=== PATIENT | male | born 1945 | race Caucasian/White ===

== ENCOUNTER → 2016-09-19 | Outpatient (CLI) | payer OTHER ==
[~2016-09-19] MED LIST: ASPI-231 PO; ASPI-498 OR; ATOR20TA PO; ATOR20TA50 PO; DILT240C PO; FAM20T PO; LIS10T PO; NITR0.4S29 SL; NOR10T PO
[2016-09-19 08:16] LABS: Potassium 4.1 mmol/L (3.5-5.1)
[2016-09-19 08:20] LABS: Urine Bilirubin Negative (Negative); Urine Blood Negative /uL (Negative); Urine Color Yellow (Yellow); Urine Glucose Normal (Normal); Urine Ketone Negative (Negative); Urine Mucus FEW (None Seen); Urine Nitrite Negative (Negative); Urine RBC 1 /hpf (0 - 3); Urine Urobilinogen Normal (Negative)
[2016-09-19 08:25] LABS: Albumin 3.8 g/dL (3.4-5.0); BUN/Creatinine Ratio 9.8; Calcium 8.3 mg/dL (8.5-10.1)
[2016-09-19 08:28] LABS: Bilirubin, Total 0.7 mg/dL (0.2-1.0); Total Protein 7.4 g/dL (6.4-8.2)
[2016-09-19 08:46] LABS: Basophils # (auto) 0 uL; Basophils % (auto) 0.6 % (0.0-2.0); Eosinophils # (auto) 0.3 uL; Eosinophils % (auto) 4.4 % (0.0-7.0); Hemoglobin 15.6 g/dL (13.5-17.5); Lymphocytes % (auto) 26.5 % (10.0-50.0); Mean Corpuscular Hemoglobin 29.8 pg (28.0-32.0); Mean Corpuscular Hgb Conc. 31.8 g/dL (32.0-36.0); Mean Corpuscular Volume 93.6 fL (80.0-100.0); Mean Platelet Volume 13.5 fL (7.4-10.4); Monocytes # (auto) 0.6 uL; Neutrophils # (auto) 4.6 uL; Neutrophils % (auto) 60.5 % (37.0-80.0); Platelet Count (auto) 185 10^3/uL (140-450); Red Cell Distribution Width 14.5 % (11.6-16.0); SUSPECT VIEW TRANSMISSION; White Blood Cell 7.7 10^3/uL (4.4-10.8)
== END | disposition home or self-care (01) ==
LOC: LAB 06:31
PROVIDERS: ATTEND Internal Medicine
DX: Z00.00 Encounter for general adult medical examination without abnormal findings (principal)
CPT/HCPCS: 36415; 80053; 80061; 81001; 82043; 83036; 84153; 85025; G0434

== ENCOUNTER 2016-10-23 18:49 | Inpatient (IN) | payer OTHER ==
[~2016-10-23] VITALS: Ht 177.8 cm; Wt 115.0 kg
[2016-10-23] MEDS ORDERED: SODIUM CHLORIDE 0.9% 500 ML IVB ONE (19:03)
[2016-10-23] MEDS ORDERED: PANTOPRAZOLE SODIUM 40 MG/10 ML VIAL IV ONE (19:15)
[2016-10-23] MEDS ORDERED: HYDROmorphone HCL 2 MG/ML VL IV ONE ×2 (19:15→22:00)
[2016-10-23] MEDS ORDERED: ONDANSETRON HCL 4 MG/2 ML VIAL IV ONE (19:15)
[2016-10-23 20:43] LABS: Basophils # (auto) 0 uL; Basophils % (auto) 0.1 % (0.0-2.0); Eosinophils # (auto) 0 uL; Hematocrit 44.5 % (41.0-53.0); Hemoglobin 14.8 g/dL (13.5-17.5); Lymphocytes # (auto) 0.5 uL; Lymphocytes % (auto) 5.5 % (10.0-50.0); Mean Corpuscular Hemoglobin 30.5 pg (28.0-32.0); Mean Corpuscular Hgb Conc. 33.4 g/dL (32.0-36.0); Mean Corpuscular Volume 91.4 fL (80.0-100.0); Mean Platelet Volume 12.4 fL (7.4-10.4); Monocytes % (auto) 10.8 % (0.0-12.0); Neutrophils # (auto) 7.7 uL; Neutrophils % (auto) 83.6 % (37.0-80.0); Platelet Count (auto) 161 10^3/uL (140-450); Red Cell Distribution Width 14.3 % (11.6-16.0); SUSPECT VIEW TRANSMISSION; White Blood Cell 9.2 10^3/uL (4.4-10.8)
[2016-10-23 20:50] LABS: Albumin 3.5 g/dL (3.4-5.0); Amylase 33 U/L (25-115); Anion Gap 10 (5-15); Aspartate Aminotransferase 32 U/L (15-37); BUN/Creatinine Ratio 14.8; Blood Urea Nitrogen 20 mg/dL (7-18); Calcium 7.7 mg/dL (8.5-10.1); Carbon Dioxide 25 mmol/L (21-32); Chloride 98 mmol/L (98-107); GFR African American 67 mL/min; GFR Non-African American 55 mL/min; Glucose 141 mg/dL (74-106); Magnesium 2.4 mg/dL (1.6-2.6); Potassium 4.3 mmol/L (3.5-5.1); Sodium 133 mmol/L (136-145)
[2016-10-23 20:55] LABS: Alkaline Phosphatase 41 U/L (45-117); Bilirubin, Total 0.6 mg/dL (0.2-1.0); Total Protein 7.3 g/dL (6.4-8.2)
[2016-10-23] MEDS ORDERED: ACETAMINOPHEN 500 MG TAB PO PRN (22:15)
[2016-10-23] MEDS ORDERED: DEXTROSE (50%) 50ML SYRG IV PRN (22:15)
[2016-10-23] MEDS ORDERED: SODIUM CHLORIDE 0.9% 1,000 ML IV ONE (22:15)
[2016-10-23] MEDS ORDERED: cefTRIAXone 1GM/50ML D5W 50 ML IV ONE (22:30)
[2016-10-23] MEDS ORDERED: LACTULOSE 20Gm/30ML SOLN PO PRN (22:30)
[2016-10-23] MEDS ORDERED: NITROGLYCERIN 0.4 MG SL TAB SL PRN (22:30)
[2016-10-23] MEDS ORDERED: MORPHINE SULF INJ 2 MG/ML SYRINGE 1ML IV PRN (22:30)
[2016-10-23] MEDS: ATORVASTATIN 20 MG TAB PO SCH (22:32)
[2016-10-23] MEDS: ENOXAPARIN SOD 30 MG/0.3 ML SYRINGE SC SCH (22:32)
[2016-10-23] MEDS: cefTRIAXone 1GM/50ML D5W 50 ML IV SCH (22:32)
[2016-10-23 23:00] VITALS: BP 158/81
[2016-10-23 23:24] LABS: Urine Bilirubin Negative (Negative); Urine Blood 1+ /uL (Negative); Urine Color Yellow (Yellow); Urine Glucose 4+ mg/dL (Normal); Urine Granular Cast FEW /lpf (0); Urine Ketone 1+ (Negative); Urine Mucus FEW (None Seen); Urine Nitrite Negative (Negative); Urine RBC <1 /hpf (0 - 3); Urine Urobilinogen Normal (Negative)
[2016-10-23] MEDS: metroNIDAZOLE 500MG/100ML 100 ML IV SCH (23:42)
[2016-10-23] MEDS: ACCU-CHEK COMFORT CURVE STRIP VI SCH (23:54)
[2016-10-24] MEDS: InsuLIN REG 1unit/0.01ml Soln (100units/ml) SC SCH ×5 (00:10→23:38)
[2016-10-24] MEDS: ACCU-CHEK COMFORT CURVE STRIP VI SCH ×4 (06:09→23:37)
[2016-10-24] MEDS: MORPHINE SULFATE 4 MG/ML SYRG IV PRN ×4 (06:10→14:42)
[2016-10-24] MEDS: metroNIDAZOLE 500MG/100ML 100 ML IV SCH ×3 (06:11→23:26)
[2016-10-24 06:30] LABS: Basophils # (auto) 0 uL; Eosinophils # (auto) 0 uL; Hematocrit 41.1 % (41.0-53.0); Lymphocytes # (auto) 0.6 uL; Lymphocytes % (auto) 5.8 % (10.0-50.0); Mean Corpuscular Volume 91.1 fL (80.0-100.0); Mean Platelet Volume 13.2 fL (7.4-10.4); Monocytes # (auto) 1.3 uL; Neutrophils # (auto) 9.2 uL; Neutrophils % (auto) 82.2 % (37.0-80.0); Platelet Count (auto) 153 10^3/uL (140-450); Red Cell Distribution Width 14.5 % (11.6-16.0); SUSPECT VIEW TRANSMISSION; White Blood Cell 11.2 10^3/uL (4.4-10.8)
[2016-10-24 06:56] LABS: Albumin 3.2 g/dL (3.4-5.0); Calcium 7.4 mg/dL (8.5-10.1)
[2016-10-24 07:00] LABS: Bilirubin, Total 0.6 mg/dL (0.2-1.0); Total Protein 6.6 g/dL (6.4-8.2)
[2016-10-24 09:00] VITALS: BP 138/75
[2016-10-24 09:32] LABS: BUN/Creatinine Ratio 14.1
[2016-10-24] MEDS ORDERED: LISINOPRIL 20 MG TAB PO SCH (10:00)
[2016-10-24] MEDS: ENOXAPARIN SOD 30 MG/0.3 ML SYRINGE SC SCH (10:31)
[2016-10-24] MEDS: PANTOPRAZOLE SODIUM 40 MG/10 ML VIAL IV SCH (10:32)
[2016-10-24] MEDS: ASPirin 81 mg TAB PO SCH (10:32)
[2016-10-24] MEDS: DILTIAZEM HCL 120MG ER CAP PO SCH (10:33)
[2016-10-24] MEDS: cefTRIAXone 1GM/50ML D5W 50 ML IV SCH (10:45)
[2016-10-24] MEDS: SODIUM CHLORIDE 0.9% 1,000 ML IV SCH ×2 (12:27→23:41)
[2016-10-24 13:00] VITALS: BP 150/68
[2016-10-24 16:47] VITALS: BP 141/84
[2016-10-24] MEDS: HYDROmorphone HCL 2 MG/ML VL IV PRN ×2 (17:42→22:04)
[2016-10-24 21:47] VITALS: BP 134/68
[2016-10-24] MEDS: ATORVASTATIN 20 MG TAB PO SCH (22:04)
[2016-10-25] MEDS: HYDROmorphone HCL 2 MG/ML VL IV PRN ×5 (02:09→23:56)
[2016-10-25 05:40] VITALS: BP 108/62
[2016-10-25] MEDS: ACCU-CHEK COMFORT CURVE STRIP VI SCH ×4 (05:52→23:57)
[2016-10-25] MEDS: InsuLIN REG 1unit/0.01ml Soln (100units/ml) SC SCH ×4 (05:53→23:57)
[2016-10-25 05:57] LABS: Basophils # (auto) 0 uL; Eosinophils # (auto) 0 uL; Hemoglobin 14.4 g/dL (13.5-17.5); Lymphocytes # (auto) 0.8 uL; Lymphocytes % (auto) 6.2 % (10.0-50.0); Mean Corpuscular Hemoglobin 30.8 pg (28.0-32.0); Mean Corpuscular Hgb Conc. 33.5 g/dL (32.0-36.0); Mean Platelet Volume 12.9 fL (7.4-10.4); Monocytes # (auto) 0.6 uL; Monocytes % (auto) 4.4 % (0.0-12.0); Neutrophils # (auto) 11.6 uL; Neutrophils % (auto) 89.4 % (37.0-80.0); Platelet Count (auto) 178 10^3/uL (140-450); Red Cell Distribution Width 14.6 % (11.6-16.0); SUSPECT VIEW TRANSMISSION
[2016-10-25 06:18] LABS: BUN/Creatinine Ratio 9.6; Calcium 7.4 mg/dL (8.5-10.1); Magnesium 2.6 mg/dL (1.6-2.6); Potassium 4.7 mmol/L (3.5-5.1)
[2016-10-25] MEDS: metroNIDAZOLE 500MG/100ML 100 ML IV SCH ×3 (06:38→23:23)
[2016-10-25 08:00] VITALS: BP 110/59
[2016-10-25] MEDS: cefTRIAXone 1GM/50ML D5W 50 ML IV SCH (08:54)
[2016-10-25] MEDS: PANTOPRAZOLE SODIUM 40 MG/10 ML VIAL IV SCH (08:54)
[2016-10-25 08:55] VITALS: BP 105/56
[2016-10-25] MEDS: ASPirin 81 mg TAB PO SCH (08:55)
[2016-10-25] MEDS: ENOXAPARIN SOD 30 MG/0.3 ML SYRINGE SC SCH (08:55)
[2016-10-25] MEDS: DILTIAZEM HCL 120MG ER CAP PO SCH (10:00)
[2016-10-25] MEDS: SODIUM CHLORIDE 0.9% 1,000 ML IV SCH ×2 (12:11→22:35)
[2016-10-25] MEDS ORDERED: DILTIAZEM HCL 120MG ER CAP PO ONE (12:15)
[2016-10-25 13:55] VITALS: BP 127/62
[2016-10-25 17:30] VITALS: BP 127/62
[2016-10-25] MEDS: ONDANSETRON HCL 4 MG/2 ML VIAL IV PRN ×2 (19:49→23:57)
[2016-10-25 22:00] VITALS: BP 115/59
[2016-10-26 05:08] VITALS: BP 137/57
[2016-10-26] MEDS: ONDANSETRON HCL 4 MG/2 ML VIAL IV PRN ×2 (05:09→14:27)
[2016-10-26] MEDS: HYDROmorphone HCL 2 MG/ML VL IV PRN (05:09)
[2016-10-26] MEDS: ACCU-CHEK COMFORT CURVE STRIP VI SCH ×3 (06:00→18:00)
[2016-10-26] MEDS: InsuLIN REG 1unit/0.01ml Soln (100units/ml) SC SCH ×3 (06:00→18:00)
[2016-10-26 06:02] LABS: Basophils # (auto) 0 uL; Basophils % (auto) 0.1 % (0.0-2.0); Eosinophils # (auto) 0 uL; Hematocrit 40.3 % (41.0-53.0); Hemoglobin 13.5 g/dL (13.5-17.5); Lymphocytes # (auto) 0.4 uL; Lymphocytes % (auto) 3.4 % (10.0-50.0); Mean Corpuscular Hemoglobin 30.6 pg (28.0-32.0); Mean Corpuscular Hgb Conc. 33.5 g/dL (32.0-36.0); Mean Corpuscular Volume 91.5 fL (80.0-100.0); Mean Platelet Volume 12.6 fL (7.4-10.4); Monocytes # (auto) 0.3 uL; Monocytes % (auto) 2.6 % (0.0-12.0); Neutrophils # (auto) 11.9 uL; Neutrophils % (auto) 93.9 % (37.0-80.0); Platelet Count (auto) 159 10^3/uL (140-450); Red Cell Distribution Width 14.6 % (11.6-16.0); SUSPECT VIEW TRANSMISSION; White Blood Cell 12.7 10^3/uL (4.4-10.8)
[2016-10-26 06:22] LABS: Albumin 2.4 g/dL (3.4-5.0); BUN/Creatinine Ratio 11.8; Bilirubin, Total 0.5 mg/dL (0.2-1.0); Calcium 7.2 mg/dL (8.5-10.1); Potassium 4.2 mmol/L (3.5-5.1)
[2016-10-26] MEDS: metroNIDAZOLE 500MG/100ML 100 ML IV SCH ×3 (06:33→23:41)
[2016-10-26] MEDS: SODIUM CHLORIDE 0.9% 1,000 ML IV SCH ×3 (07:41→22:48)
[2016-10-26] MEDS: ASPirin 81 mg TAB PO SCH (08:48)
[2016-10-26] MEDS: cefTRIAXone 1GM/50ML D5W 50 ML IV SCH (08:48)
[2016-10-26] MEDS: PANTOPRAZOLE SODIUM 40 MG/10 ML VIAL IV SCH (08:48)
[2016-10-26] MEDS: DILTIAZEM HCL 120MG ER CAP PO SCH (08:54)
[2016-10-26 10:06] VITALS: BP 128/67
[2016-10-26 14:50] VITALS: BP 130/56
[2016-10-26 18:27] VITALS: BP 157/94
[2016-10-26 22:00] VITALS: BP 123/63
[2016-10-27] VITALS (8 sets, daily range): BP systolic 123–146; BP diastolic 59–71
[2016-10-27] MEDS: ACCU-CHEK COMFORT CURVE STRIP VI SCH ×4 (00:03→17:38)
[2016-10-27] MEDS: InsuLIN REG 1unit/0.01ml Soln (100units/ml) SC SCH ×4 (00:03→17:39)
[2016-10-27] MEDS: SODIUM CHLORIDE 0.9% 1,000 ML IV SCH ×3 (06:07→19:09)
[2016-10-27 06:17] LABS: Hematocrit 39.6 % (41.0-53.0); Hemoglobin 13.4 g/dL (13.5-17.5); Mean Corpuscular Hemoglobin 30.6 pg (28.0-32.0); Mean Corpuscular Hgb Conc. 33.8 g/dL (32.0-36.0); Mean Corpuscular Volume 90.7 fL (80.0-100.0); Mean Platelet Volume 12.8 fL (7.4-10.4); Platelet Count (auto) 159 10^3/uL (140-450); SUSPECT VIEW TRANSMISSION; White Blood Cell 15.1 10^3/uL (4.4-10.8)
[2016-10-27 06:25] LABS: Metamyelocytes % 0; Myelocytes % 0; Promyelocytes % 0; Reactive Lymphocytes 0
[2016-10-27 06:31] LABS: Prothrombin Time 12.3 sec (9.37-12.3)
[2016-10-27] MEDS: metroNIDAZOLE 500MG/100ML 100 ML IV SCH ×3 (06:38→22:26)
[2016-10-27 06:41] LABS: Albumin 2.3 g/dL (3.4-5.0); Anion Gap 14 (5-15); Blood Urea Nitrogen 60 mg/dL (7-18); Calcium 6.9 mg/dL (8.5-10.1); Carbon Dioxide 19 mmol/L (21-32); Chloride 105 mmol/L (98-107); Glucose 128 mg/dL (74-106); Sodium 138 mmol/L (136-145)
[2016-10-27 06:44] LABS: Amylase 31 U/L (25-115); Aspartate Aminotransferase 46 U/L (15-37); BUN/Creatinine Ratio 18.2; GFR African American 24 mL/min; GFR Non-African American 20 mL/min
[2016-10-27 06:46] LABS: Alkaline Phosphatase 250 U/L (45-117); Bilirubin, Total 0.4 mg/dL (0.2-1.0); Total Protein 6.2 g/dL (6.4-8.2)
[2016-10-27 06:53] LABS: INR 1.19 (0.9-1.15)
[2016-10-27] MEDS: HYDROmorphone HCL 2 MG/ML VL IV PRN ×2 (08:56→22:47)
[2016-10-27] MEDS: cefTRIAXone 1GM/50ML D5W 50 ML IV SCH (09:35)
[2016-10-27] MEDS: DILTIAZEM HCL 120MG ER CAP PO SCH (09:36)
[2016-10-27] MEDS: PANTOPRAZOLE SODIUM 40 MG/10 ML VIAL IV SCH (09:36)
[2016-10-27 09:46] LABS: Burr Cells MODERATE; Platelet Estimate Adequate
[2016-10-27 11:08] LABS: HDL Cholesterol 14 mg/dL (40-59); LDL Cholesterol 16 mg/dL (<100); Triglycerides 76 mg/dL (<150)
[2016-10-27 12:04] LABS: Cholesterol < 50 mg/dL (<200)
[2016-10-28] VITALS (7 sets, daily range): BP systolic 139–169; BP diastolic 71–89
[2016-10-28] MEDS: ACCU-CHEK COMFORT CURVE STRIP VI SCH ×4 (00:14→17:36)
[2016-10-28] MEDS: SODIUM CHLORIDE 0.9% 1,000 ML IV SCH ×3 (01:49→19:07)
[2016-10-28] MEDS: HYDROmorphone HCL 2 MG/ML VL IV PRN ×4 (02:49→21:01)
[2016-10-28] MEDS: InsuLIN REG 1unit/0.01ml Soln (100units/ml) SC SCH ×4 (06:00→17:36)
[2016-10-28] MEDS: metroNIDAZOLE 500MG/100ML 100 ML IV SCH (06:06)
[2016-10-28 06:22] LABS: Basophils # (auto) 0 uL; Eosinophils # (auto) 0 uL; Hematocrit 36.6 % (41.0-53.0); Hemoglobin 12.4 g/dL (13.5-17.5); Lymphocytes # (auto) 0.7 uL; Lymphocytes % (auto) 4.4 % (10.0-50.0); Mean Corpuscular Hemoglobin 31.1 pg (28.0-32.0); Mean Corpuscular Hgb Conc. 33.9 g/dL (32.0-36.0); Mean Corpuscular Volume 91.6 fL (80.0-100.0); Mean Platelet Volume 11.8 fL (7.4-10.4); Monocytes # (auto) 1.2 uL; Monocytes % (auto) 8.1 % (0.0-12.0); Neutrophils # (auto) 13.3 uL; Neutrophils % (auto) 87.5 % (37.0-80.0); Platelet Count (auto) 180 10^3/uL (140-450); Red Cell Distribution Width 15.1 % (11.6-16.0); White Blood Cell 15.1 10^3/uL (4.4-10.8)
[2016-10-28 06:51] LABS: Potassium 3.9 mmol/L (3.5-5.1)
[2016-10-28 07:08] LABS: BUN/Creatinine Ratio 25.3; Bilirubin, Total 0.3 mg/dL (0.2-1.0); Calcium 6.9 mg/dL (8.5-10.1); Total Protein 5.7 g/dL (6.4-8.2)
[2016-10-28] MEDS: DILTIAZEM HCL 120MG ER CAP PO SCH (09:13)
[2016-10-28] MEDS: PANTOPRAZOLE SODIUM 40 MG/10 ML VIAL IV SCH (09:14)
[2016-10-28] MEDS: cefTRIAXone 1GM/50ML D5W 50 ML IV SCH (09:22)
[2016-10-28] MEDS ORDERED: LORazepam 2MG/ML-1ML VIAL IV ONE (10:00)
[2016-10-28] MEDS ORDERED: PIPERACILLIN-TAZOB 3.375GM 100 ML IV ONE (15:00)
[2016-10-29] MEDS: PIPERACILLIN-TAZOB 3.375GM 100 ML IV SCH ×4 (00:58→20:28)
[2016-10-29] MEDS: HYDROmorphone HCL 2 MG/ML VL IV PRN ×3 (01:13→21:16)
[2016-10-29 05:44] VITALS: BP 140/80
[2016-10-29] MEDS: ACCU-CHEK COMFORT CURVE STRIP VI SCH ×4 (06:00→20:28)
[2016-10-29 06:01] LABS: Basophils # (auto) 0 uL; Basophils % (auto) 0.1 % (0.0-2.0); Eosinophils # (auto) 0.1 uL; Eosinophils % (auto) 0.3 % (0.0-7.0); Hematocrit 38.7 % (41.0-53.0); Hemoglobin 12.6 g/dL (13.5-17.5); Lymphocytes # (auto) 0.8 uL; Mean Corpuscular Hemoglobin 30.2 pg (28.0-32.0); Mean Corpuscular Hgb Conc. 32.7 g/dL (32.0-36.0); Mean Corpuscular Volume 92.4 fL (80.0-100.0); Mean Platelet Volume 10.4 fL (7.4-10.4); Monocytes # (auto) 1.5 uL; Monocytes % (auto) 9.8 % (0.0-12.0); Neutrophils # (auto) 13.3 uL; Neutrophils % (auto) 84.8 % (37.0-80.0); Platelet Count (auto) 235 10^3/uL (140-450); Red Cell Distribution Width 14.8 % (11.6-16.0); White Blood Cell 15.7 10^3/uL (4.4-10.8)
[2016-10-29] MEDS: SODIUM CHLORIDE 0.9% 1,000 ML IV SCH ×2 (06:04→19:54)
[2016-10-29 06:15] LABS: Potassium 3.7 mmol/L (3.5-5.1)
[2016-10-29 06:19] LABS: BUN/Creatinine Ratio 22.1; Calcium 7.1 mg/dL (8.5-10.1)
[2016-10-29] MEDS: InsuLIN REG 1unit/0.01ml Soln (100units/ml) SC SCH ×4 (06:39→18:00)
[2016-10-29 08:00] VITALS: BP 152/78
[2016-10-29 09:00] VITALS: BP 152/78
[2016-10-29 13:00] VITALS: BP 160/80
[2016-10-29] MEDS ORDERED: LISINOPRIL 20 MG TAB PO ONE (15:15)
[2016-10-29] MEDS: PANTOPRAZOLE SODIUM 40 MG/10 ML VIAL IV SCH (15:25)
[2016-10-29 16:59] VITALS: BP 152/82
[2016-10-29] MEDS ORDERED: DILTIAZEM HCL 60 MG TAB PO ONE (20:30)
[2016-10-29 22:00] VITALS: BP 148/73
[2016-10-30] MEDS: PIPERACILLIN-TAZOB 3.375GM 100 ML IV SCH ×4 (00:35→18:05)
[2016-10-30] MEDS: DILTIAZEM HCL 60 MG TAB PO SCH ×4 (00:36→18:05)
[2016-10-30] MEDS: SODIUM CHLORIDE 0.9% 1,000 ML IV SCH ×3 (00:40→12:42)
[2016-10-30] MEDS: InsuLIN REG 1unit/0.01ml Soln (100units/ml) SC SCH ×4 (00:40→16:57)
[2016-10-30] MEDS: HYDROmorphone HCL 2 MG/ML VL IV PRN ×5 (01:39→21:05)
[2016-10-30 05:30] VITALS: BP 144/73
[2016-10-30] MEDS: ACCU-CHEK COMFORT CURVE STRIP VI SCH ×4 (06:00→18:05)
[2016-10-30 06:22] LABS: Basophils # (auto) 0 uL; Basophils % (auto) 0.1 % (0.0-2.0); Eosinophils # (auto) 0.2 uL; Eosinophils % (auto) 1.1 % (0.0-7.0); Hematocrit 37.5 % (41.0-53.0); Hemoglobin 12.4 g/dL (13.5-17.5); Lymphocytes % (auto) 6.9 % (10.0-50.0); Mean Corpuscular Hemoglobin 30.1 pg (28.0-32.0); Mean Corpuscular Volume 91.5 fL (80.0-100.0); Mean Platelet Volume 9.7 fL (7.4-10.4); Monocytes # (auto) 1.6 uL; Monocytes % (auto) 10.3 % (0.0-12.0); Neutrophils # (auto) 12.3 uL; Neutrophils % (auto) 81.6 % (37.0-80.0); Platelet Count (auto) 295 10^3/uL (140-450); Red Cell Distribution Width 14.9 % (11.6-16.0); SUSPECT VIEW TRANSMISSION; White Blood Cell 15.1 10^3/uL (4.4-10.8)
[2016-10-30] MEDS ORDERED: DILTIAZEM HCL 120MG ER CAP PO SCH (10:00)
[2016-10-30 10:22] VITALS: BP 150/89
[2016-10-30] MEDS: PANTOPRAZOLE SODIUM 40 MG/10 ML VIAL IV SCH (10:38)
[2016-10-30 13:00] VITALS: BP 145/79
[2016-10-30 15:51] VITALS: BP 140/60
[2016-10-30 22:00] VITALS: BP 150/81
[2016-10-31] MEDS: ACCU-CHEK COMFORT CURVE STRIP VI SCH ×4 (00:16→17:43)
[2016-10-31] MEDS: DILTIAZEM HCL 60 MG TAB PO SCH ×4 (00:17→18:10)
[2016-10-31] MEDS: PIPERACILLIN-TAZOB 3.375GM 100 ML IV SCH ×4 (00:18→18:10)
[2016-10-31] MEDS: SODIUM CHLORIDE 0.9% 1,000 ML IV SCH ×2 (01:15→14:09)
[2016-10-31] MEDS: HYDROmorphone HCL 2 MG/ML VL IV PRN ×5 (01:15→20:30)
[2016-10-31 05:00] VITALS: BP 151/85
[2016-10-31] MEDS: InsuLIN REG 1unit/0.01ml Soln (100units/ml) SC SCH ×4 (06:00→17:43)
[2016-10-31 06:27] LABS: Basophils # (auto) 0 uL; Basophils % (auto) 0.1 % (0.0-2.0); Eosinophils # (auto) 0.3 uL; Hematocrit 39.2 % (41.0-53.0); Hemoglobin 12.8 g/dL (13.5-17.5); Lymphocytes % (auto) 6.7 % (10.0-50.0); Mean Corpuscular Hemoglobin 30.1 pg (28.0-32.0); Mean Corpuscular Hgb Conc. 32.7 g/dL (32.0-36.0); Mean Corpuscular Volume 92.1 fL (80.0-100.0); Mean Platelet Volume 9.4 fL (7.4-10.4); Monocytes # (auto) 1.4 uL; Neutrophils # (auto) 12.8 uL; Neutrophils % (auto) 82.2 % (37.0-80.0); Platelet Count (auto) 328 10^3/uL (140-450); Red Cell Distribution Width 15.1 % (11.6-16.0); White Blood Cell 15.6 10^3/uL (4.4-10.8)
[2016-10-31 06:48] LABS: BUN/Creatinine Ratio 12.8; Calcium 7.3 mg/dL (8.5-10.1); Potassium 3.5 mmol/L (3.5-5.1)
[2016-10-31] MEDS: PANTOPRAZOLE SODIUM 40 MG/10 ML VIAL IV SCH (09:54)
[2016-10-31 10:31] VITALS: BP 168/71
[2016-10-31 13:00] VITALS: BP 150/68
[2016-10-31 17:08] VITALS: BP 157/83
[2016-10-31 22:00] VITALS: BP 171/77
[2016-11-01] MEDS: PIPERACILLIN-TAZOB 3.375GM 100 ML IV SCH ×4 (00:03→17:15)
[2016-11-01] MEDS: ACCU-CHEK COMFORT CURVE STRIP VI SCH ×4 (00:04→17:16)
[2016-11-01] MEDS: DILTIAZEM HCL 60 MG TAB PO SCH ×4 (00:04→17:14)
[2016-11-01] MEDS: SODIUM CHLORIDE 0.9% 1,000 ML IV SCH ×2 (00:19→13:38)
[2016-11-01] MEDS: HYDROmorphone HCL 2 MG/ML VL IV PRN ×5 (00:36→20:15)
[2016-11-01 05:00] VITALS: BP 146/68
[2016-11-01 05:05] LABS: Basophils # (auto) 0 uL; Basophils % (auto) 0.1 % (0.0-2.0); Eosinophils # (auto) 0.2 uL; Eosinophils % (auto) 1.6 % (0.0-7.0); Hematocrit 38.2 % (41.0-53.0); Hemoglobin 12.6 g/dL (13.5-17.5); Lymphocytes % (auto) 6.7 % (10.0-50.0); Mean Corpuscular Hemoglobin 30.2 pg (28.0-32.0); Mean Corpuscular Hgb Conc. 33.1 g/dL (32.0-36.0); Mean Corpuscular Volume 91.3 fL (80.0-100.0); Mean Platelet Volume 9.3 fL (7.4-10.4); Monocytes # (auto) 1.1 uL; Monocytes % (auto) 7.2 % (0.0-12.0); Neutrophils # (auto) 12.7 uL; Neutrophils % (auto) 84.4 % (37.0-80.0); Platelet Count (auto) 345 10^3/uL (140-450); Red Cell Distribution Width 14.9 % (11.6-16.0); White Blood Cell 15.1 10^3/uL (4.4-10.8)
[2016-11-01] MEDS: InsuLIN REG 1unit/0.01ml Soln (100units/ml) SC SCH ×4 (06:00→17:15)
[2016-11-01 08:00] VITALS: BP 131/81
[2016-11-01 09:00] VITALS: BP 131/81
[2016-11-01] MEDS: PANTOPRAZOLE SODIUM 40 MG/10 ML VIAL IV SCH (09:47)
[2016-11-01 13:02] VITALS: BP 152/74
[2016-11-01 17:00] VITALS: BP 167/87
[2016-11-01 22:13] VITALS: BP 154/78
[2016-11-02] MEDS: PIPERACILLIN-TAZOB 3.375GM 100 ML IV SCH ×4 (00:12→17:02)
[2016-11-02] MEDS: ACCU-CHEK COMFORT CURVE STRIP VI SCH ×4 (00:13→17:20)
[2016-11-02] MEDS: DILTIAZEM HCL 60 MG TAB PO SCH ×4 (00:13→17:04)
[2016-11-02] MEDS: HYDROmorphone HCL 2 MG/ML VL IV PRN ×6 (00:30→21:49)
[2016-11-02] MEDS: SODIUM CHLORIDE 0.9% 1,000 ML IV SCH ×2 (02:52→14:45)
[2016-11-02 05:00] VITALS: BP 166/76
[2016-11-02 05:06] LABS: Basophils # (auto) 0 uL; Basophils % (auto) 0.2 % (0.0-2.0); Eosinophils # (auto) 0.2 uL; Eosinophils % (auto) 1.7 % (0.0-7.0); Hematocrit 38.7 % (41.0-53.0); Hemoglobin 12.9 g/dL (13.5-17.5); Lymphocytes % (auto) 6.9 % (10.0-50.0); Mean Corpuscular Hemoglobin 30.2 pg (28.0-32.0); Mean Corpuscular Hgb Conc. 33.3 g/dL (32.0-36.0); Mean Corpuscular Volume 90.9 fL (80.0-100.0); Mean Platelet Volume 9.7 fL (7.4-10.4); Monocytes # (auto) 1.1 uL; Neutrophils # (auto) 11.5 uL; Neutrophils % (auto) 83.2 % (37.0-80.0); Platelet Count (auto) 363 10^3/uL (140-450); Red Cell Distribution Width 15.1 % (11.6-16.0); White Blood Cell 13.9 10^3/uL (4.4-10.8)
[2016-11-02 05:17] LABS: Calcium 7.3 mg/dL (8.5-10.1); Potassium 3.6 mmol/L (3.5-5.1)
[2016-11-02 05:19] LABS: BUN/Creatinine Ratio 9.7
[2016-11-02] MEDS: InsuLIN REG 1unit/0.01ml Soln (100units/ml) SC SCH ×4 (05:30→17:21)
[2016-11-02 06:28] VITALS: BP 151/80
[2016-11-02 09:00] VITALS: BP 158/79
[2016-11-02] MEDS: PANTOPRAZOLE SODIUM 40 MG/10 ML VIAL IV SCH (10:05)
[2016-11-02] MEDS ORDERED: LISINOPRIL 10 MG TAB PO ONE (12:00)
[2016-11-02 13:00] VITALS: BP 154/85
[2016-11-02 16:56] VITALS: BP 169/89
[2016-11-02 21:46] VITALS: BP 162/82
[2016-11-03] VITALS (7 sets, daily range): BP systolic 152–175; BP diastolic 78–88
[2016-11-03] MEDS: PIPERACILLIN-TAZOB 3.375GM 100 ML IV SCH ×5 (00:06→23:41)
[2016-11-03] MEDS: ACCU-CHEK COMFORT CURVE STRIP VI SCH ×5 (00:07→23:42)
[2016-11-03] MEDS: DILTIAZEM HCL 60 MG TAB PO SCH ×5 (00:07→23:42)
[2016-11-03] MEDS: HYDROmorphone HCL 2 MG/ML VL IV PRN ×6 (01:58→23:42)
[2016-11-03] MEDS: SODIUM CHLORIDE 0.9% 1,000 ML IV SCH (03:52)
[2016-11-03] MEDS: InsuLIN REG 1unit/0.01ml Soln (100units/ml) SC SCH ×5 (05:47→23:41)
[2016-11-03] MEDS ORDERED: ceFOXitin 2GM/100ML D5W 100 ML IV ONE (07:00)
[2016-11-03] MEDS: PANTOPRAZOLE SODIUM 40 MG/10 ML VIAL IV SCH (09:40)
[2016-11-03] MEDS: LISINOPRIL 10 MG TAB PO SCH (09:41)
[2016-11-03 14:36] LABS: INR 1.24 (0.9-1.15); Partial Thromboplastin Time 28.8 sec (22.64-33.71); Prothrombin Time 12.8 sec (9.37-12.3)
[2016-11-03] MEDS ORDERED: FUROSEMIDE 40 MG/4 ML VIAL IV ONE (15:15)
[2016-11-03 16:35] LABS: B-Type Natriuretic Peptide 192.57 pg/mL (0-100); Temperature: 23.4 C (20.0-25.0)
[2016-11-04] MEDS: HYDROmorphone HCL 2 MG/ML VL IV PRN ×5 (04:12→22:03)
[2016-11-04 05:00] VITALS: BP 154/85
[2016-11-04] MEDS: ACCU-CHEK COMFORT CURVE STRIP VI SCH ×3 (05:37→18:04)
[2016-11-04] MEDS: PIPERACILLIN-TAZOB 3.375GM 100 ML IV SCH ×3 (05:37→17:59)
[2016-11-04] MEDS: InsuLIN REG 1unit/0.01ml Soln (100units/ml) SC SCH ×3 (05:49→18:00)
[2016-11-04] MEDS: DILTIAZEM HCL 60 MG TAB PO SCH ×3 (05:51→17:58)
[2016-11-04 06:11] LABS: Basophils # (auto) 0 uL; Basophils % (auto) 0.4 % (0.0-2.0); Eosinophils # (auto) 0.3 uL; Eosinophils % (auto) 2.8 % (0.0-7.0); Hematocrit 39.5 % (41.0-53.0); Lymphocytes # (auto) 1.2 uL; Mean Corpuscular Volume 90.8 fL (80.0-100.0); Mean Platelet Volume 9.9 fL (7.4-10.4); Monocytes # (auto) 1.1 uL; Monocytes % (auto) 8.8 % (0.0-12.0); Neutrophils # (auto) 9.6 uL; Platelet Count (auto) 350 10^3/uL (140-450); White Blood Cell 12.3 10^3/uL (4.4-10.8)
[2016-11-04 06:33] LABS: BUN/Creatinine Ratio 9.6; Magnesium 2.1 mg/dL (1.6-2.6); Potassium 4.1 mmol/L (3.5-5.1)
[2016-11-04 09:00] VITALS: BP 152/75
[2016-11-04] MEDS: PANTOPRAZOLE SODIUM 40 MG/10 ML VIAL IV SCH (10:12)
[2016-11-04] MEDS: LISINOPRIL 10 MG TAB PO SCH (10:12)
[2016-11-04] MEDS ORDERED: SODIUM CHLORIDE 0.9% 1,000 ML IV SCH (12:22)
[2016-11-04 13:00] VITALS: BP 165/90
[2016-11-04] MEDS ORDERED: FUROSEMIDE 40 MG/4 ML VIAL IV ONE (13:15)
[2016-11-04] MEDS ORDERED: ALBUTEROL SULF 2.5 MG/0.5ML(0.5%) NEB SOLN NEB PRN (13:30)
[2016-11-04] MEDS ORDERED: IPRATROPIUM BROM 0.5 MG/2.5ML INH SOL NEB PRN (13:30)
[2016-11-04] MEDS ORDERED: amLODIPine BESYLATE 5 MG TAB PO ONE (15:00)
[2016-11-04 17:00] VITALS: BP 147/77
[2016-11-04 22:00] VITALS: BP 152/77
[2016-11-05] MEDS: DILTIAZEM HCL 60 MG TAB PO SCH ×4 (00:12→17:54)
[2016-11-05] MEDS: PIPERACILLIN-TAZOB 3.375GM 100 ML IV SCH ×4 (00:12→17:53)
[2016-11-05] MEDS: ACCU-CHEK COMFORT CURVE STRIP VI SCH ×5 (00:12→17:26)
[2016-11-05 00:46] VITALS: BP 152/77
[2016-11-05 05:00] VITALS: BP 131/72
[2016-11-05] MEDS: HYDROmorphone HCL 2 MG/ML VL IV PRN ×4 (05:20→23:00)
[2016-11-05] MEDS: InsuLIN REG 1unit/0.01ml Soln (100units/ml) SC SCH ×5 (05:32→17:26)
[2016-11-05 07:21] LABS: Calcium 8.2 mg/dL (8.5-10.1); Potassium 3.8 mmol/L (3.5-5.1)
[2016-11-05 07:23] LABS: BUN/Creatinine Ratio 7.1
[2016-11-05] MEDS ORDERED: LIDOCAINE VISCOUS 2% 15ML UD PO ONE (08:00)
[2016-11-05] MEDS ORDERED: MIDAZOLAM HCL 5 MG/ML-1ML VIAL IV ONE (08:00)
[2016-11-05] MEDS ORDERED: fentaNYL CITRATE 100 MCG/2 ML VL IV ONE (08:00)
[2016-11-05] MEDS ORDERED: MIDAZOLAM HCL 1MG/1ML-2 ML VIAL ONE (08:27)
[2016-11-05 09:00] VITALS: BP 150/81
[2016-11-05] MEDS ORDERED: amLODIPine BESYLATE 5 MG TAB PO SCH (10:00)
[2016-11-05] MEDS: PANTOPRAZOLE SODIUM 40 MG/10 ML VIAL IV SCH ×2 (11:11→12:03)
[2016-11-05] MEDS ORDERED: DEXTROSE (50%) 50ML SYRG IV PRN (11:45)
[2016-11-05] MEDS ORDERED: METOPROLOL TARTRATE 25 MG TAB PO ONE (11:45)
[2016-11-05] MEDS ORDERED: LACTULOSE 20Gm/30ML SOLN PO PRN (11:45)
[2016-11-05] MEDS ORDERED: ACETAMINOPHEN 500 MG TAB PO PRN (11:45)
[2016-11-05 13:03] VITALS: BP 161/81
[2016-11-05 17:30] VITALS: BP 147/80
[2016-11-05] MEDS: METOPROLOL TARTRATE 25 MG TAB PO SCH (21:47)
[2016-11-05 22:08] VITALS: BP 141/74
[2016-11-06] MEDS: DILTIAZEM HCL 60 MG TAB PO SCH ×5 (00:01→23:33)
[2016-11-06] MEDS: PIPERACILLIN-TAZOB 3.375GM 100 ML IV SCH ×5 (00:01→23:34)
[2016-11-06] MEDS: ACCU-CHEK COMFORT CURVE STRIP VI SCH ×5 (00:02→23:50)
[2016-11-06] MEDS: HYDROmorphone HCL 2 MG/ML VL IV PRN ×3 (03:47→22:09)
[2016-11-06 04:51] VITALS: BP 134/69
[2016-11-06] MEDS: InsuLIN REG 1unit/0.01ml Soln (100units/ml) SC SCH ×5 (06:00→23:50)
[2016-11-06 08:00] VITALS: BP 147/74
[2016-11-06 09:00] VITALS: BP 147/74
[2016-11-06 09:35] LABS: Basophils # (auto) 0.1 uL; Basophils % (auto) 0.6 % (0.0-2.0); Eosinophils # (auto) 0.3 uL; Eosinophils % (auto) 2.8 % (0.0-7.0); Hemoglobin 12.9 g/dL (13.5-17.5); Lymphocytes # (auto) 1.2 uL; Lymphocytes % (auto) 11.7 % (10.0-50.0); Mean Corpuscular Hemoglobin 30.1 pg (28.0-32.0); Mean Corpuscular Hgb Conc. 33.1 g/dL (32.0-36.0); Mean Corpuscular Volume 90.8 fL (80.0-100.0); Mean Platelet Volume 10.4 fL (7.4-10.4); Monocytes # (auto) 0.9 uL; Monocytes % (auto) 8.5 % (0.0-12.0); Neutrophils # (auto) 7.9 uL; Neutrophils % (auto) 76.4 % (37.0-80.0); Platelet Count (auto) 344 10^3/uL (140-450); Red Cell Distribution Width 15.4 % (11.6-16.0); SUSPECT VIEW TRANSMISSION; White Blood Cell 10.4 10^3/uL (4.4-10.8)
[2016-11-06 09:58] LABS: BUN/Creatinine Ratio 7.3; Calcium 8.2 mg/dL (8.5-10.1); Potassium 4.1 mmol/L (3.5-5.1)
[2016-11-06] MEDS: PANTOPRAZOLE SODIUM 40 MG/10 ML VIAL IV SCH (10:15)
[2016-11-06] MEDS: METOPROLOL TARTRATE 25 MG TAB PO SCH ×2 (10:15→21:53)
[2016-11-06 12:29] VITALS: BP 148/74
[2016-11-06] MEDS ORDERED: BUPIVACAINE 0.5% P/F INJ 10 ML VIAL ONE (15:16)
[2016-11-06] MEDS ORDERED: BUPIVACAINE 0.25% INJ 50ML VIAL ONE (15:16)
[2016-11-06] MEDS ORDERED: BUPIVACAINE HCL 50 ML ONE (15:16)
[2016-11-06] MEDS ORDERED: LIDOCAINE 1% HCL (LOCAL ANESTH.) INJ 20ML MDV ONE (15:16)
[2016-11-06] MEDS ORDERED: fentaNYL CITRATE 100 MCG/2 ML VL ONE (16:04)
[2016-11-06] MEDS ORDERED: ROCURONIUM 10MG/ML 10ML VIAL IV ONE (16:04)
[2016-11-06] MEDS ORDERED: MIDAZOLAM HCL 1MG/1ML-2 ML VIAL ONE (16:04)
[2016-11-06] MEDS ORDERED: PROPOFOL 10 MG/ML 20 ML IV ONE (16:04)
[2016-11-06] MEDS ORDERED: POVIDONE IODINE 10 % TOPICAL OINT 30GM TOP ONE (17:02)
[2016-11-06] MEDS ORDERED: ceFOXitin 2GM/100ML D5W 100 ML IV ONE (17:05)
[2016-11-06] MEDS ORDERED: HYDROmorphone HCL 2 MG/ML VL ONE ×2 (18:20→19:06)
[2016-11-06] MEDS ORDERED: HYDROmorphone HCL 2 MG/ML VL IV PRN (19:15)
[2016-11-06 20:00] VITALS: BP 122/75
[2016-11-06 22:00] VITALS: BP 125/72
[2016-11-06] MEDS: ONDANSETRON HCL 4 MG/2 ML VIAL IV PRN (22:09)
[2016-11-06] MEDS: HYDROcodone-ACET 5/325MG TAB PO PRN (23:29)
[2016-11-07] MEDS: HYDROmorphone HCL 2 MG/ML VL IV PRN ×5 (02:27→21:53)
[2016-11-07] MEDS: HYDROcodone-ACET 5/325MG TAB PO PRN ×5 (04:35→20:38)
[2016-11-07 05:00] VITALS: BP 137/75
[2016-11-07 05:58] LABS: Basophils # (auto) 0 uL; Basophils % (auto) 0.1 % (0.0-2.0); Eosinophils # (auto) 0 uL; Eosinophils % (auto) 0.2 % (0.0-7.0); Hematocrit 38.2 % (41.0-53.0); Hemoglobin 12.4 g/dL (13.5-17.5); Lymphocytes # (auto) 1.1 uL; Lymphocytes % (auto) 6.9 % (10.0-50.0); Mean Corpuscular Hemoglobin 30.1 pg (28.0-32.0); Mean Corpuscular Hgb Conc. 32.6 g/dL (32.0-36.0); Mean Corpuscular Volume 92.3 fL (80.0-100.0); Mean Platelet Volume 11.1 fL (7.4-10.4); Monocytes # (auto) 1.2 uL; Monocytes % (auto) 8.1 % (0.0-12.0); Neutrophils % (auto) 84.7 % (37.0-80.0); Platelet Count (auto) 372 10^3/uL (140-450); Red Cell Distribution Width 15.4 % (11.6-16.0); SUSPECT VIEW TRANSMISSION; White Blood Cell 15.4 10^3/uL (4.4-10.8)
[2016-11-07 06:39] LABS: Calcium 7.7 mg/dL (8.5-10.1); Potassium 4.2 mmol/L (3.5-5.1)
[2016-11-07 06:43] LABS: BUN/Creatinine Ratio 9.4; Magnesium 2.2 mg/dL (1.6-2.6)
[2016-11-07] MEDS: PIPERACILLIN-TAZOB 3.375GM 100 ML IV SCH ×4 (06:44→23:29)
[2016-11-07] MEDS: DILTIAZEM HCL 60 MG TAB PO SCH ×4 (06:46→23:29)
[2016-11-07] MEDS: InsuLIN REG 1unit/0.01ml Soln (100units/ml) SC SCH ×4 (06:46→23:50)
[2016-11-07] MEDS: ACCU-CHEK COMFORT CURVE STRIP VI SCH ×4 (06:46→23:50)
[2016-11-07 09:00] VITALS: BP 138/69
[2016-11-07] MEDS: PANTOPRAZOLE SODIUM 40 MG/10 ML VIAL IV SCH (09:58)
[2016-11-07] MEDS: METOPROLOL TARTRATE 25 MG TAB PO SCH ×2 (09:59→21:52)
[2016-11-07 13:00] VITALS: BP 127/68
[2016-11-07 17:08] VITALS: BP 145/75
[2016-11-07 22:00] VITALS: BP 138/70
[2016-11-08 01:37] VITALS: BP 133/70
[2016-11-08] MEDS: HYDROmorphone HCL 2 MG/ML VL IV PRN ×3 (01:54→10:08)
[2016-11-08 05:00] VITALS: BP 117/65
[2016-11-08] MEDS: InsuLIN REG 1unit/0.01ml Soln (100units/ml) SC SCH ×4 (06:00→23:35)
[2016-11-08] MEDS: DILTIAZEM HCL 60 MG TAB PO SCH ×4 (06:00→23:33)
[2016-11-08 06:06] LABS: Basophils # (auto) 0 uL; Basophils % (auto) 0.2 % (0.0-2.0); Eosinophils # (auto) 0.2 uL; Eosinophils % (auto) 1.4 % (0.0-7.0); Hematocrit 36.2 % (41.0-53.0); Lymphocytes # (auto) 1.1 uL; Lymphocytes % (auto) 8.9 % (10.0-50.0); Mean Corpuscular Hemoglobin 30.5 pg (28.0-32.0); Mean Corpuscular Hgb Conc. 33.2 g/dL (32.0-36.0); Mean Corpuscular Volume 91.9 fL (80.0-100.0); Mean Platelet Volume 11.3 fL (7.4-10.4); Monocytes # (auto) 1.2 uL; Monocytes % (auto) 10.1 % (0.0-12.0); Neutrophils # (auto) 9.7 uL; Neutrophils % (auto) 79.4 % (37.0-80.0); Platelet Count (auto) 304 10^3/uL (140-450); Red Cell Distribution Width 15.6 % (11.6-16.0); SUSPECT VIEW TRANSMISSION; White Blood Cell 12.3 10^3/uL (4.4-10.8)
[2016-11-08 06:09] LABS: BUN/Creatinine Ratio 9.2; Magnesium 2.2 mg/dL (1.6-2.6); Potassium 4.4 mmol/L (3.5-5.1)
[2016-11-08] MEDS: PIPERACILLIN-TAZOB 3.375GM 100 ML IV SCH ×2 (06:09→11:46)
[2016-11-08] MEDS: ACCU-CHEK COMFORT CURVE STRIP VI SCH ×4 (06:09→23:34)
[2016-11-08 06:56] LABS: INR 1.22 (0.9-1.15); Prothrombin Time 12.6 sec (9.37-12.3)
[2016-11-08 08:06] VITALS: BP 132/76
[2016-11-08] MEDS: ONDANSETRON HCL 4 MG/2 ML VIAL IV PRN (10:08)
[2016-11-08] MEDS: METOPROLOL TARTRATE 25 MG TAB PO SCH ×2 (10:08→21:36)
[2016-11-08] MEDS: PANTOPRAZOLE SODIUM 40 MG/10 ML VIAL IV SCH (10:08)
[2016-11-08 11:44] VITALS: BP 137/71
[2016-11-08] MEDS ORDERED: HYDROmorphone HCL 2 MG/ML VL IV PRN (13:15)
[2016-11-08] MEDS: metroNIDAZOLE 500 MG TAB PO SCH ×2 (15:06→21:36)
[2016-11-08] MEDS: HYDROcodone-ACET 7.5/325MG TAB PO PRN ×2 (15:16→19:31)
[2016-11-08 17:07] VITALS: BP 123/68
[2016-11-08] MEDS ORDERED: PIPERACILLIN-TAZOB 3.375GM 100 ML IV SCH (18:00)
[2016-11-08] MEDS: AMOXICILLIN & POT CLAVULANATE 875 MG TAB PO SCH (21:36)
[2016-11-08 22:09] VITALS: BP 134/92
[2016-11-09 05:05] VITALS: BP 148/76
[2016-11-09] MEDS: InsuLIN REG 1unit/0.01ml Soln (100units/ml) SC SCH (05:37)
[2016-11-09] MEDS: ACCU-CHEK COMFORT CURVE STRIP VI SCH (05:37)
[2016-11-09] MEDS: metroNIDAZOLE 500 MG TAB PO SCH (05:38)
[2016-11-09] MEDS: DILTIAZEM HCL 60 MG TAB PO SCH (05:39)
[2016-11-09 07:29] VITALS: BP 133/66
[2016-11-09] MEDS: AMOXICILLIN & POT CLAVULANATE 875 MG TAB PO SCH (09:02)
[2016-11-09] MEDS: METOPROLOL TARTRATE 25 MG TAB PO SCH (09:03)
[2016-11-09 09:38] VITALS: BP 133/66
[2016-11-09] MEDS ORDERED: PANTOPRAZOLE 40 MG TAB PO SCH (10:00)
== END 2016-11-09 11:32 | disposition home health service (06) | DRG 853 ==
LOC: EDBD 18:49 → ER 18:53 → TELE 18:54 → TELE-WESTW 23:00
PROVIDERS: ADMIT Family Medicine; ATTEND Internal Medicine
PROC: 0FT44ZZ Resection of Gallbladder, Percutaneous Endoscopic Approach (ICD-10-PCS; 2016-11-06)
PROC: B246ZZ4 Ultrasonography of Right and Left Heart, Transesophageal (ICD-10-PCS; principal; 2016-11-06 16:26)
DX: A41.9 Sepsis, unspecified organism (principal); N17.0 Acute kidney failure with tubular necrosis; K75.0 Abscess of liver; K80.00 Calculus of gallbladder with acute cholecystitis without obstruction; N28.0 Ischemia and infarction of kidney; R18.8 Other ascites; I47.1 Supraventricular tachycardia; E78.5 Hyperlipidemia, unspecified; K21.9 Gastro-esophageal reflux disease without esophagitis; I25.10 Atherosclerotic heart disease of native coronary artery without angina pectoris; E11.21 Type 2 diabetes mellitus with diabetic nephropathy; E11.22 Type 2 diabetes mellitus with diabetic chronic kidney disease; E86.0 Dehydration; I12.9 Hypertensive chronic kidney disease with stage 1 through stage 4 chronic kidney disease, or unspecified chronic kidney disease; I48.91 Unspecified atrial fibrillation; I70.8 Atherosclerosis of other arteries; K40.90 Unilateral inguinal hernia, without obstruction or gangrene, not specified as recurrent; E66.01 Morbid (severe) obesity due to excess calories; I34.1 Nonrheumatic mitral (valve) prolapse; K76.0 Fatty (change of) liver, not elsewhere classified; E89.0 Postprocedural hypothyroidism; N18.3 Chronic kidney disease, stage 3 (moderate); N28.1 Cyst of kidney, acquired; N40.0 Benign prostatic hyperplasia without lower urinary tract symptoms; Z95.5 Presence of coronary angioplasty implant and graft; Z79.82 Long term (current) use of aspirin; Z84.1 Family history of disorders of kidney and ureter; Z68.36 Body mass index [BMI] 36.0-36.9, adult; Z83.3 Family history of diabetes mellitus; Z95.1 Presence of aortocoronary bypass graft; Z82.49 Family history of ischemic heart disease and other diseases of the circulatory system; Z79.899 Other long term (current) drug therapy; Z80.9 Family history of malignant neoplasm, unspecified
CPT/HCPCS: 36415; 71010; 74176; 76700; 76705; 78226; 80048; 80053; 80061; 81001; 82150; 82550; 82962; 83036; 83605; 83690; 83735; 83880; 84484; 85007; 85025; 85027; 85610; 85730; 86850; 86900; 86901; 87040; 93005; 93306; 93312; 94640; 94761; 96361; 96374; 96375; C9113; J0694; J0696; J1815; J2001; J2250; J2405; J2543; J2704; J3490

== ENCOUNTER → 2017-02-03 | Outpatient (CLI) | payer OTHER ==
[2017-02-03 10:02] LABS: Basophils # (auto) 0 uL; Basophils % (auto) 0.5 % (0.0-2.0); CONDITION Y; Eosinophils # (auto) 0.4 uL; Eosinophils % (auto) 5.2 % (0.0-7.0); Hematocrit 43.3 % (41.0-53.0); Hemoglobin 14.8 g/dL (13.5-17.5); Lymphocytes # (auto) 1.8 uL; Lymphocytes % (auto) 23.9 % (10.0-50.0); Mean Corpuscular Hemoglobin 31.8 pg (28.0-32.0); Mean Corpuscular Hgb Conc. 34.2 g/dL (32.0-36.0); Mean Corpuscular Volume 92.9 fL (80.0-100.0); Mean Platelet Volume 12.9 fL (7.4-10.4); Monocytes # (auto) 0.5 uL; Monocytes % (auto) 6.7 % (0.0-12.0); Neutrophils # (auto) 4.8 uL; Neutrophils % (auto) 63.7 % (37.0-80.0); Platelet Count (auto) 196 10^3/uL (140-450); Red Cell Distribution Width 14.2 % (11.6-16.0); White Blood Cell 7.6 10^3/uL (4.4-10.8)
[2017-02-03 10:07] LABS: Urine Bilirubin Negative (Negative); Urine Blood Negative /uL (Negative); Urine Color Yellow (Yellow); Urine Glucose Normal (Normal); Urine Ketone Negative (Negative); Urine Nitrite Negative (Negative); Urine RBC 2 /hpf (0 - 3); Urine Squamous Epithelial Cell FEW /hpf (<5); Urine Urobilinogen Normal (Negative); Urine pH 5.5 (5.0-8.0)
[2017-02-03 10:24] LABS: Albumin 3.6 g/dL (3.4-5.0); BUN/Creatinine Ratio 16.2; Bilirubin, Total 0.5 mg/dL (0.2-1.0); Calcium 8.5 mg/dL (8.5-10.1); Potassium 4.4 mmol/L (3.5-5.1)
== END | disposition home or self-care (01) ==
LOC: LAB 09:25
PROVIDERS: ATTEND Internal Medicine
DX: Z00.00 Encounter for general adult medical examination without abnormal findings (principal); I10 Essential (primary) hypertension; E11.9 Type 2 diabetes mellitus without complications
CPT/HCPCS: 36415; 80053; 81001; 83036; 84153; 84443; 85025

== ENCOUNTER → 2017-02-09 | Outpatient (CLI) | payer OTHER | END | disposition home or self-care (01) | LOC: LAB 11:56 | PROVIDERS: ATTEND Internal Medicine | DX: Z00.00 Encounter for general adult medical examination without abnormal findings (principal); E11.9 Type 2 diabetes mellitus without complications; I10 Essential (primary) hypertension | CPT/HCPCS: 82270 ==

== ENCOUNTER → 2017-07-27 | Outpatient (CLI) | payer OTHER ==
[2017-07-27 08:37] LABS: Basophils # (auto) 0.1 uL; Basophils % (auto) 0.8 % (0.0-2.0); Eosinophils # (auto) 0.3 uL; Eosinophils % (auto) 3.4 % (0.0-7.0); Hematocrit 46.5 % (41.0-53.0); Hemoglobin 15.5 g/dL (13.5-17.5); Lymphocytes % (auto) 22.3 % (10.0-50.0); Mean Corpuscular Hemoglobin 31.6 pg (28.0-32.0); Mean Corpuscular Hgb Conc. 33.4 g/dL (32.0-36.0); Mean Corpuscular Volume 94.6 fL (80.0-100.0); Mean Platelet Volume 11.7 fL (6.9-10.8); Monocytes # (auto) 0.8 uL; Monocytes % (auto) 9.1 % (0.0-12.0); Neutrophils # (auto) 5.7 uL; Neutrophils % (auto) 64.4 % (37.0-80.0); Platelet Count (auto) 166 10^3/uL (140-450); White Blood Cell 8.8 10^3/uL (4.4-10.8)
[2017-07-27 09:39] LABS: Albumin 3.9 g/dL (3.4-5.0); BUN/Creatinine Ratio 11.8; Bilirubin, Total 0.7 mg/dL (0.2-1.0); Calcium 8.2 mg/dL (8.5-10.1); Total Protein 7.6 g/dL (6.4-8.2)
== END | disposition home or self-care (01) ==
LOC: LAB 08:16
PROVIDERS: ATTEND Physician Assistant
DX: Z00.01 Encounter for general adult medical examination with abnormal findings (principal); E11.22 Type 2 diabetes mellitus with diabetic chronic kidney disease; I12.9 Hypertensive chronic kidney disease with stage 1 through stage 4 chronic kidney disease, or unspecified chronic kidney disease; N18.3 Chronic kidney disease, stage 3 (moderate); E78.2 Mixed hyperlipidemia
CPT/HCPCS: 36415; 80053; 80061; 83036; 84153; 84403; 85025

== ENCOUNTER 2017-09-02 11:44 | Emergency (ER) | payer OTHER ==
[~2017-09-02] VITALS: Ht 177.8 cm; Wt 113.4 kg
[2017-09-02 12:51] LABS: Basophils # (auto) 0 uL; Basophils % (auto) 0.4 % (0.0-2.0); Eosinophils # (auto) 0.3 uL; Eosinophils % (auto) 2.7 % (0.0-7.0); Hematocrit 45.8 % (41.0-53.0); Hemoglobin 15.1 g/dL (13.5-17.5); Lymphocytes # (auto) 1.5 uL; Lymphocytes % (auto) 16.3 % (10.0-50.0); Mean Corpuscular Hemoglobin 31.1 pg (28.0-32.0); Mean Corpuscular Volume 94.1 fL (80.0-100.0); Monocytes # (auto) 0.6 uL; Monocytes % (auto) 6.7 % (0.0-12.0); Neutrophils # (auto) 6.9 uL; Neutrophils % (auto) 73.9 % (37.0-80.0); Platelet Count (auto) 174 10^3/uL (140-450); Red Blood Cells 4.87 10^6/uL (4.5-5.90); Red Cell Distribution Width 14.1 % (11.8-14.3); White Blood Cell 9.4 10^3/uL (4.4-10.8)
[2017-09-02] MEDS ORDERED: SODIUM CHLORIDE 0.9% 1,000 ML IV ONE (12:57)
[2017-09-02 13:04] VITALS: BP 156/92
[2017-09-02 13:44] LABS: Alanine Aminotransferase 47 U/L (16-61); Albumin 3.9 g/dL (3.4-5.0); Alkaline Phosphatase 46 U/L (45-117); Aspartate Aminotransferase 36 U/L (15-37); BUN/Creatinine Ratio 10.9; Bilirubin, Total 0.7 mg/dL (0.2-1.0); Blood Urea Nitrogen 14 mg/dL (7-18); Calcium 7.8 mg/dL (8.5-10.1); Chloride 107 mmol/L (98-107); GFR African American 71 mL/min; GFR Non-African American 59 mL/min; Glucose 104 mg/dL (74-106); Magnesium 2.3 mg/dL (1.6-2.6); Potassium 4.6 mmol/L (3.5-5.1); Sodium 138 mmol/L (136-145); Total Protein 7.3 g/dL (6.4-8.2)
[2017-09-02 15:22] LABS: Urine Bacteria NONE SEEN /hpf (None Seen); Urine Blood Negative /uL (Negative); Urine WBC 2 /hpf (0 - 3)
[2017-09-02 15:34] LABS: Anion Gap 15 (5-15); Carbon Dioxide 16 mmol/L (21-32)
== END 2017-09-02 14:58 | disposition home or self-care (01) ==
LOC: EDBD 11:44 → ER 11:44
DX: I47.1 Supraventricular tachycardia (principal); I10 Essential (primary) hypertension; Z86.73 Personal history of transient ischemic attack (TIA), and cerebral infarction without residual deficits; E07.89 Other specified disorders of thyroid; E78.5 Hyperlipidemia, unspecified; E11.9 Type 2 diabetes mellitus without complications; Z79.899 Other long term (current) drug therapy; Z95.1 Presence of aortocoronary bypass graft; Z90.49 Acquired absence of other specified parts of digestive tract; Z98.61 Coronary angioplasty status
CPT/HCPCS: 36415; 71046; 80053; 81001; 83735; 84443; 84484; 85025; 93005; 94761; 96360; 99285; J7030; 96361

== ENCOUNTER → 2017-11-12 | Outpatient (CLI) | payer OTHER ==
[2017-11-12 11:46] LABS: BUN/Creatinine Ratio 8.7; Calcium 8.3 mg/dL (8.5-10.1); Potassium 4.8 mmol/L (3.5-5.1)
== END | disposition home or self-care (01) ==
LOC: LAB 10:47
PROVIDERS: ATTEND Internal Medicine Cardiovascular Disease
DX: I47.1 Supraventricular tachycardia (principal)
CPT/HCPCS: 36415; 80048

== ENCOUNTER → 2018-05-26 | Outpatient (CLI) | payer OTHER ==
[2018-05-26 07:33] LABS: Basophils # (auto) 0 uL; Basophils % (auto) 0.4 % (0.0-2.0); Eosinophils # (auto) 0.2 uL; Eosinophils % (auto) 2.8 % (0.0-7.0); Hematocrit 47.2 % (41.0-53.0); Lymphocytes # (auto) 1.6 uL; Lymphocytes % (auto) 19.7 % (10.0-50.0); Mean Corpuscular Hemoglobin 32.2 pg (28.0-32.0); Mean Corpuscular Volume 94.9 fL (80.0-100.0); Monocytes # (auto) 0.6 uL; Monocytes % (auto) 7.9 % (0.0-12.0); Neutrophils # (auto) 5.7 uL; Neutrophils % (auto) 69.2 % (37.0-80.0); Nucleated Red Blood Cells % 0.3 %; Platelet Count (auto) 149 10^3/uL (140-450); Red Blood Cells 4.97 10^6/uL (4.5-5.90); Red Cell Distribution Width 14.3 % (11.8-14.3); White Blood Cell 8.2 10^3/uL (4.4-10.8)
[2018-05-26 09:22] LABS: Potassium 4.3 mmol/L (3.5-5.1)
[2018-05-26 09:29] LABS: Albumin 3.6 g/dL (3.4-5.0); BUN/Creatinine Ratio 12.9; Bilirubin, Total 0.8 mg/dL (0.2-1.0); Calcium 7.9 mg/dL (8.5-10.1); Total Protein 7.5 g/dL (6.4-8.2)
== END | disposition home or self-care (01) ==
LOC: LAB 06:49
PROVIDERS: ATTEND Physician Assistant
DX: Z12.5 Encounter for screening for malignant neoplasm of prostate (principal); E11.22 Type 2 diabetes mellitus with diabetic chronic kidney disease; I12.9 Hypertensive chronic kidney disease with stage 1 through stage 4 chronic kidney disease, or unspecified chronic kidney disease; N18.3 Chronic kidney disease, stage 3 (moderate); I47.1 Supraventricular tachycardia; E78.2 Mixed hyperlipidemia
CPT/HCPCS: 36415; 80053; 80061; 83036; 84153; 85025

== ENCOUNTER → 2018-10-18 | Outpatient (CLI) | payer OTHER, MEDICARE ==
[2018-10-18 12:20] LABS: Albumin 3.7 g/dL (3.4-5.0); BUN/Creatinine Ratio 15.1; Calcium 8.2 mg/dL (8.5-10.1); Total Protein 7.5 g/dL (6.4-8.2)
== END | disposition home or self-care (01) ==
LOC: LAB 10:33
PROVIDERS: ATTEND Physician Assistant
DX: R25.2 Cramp and spasm (principal)
CPT/HCPCS: 36415; 80053; 85379

== ENCOUNTER 2018-11-10 23:50 | Emergency (ER) | payer MEDICARE, OTHER ==
[~2018-11-10] VITALS: Ht 177.8 cm; Wt 113.4 kg
[2018-11-10 23:54] VITALS: BP 144/77
[2018-11-11 00:24] LABS: Basophils # (auto) 0.1 uL; Eosinophils # (auto) 0.3 uL; Eosinophils % (auto) 2.7 % (0.0-7.0); Hematocrit 43.2 % (41.0-53.0); Hemoglobin 14.5 g/dL (13.5-17.5); Lymphocytes # (auto) 2.4 uL; Lymphocytes % (auto) 23.8 % (10.0-50.0); Mean Corpuscular Hemoglobin 31.8 pg (28.0-32.0); Mean Corpuscular Hgb Conc. 33.5 g/dL (32.0-36.0); Mean Corpuscular Volume 95.1 fL (80.0-100.0); Monocytes # (auto) 0.8 uL; Monocytes % (auto) 7.8 % (0.0-12.0); Neutrophils # (auto) 6.7 uL; Neutrophils % (auto) 64.7 % (37.0-80.0); Platelet Count (auto) 152 10^3/uL (140-450); Red Blood Cells 4.54 10^6/uL (4.5-5.90); Red Cell Distribution Width 14.2 % (11.8-14.3); White Blood Cell 10.3 10^3/uL (4.4-10.8)
[2018-11-11 00:39] LABS: Partial Thromboplastin Time 24.5 sec (23.78-33.04); Prothrombin Time 10.7 sec (9.27-12.13)
[2018-11-11 00:45] LABS: Alanine Aminotransferase 37 U/L (16-61); Albumin 3.7 g/dL (3.4-5.0); Anion Gap 5 (5-15); BUN/Creatinine Ratio 13.3; Blood Urea Nitrogen 18 mg/dL (7-18); Calcium 8.3 mg/dL (8.5-10.1); Carbon Dioxide 25 mmol/L (21-32); Chloride 109 mmol/L (98-107); GFR African American 67 mL/min; GFR Non-African American 55 mL/min; Glucose 125 mg/dL (74-106); Magnesium 2.4 mg/dL (1.6-2.6); Potassium 4.5 mmol/L (3.5-5.1); Sodium 139 mmol/L (136-145)
[2018-11-11 00:47] LABS: Amylase 50 U/L (25-115); Lipase 221 U/L (73-393)
[2018-11-11 00:52] LABS: Alkaline Phosphatase 53 U/L (45-117); Aspartate Aminotransferase 25 U/L (15-37); Bilirubin, Total 0.4 mg/dL (0.2-1.0)
== END 2018-11-11 02:34 | disposition left against medical advice (07) ==
LOC: ER 23:51
DX: R07.89 Other chest pain (principal); R10.9 Unspecified abdominal pain; Z53.21 Procedure and treatment not carried out due to patient leaving prior to being seen by health care provider
CPT/HCPCS: 36415; 71045; 74176; 80053; 82150; 83690; 83735; 83880; 84443; 84484; 85025; 85610; 85730; 93005

== ENCOUNTER 2019-01-24 08:40 | Emergency (ER) | payer OTHER ==
[~2019-01-24] VITALS: Ht 177.8 cm; Wt 112.0 kg
[2019-01-24 09:00] VITALS: BP 172/92
[2019-01-24] MEDS ORDERED: HYDROcodone-ACET 5/325MG TAB PO ONE (10:30)
[2019-01-24] MEDS ORDERED: KETOROLAC TROMETH 60MG/2ML VIAL IM ONE (10:30)
== END 2019-01-24 11:18 | disposition home or self-care (01) ==
LOC: ER 08:40
DX: M54.5 Low back pain (principal); I10 Essential (primary) hypertension; E78.5 Hyperlipidemia, unspecified; E11.9 Type 2 diabetes mellitus without complications; Z86.73 Personal history of transient ischemic attack (TIA), and cerebral infarction without residual deficits; Z90.49 Acquired absence of other specified parts of digestive tract; Z98.61 Coronary angioplasty status; Z95.1 Presence of aortocoronary bypass graft
CPT/HCPCS: 72100; 96372; 99283; J1885

== ENCOUNTER → 2019-02-02 | Outpatient (CLI) | payer OTHER ==
[~2019-02-02] VITALS: Ht 177.8 cm; Wt 112.0 kg
[~2019-02-02] MED LIST changes: +ADENOSINE 94 MG in GIVE UN-DILUTED 0 ML IV STA
[2019-02-02 10:17] VITALS: BP 145/77
== END | disposition home or self-care (01) ==
LOC: XY 07:31 → EDUNIT# 07:31
PROVIDERS: ATTEND Internal Medicine
DX: R07.9 Chest pain, unspecified (principal); I10 Essential (primary) hypertension
CPT/HCPCS: 78452; 93017; A9500; J0153

== ENCOUNTER → 2019-02-11 | Outpatient (CLI) | payer OTHER ==
[~2019-02-11] MED LIST changes: -ADENOSINE 94 MG in GIVE UN-DILUTED 0 ML IV STA
== END | disposition home or self-care (01) ==
LOC: XYW 07:27
PROVIDERS: ATTEND Internal Medicine
DX: I05.9 Rheumatic mitral valve disease, unspecified (principal); I10 Essential (primary) hypertension
CPT/HCPCS: 93306

== ENCOUNTER → 2019-09-14 | Outpatient (CLI) | payer MEDICARE, OTHER ==
[~2019-09-14] MED LIST changes: +DILT1CAP77 PO; -DILT240C PO
== END | disposition home or self-care (01) ==
LOC: XYW 07:50
PROVIDERS: ATTEND Internal Medicine
DX: I08.0 Rheumatic disorders of both mitral and aortic valves (principal)
CPT/HCPCS: 93306

== ENCOUNTER → 2020-05-30 | Outpatient (CLI) | payer OTHER ==
[~2020-05-30] MED LIST changes: +ASPI-378 PO; +DILT-29 PO; -DILT1CAP77 PO; +DILT60TA27 PO; -FAM20T PO; +FAMO20TA10 PO; +LISI-648 PO
[2020-05-30 08:14] LABS: Basophils # (auto) 0 10 ^3/uL (0-0.2); Basophils % (auto) 0.6 % (0.0-2.0); Eosinophils # (auto) 0.3 10 ^3/uL (0-0.8); Eosinophils % (auto) 4.8 % (0.0-7.0); Hematocrit 46.9 % (41.0-53.0); Hemoglobin 15.6 g/dL (13.5-17.5); Lymphocytes # (auto) 1.8 10 ^3/uL (0.4-5.4); Lymphocytes % (auto) 26.5 % (10.0-50.0); Mean Corpuscular Hemoglobin 32.1 pg (28.0-32.0); Mean Corpuscular Hgb Conc. 33.2 g/dL (32.0-36.0); Mean Corpuscular Volume 96.9 fL (80.0-100.0); Monocytes # (auto) 0.5 10 ^3/uL (0-1.3); Monocytes % (auto) 7.9 % (0.0-12.0); Neutrophils # (auto) 4.1 10 ^3/uL (1.6-8.6); Neutrophils % (auto) 60.2 % (37.0-80.0); Nucleated Red Blood Cells % 0.1 %; Platelet Count (auto) 133 10^3/uL (140-450); Red Blood Cells 4.84 10^6/uL (4.5-5.90); Red Cell Distribution Width 13.8 % (11.8-14.3); White Blood Cell 6.8 10^3/uL (4.4-10.8)
[2020-05-30 09:09] LABS: Potassium 4.3 mmol/L (3.5-5.1)
[2020-05-30 09:18] LABS: Albumin 3.7 g/dL (3.4-5.0); BUN/Creatinine Ratio 9.3; Bilirubin, Total 0.7 mg/dL (0.2-1.0); Calcium 8.6 mg/dL (8.5-10.1)
== END | disposition home or self-care (01) ==
LOC: LAB 07:08
PROVIDERS: ATTEND Physician Assistant
DX: Z00.00 Encounter for general adult medical examination without abnormal findings (principal); I10 Essential (primary) hypertension; N40.0 Benign prostatic hyperplasia without lower urinary tract symptoms; I47.1 Supraventricular tachycardia; E66.01 Morbid (severe) obesity due to excess calories; E78.5 Hyperlipidemia, unspecified
CPT/HCPCS: 36415; 80053; 80061; 82274; 84153; 85025

== ENCOUNTER → 2020-11-19 | Outpatient (CLI) | payer OTHER ==
[~2020-11-19] MED LIST changes: +DILT60TA PO; -DILT60TA27 PO
[2020-11-19 12:22] LABS: Albumin 3.7 g/dL (3.4-5.0); Calcium 8.7 mg/dL (8.5-10.1); Magnesium 2.3 mg/dL (1.6-2.6); Potassium 4.4 mmol/L (3.5-5.1)
[2020-11-19 12:25] LABS: BUN/Creatinine Ratio 13.8; Bilirubin, Total 0.8 mg/dL (0.2-1.0); Total Protein 7.1 g/dL (6.4-8.2)
[2020-11-19 16:39] LABS: Free T4 (Free Thyroxine) 0.87 ng/dL (0.89-1.76)
[2020-11-19 16:40] LABS: T3 Total 1.12 ng/mL (0.60-1.81)
== END | disposition home or self-care (01) ==
LOC: LAB 08:56
PROVIDERS: ATTEND Physician Assistant
DX: I10 Essential (primary) hypertension (principal); E56.9 Vitamin deficiency, unspecified; E07.9 Disorder of thyroid, unspecified; R73.03 Prediabetes
CPT/HCPCS: 36415; 80053; 83735; 84439; 84443; 84480

== ENCOUNTER → 2021-02-21 | Outpatient (CLI) | payer OTHER ==
[~2021-02-21] MED LIST changes: -LISI-648 PO; +LISI-716 PO
[2021-02-21 07:06] LABS: Basophils # (auto) 0.1 10 ^3/uL (0-0.2); Basophils % (auto) 0.7 % (0.0-2.0); Eosinophils # (auto) 0.4 10 ^3/uL (0-0.8); Eosinophils % (auto) 4.9 % (0.0-7.0); Hematocrit 43.2 % (41.0-53.0); Hemoglobin 15.1 g/dL (13.5-17.5); Lymphocytes # (auto) 1.7 10 ^3/uL (0.4-5.4); Lymphocytes % (auto) 19.8 % (10.0-50.0); Mean Corpuscular Hemoglobin 33.3 pg (28.0-32.0); Mean Corpuscular Volume 95.1 fL (80.0-100.0); Monocytes # (auto) 0.7 10 ^3/uL (0-1.3); Monocytes % (auto) 7.9 % (0.0-12.0); Neutrophils # (auto) 5.6 10 ^3/uL (1.6-8.6); Neutrophils % (auto) 66.7 % (37.0-80.0); Nucleated Red Blood Cells % 0.1 %; Platelet Count (auto) 128 10^3/uL (140-450); Red Blood Cells 4.54 10^6/uL (4.5-5.90); Red Cell Distribution Width 13.7 % (11.8-14.3); White Blood Cell 8.4 10^3/uL (4.4-10.8)
[2021-02-21 07:27] LABS: Albumin 3.6 g/dL (3.4-5.0); Potassium 4.7 mmol/L (3.5-5.1)
[2021-02-21 07:34] LABS: BUN/Creatinine Ratio 17.1; Bilirubin, Total 0.5 mg/dL (0.2-1.0); Calcium 8.1 mg/dL (8.5-10.1); Total Protein 7.2 g/dL (6.4-8.2)
== END | disposition home or self-care (01) ==
LOC: LAB 06:49
PROVIDERS: ATTEND Nurse Practitioner Family
DX: E11.69 Type 2 diabetes mellitus with other specified complication (principal); I10 Essential (primary) hypertension; I70.0 Atherosclerosis of aorta; I77.1 Stricture of artery
CPT/HCPCS: 36415; 80053; 80061; 82043; 82274; 83036; 84443; 85025; 85049

== ENCOUNTER → 2021-05-31 | Outpatient (CLI) | payer OTHER, MEDICARE ==
[~2021-05-31] MED LIST changes: -ASPI-231 PO; +ASPI1TAB20 PO; +DILT360C27 PO; +METF-370 PO; +TIZA4CAP PO
[2021-05-31 13:33] LABS: Basophils # (auto) 0.1 10 ^3/uL (0-0.2); Basophils % (auto) 0.7 % (0.0-2.0); Eosinophils # (auto) 0.2 10 ^3/uL (0-0.8); Eosinophils % (auto) 2.1 % (0.0-7.0); Hematocrit 46.9 % (41.0-53.0); Hemoglobin 15.8 g/dL (13.5-17.5); Lymphocytes # (auto) 1.6 10 ^3/uL (0.4-5.4); Lymphocytes % (auto) 19.4 % (10.0-50.0); Mean Corpuscular Hemoglobin 32.4 pg (28.0-32.0); Mean Corpuscular Hgb Conc. 33.8 g/dL (32.0-36.0); Mean Corpuscular Volume 95.9 fL (80.0-100.0); Monocytes # (auto) 0.7 10 ^3/uL (0-1.3); Monocytes % (auto) 7.9 % (0.0-12.0); Neutrophils # (auto) 5.8 10 ^3/uL (1.6-8.6); Neutrophils % (auto) 69.9 % (37.0-80.0); Nucleated Red Blood Cells % 0.1 %; Red Blood Cells 4.89 10^6/uL (4.5-5.90); White Blood Cell 8.2 10^3/uL (4.4-10.8)
[2021-05-31 13:40] LABS: INR 1.1 (0.9-1.15); Partial Thromboplastin Time 24.6 sec (23.6-33.0)
[2021-05-31 14:50] LABS: Potassium 4.7 mmol/L (3.5-5.1)
[2021-05-31 14:55] LABS: Albumin 3.8 g/dL (3.4-5.0); BUN/Creatinine Ratio 12.9; Bilirubin, Total 0.7 mg/dL (0.2-1.0); Calcium 9.4 mg/dL (8.5-10.1); Total Protein 7.3 g/dL (6.4-8.2)
== END | disposition home or self-care (01) ==
LOC: LAB 13:14
PROVIDERS: ATTEND Internal Medicine
DX: Z01.812 Encounter for preprocedural laboratory examination (principal)
CPT/HCPCS: 36415; 80053; 85025; 85610; 85730

== ENCOUNTER 2021-06-03 06:46 | Day surgery (SDC) | payer OTHER ==
[~2021-06-03] VITALS: Ht 177.8 cm; Wt 116.6 kg
[~2021-06-03 06:46] MED LIST changes: -ASPI-498 OR; -ASPI1TAB20 PO; -ATOR20TA PO; -ATOR20TA50 PO; -DILT-29 PO; -DILT60TA PO; -FAMO20TA10 PO; -LISI-716 PO; -NITR0.4S29 SL; -NOR10T PO
[2021-06-03] MEDS ORDERED: LIDOCAINE 2%HCL (LOCAL ANESTH.) INJ 20ML MDV ONE (08:59)
[2021-06-03] MEDS ORDERED: IODIXANOL 320MG/ML 100ML BTL IV ONE ×3 (08:59→10:09)
[2021-06-03] MEDS ORDERED: ANGIOMAX 250 MG VIAL IV ONE ×2 (09:05→10:42)
[2021-06-03] MEDS ORDERED: HEPARIN SODIUM (PORCINE) 5000 UNITS/ML 1ML VIAL ONE (09:05)
[2021-06-03] MEDS ORDERED: fentaNYL CITRATE 100 MCG/2 ML VL ONE ×2 (09:05→10:20)
[2021-06-03] MEDS ORDERED: SODIUM CHL 0.9% 50 ML ONE ×2 (09:05→10:42)
[2021-06-03] MEDS ORDERED: VERAPAMIL 2.5MG/ML INJ 2ML VIAL IV ONE (09:05)
[2021-06-03] MEDS ORDERED: MIDAZOLAM HCL 2MG/2ML 2ml VIAL (1mg/ml) ONE ×3 (09:05→10:31)
[2021-06-03] MEDS ORDERED: HYDROmorphone HCL 2 MG/ML VL ONE (10:31)
[2021-06-03] MEDS ORDERED: ATROPINE SULF 1 MG/10ml SYR ONE (10:35)
[2021-06-03] MEDS ORDERED: ASPirin 325 MG TAB ONE (10:49)
[2021-06-03] MEDS ORDERED: CLOPIDOGREL 300 MG TAB ONE (10:49)
[2021-06-03] MEDS ORDERED: ONDANSETRON HCL 4 MG/2 ML VIAL ONE (13:05)
[2021-06-04] MEDS ORDERED: CLOPIDOGREL BISULFATE 75 MG TAB PO SCH (10:00)
== END 2021-06-03 14:35 | disposition home or self-care (01) ==
LOC: CATH 06:46
PROVIDERS: ATTEND Internal Medicine
DX: R94.39 Abnormal result of other cardiovascular function study (principal); I25.119 Atherosclerotic heart disease of native coronary artery with unspecified angina pectoris; Z20.822 Contact with and (suspected) exposure to COVID-19; Z98.890 Other specified postprocedural states; Z87.891 Personal history of nicotine dependence; Z80.0 Family history of malignant neoplasm of digestive organs; Z82.49 Family history of ischemic heart disease and other diseases of the circulatory system; Z83.3 Family history of diabetes mellitus
CPT/HCPCS: 92933; 93458; 93571; C1724; C1725; C1769; C1887; C1894; J0583; J1170; J1644; J2250; J2405; J3010; J7030; Q9967; U0003; 99152; 99153

== ENCOUNTER 2021-06-20 14:59 | Inpatient (IN) | payer OTHER ==
[~2021-06-20] VITALS: Ht 177.8 cm; Wt 114.5 kg
[2021-06-20 15:59] LABS: Basophils # (auto) 0.1 10 ^3/uL (0-0.2); Basophils % (auto) 0.5 % (0.0-2.0); Eosinophils # (auto) 0 10 ^3/uL (0-0.8); Eosinophils % (auto) 0.1 % (0.0-7.0); Hematocrit 39.8 % (41.0-53.0); Hemoglobin 12.9 g/dL (13.5-17.5); Lymphocytes # (auto) 0.9 10 ^3/uL (0.4-5.4); Lymphocytes % (auto) 7.8 % (10.0-50.0); Mean Corpuscular Hemoglobin 31.5 pg (28.0-32.0); Mean Corpuscular Hgb Conc. 32.4 g/dL (32.0-36.0); Mean Corpuscular Volume 97.3 fL (80.0-100.0); Monocytes # (auto) 0.6 10 ^3/uL (0-1.3); Monocytes % (auto) 5.2 % (0.0-12.0); Neutrophils # (auto) 10.5 10 ^3/uL (1.6-8.6); Neutrophils % (auto) 86.4 % (37.0-80.0); Red Blood Cells 4.09 10^6/uL (4.5-5.90); Red Cell Distribution Width 13.5 % (11.8-14.3); White Blood Cell 12.1 10^3/uL (4.4-10.8)
[2021-06-20 16:16] LABS: Albumin 3.1 g/dL (3.4-5.0); INR 1.14 (0.9-1.15); Partial Thromboplastin Time 21.6 sec (23.6-33.0); Potassium 5.1 mmol/L (3.5-5.1)
[2021-06-20 16:22] LABS: BUN/Creatinine Ratio 33.6; Bilirubin, Total 0.7 mg/dL (0.2-1.0); Total Protein 6.5 g/dL (6.4-8.2)
[2021-06-20] MEDS ORDERED: ONDANSETRON HCL 4 MG/2 ML VIAL IV ONE ×2 (16:45→21:15)
[2021-06-20] MEDS ORDERED: ONDANSETRON HCL 4 MG/2 ML VIAL ONE (16:51)
[2021-06-20 18:50] LABS: Urine Bacteria NONE SEEN /hpf (None Seen); Urine Blood Negative /uL (Negative); Urine Specific Gravity 1.026 (1.001-1.035); Urine WBC 2 /hpf (0 - 3)
[2021-06-21] MEDS ORDERED: MORPHINE SULFATE INJECTION 2 MG/ML SYRG IV PRN (03:45)
[2021-06-21] MEDS ORDERED: DOCUSATE SOD 100 MG CAP PO PRN (03:45)
[2021-06-21] MEDS ORDERED: NITROGLYCERIN 0.4 MG SL TAB SL PRN (03:45)
[2021-06-21] MEDS ORDERED: DEXTROSE (50%) 50ML SYRG IV PRN (03:45)
[2021-06-21] MEDS ORDERED: ACETAMINOPHEN 325 MG TAB PO PRN (03:45)
[2021-06-21] MEDS: SODIUM CHLOR 0.9% PF (SALINE LOCK) 10ML VIAL/SYR IV SCH ×3 (06:00→21:47)
[2021-06-21 06:11] LABS: Basophils # (auto) 0.1 10 ^3/uL (0-0.2); Basophils % (auto) 0.6 % (0.0-2.0); Eosinophils # (auto) 0 10 ^3/uL (0-0.8); Eosinophils % (auto) 0.3 % (0.0-7.0); Hemoglobin 10.7 g/dL (13.5-17.5); Lymphocytes # (auto) 1.9 10 ^3/uL (0.4-5.4); Lymphocytes % (auto) 12.6 % (10.0-50.0); Mean Corpuscular Hemoglobin 33.6 pg (28.0-32.0); Mean Corpuscular Hgb Conc. 34.5 g/dL (32.0-36.0); Mean Corpuscular Volume 97.4 fL (80.0-100.0); Monocytes # (auto) 1.5 10 ^3/uL (0-1.3); Monocytes % (auto) 9.6 % (0.0-12.0); Neutrophils # (auto) 11.7 10 ^3/uL (1.6-8.6); Neutrophils % (auto) 76.9 % (37.0-80.0); Red Blood Cells 3.18 10^6/uL (4.5-5.90); Red Cell Distribution Width 13.8 % (11.8-14.3); White Blood Cell 15.2 10^3/uL (4.4-10.8)
[2021-06-21 06:20] LABS: Cholesterol 119 mg/dL (< 200); Triglycerides 274 mg/dL (< 150)
[2021-06-21 06:21] LABS: Calcium 7.6 mg/dL (8.5-10.1); Potassium 4.1 mmol/L (3.5-5.1)
[2021-06-21 06:23] LABS: HDL Cholesterol 25 mg/dL (40-59); LDL Cholesterol 56 mg/dL (< 100)
[2021-06-21 06:27] LABS: Albumin 2.5 g/dL (3.4-5.0); BUN/Creatinine Ratio 42.7; Bilirubin, Total 0.3 mg/dL (0.2-1.0); Total Protein 5.3 g/dL (6.4-8.2)
[2021-06-21] MEDS: ACCU-CHEK COMFORT CURVE STRIP VI SCH ×4 (06:44→21:47)
[2021-06-21] MEDS: InsuLIN REG 1unit/0.01ml Soln (100units/ml) SC SCH ×4 (06:44→22:12)
[2021-06-21] MEDS: HYDROcodone-ACET 5/325MG TAB PO PRN ×3 (07:56→19:48)
[2021-06-21] MEDS: cefTRIAXone 1GM/50ML D5W 50 ML IV SCH (09:38)
[2021-06-21] MEDS ORDERED: FAMOTIDINE (10MG/ML) 2ML VL IV SCH (10:00)
[2021-06-21] MEDS ORDERED: ASPirin 81 mg TAB PO SCH (10:00)
[2021-06-21] MEDS ORDERED: CLOPIDOGREL BISULFATE 75 MG TAB PO ONE (10:30)
[2021-06-21] MEDS: ONDANSETRON HCL 4 MG/2 ML VIAL IV PRN (12:53)
[2021-06-21] MEDS: metroNIDAZOLE 500MG/100ML 100 ML IV SCH ×2 (15:06→21:46)
[2021-06-21 20:40] VITALS: BP 136/70
[2021-06-21 21:21] VITALS: BP 136/70
[2021-06-21] MEDS: PANTOPRAZOLE 40 MG/10 ML VIAL INJ IV SCH (21:46)
[2021-06-21] MEDS: FLORASTOR (S. BOULARDII) 250 MG CAP PO SCH (21:47)
[2021-06-22 05:30] VITALS: BP 124/61
[2021-06-22 05:35] LABS: Basophils # (auto) 0.1 10 ^3/uL (0-0.2); Basophils % (auto) 0.5 % (0.0-2.0); Eosinophils # (auto) 0.3 10 ^3/uL (0-0.8); Eosinophils % (auto) 3.2 % (0.0-7.0); Hematocrit 27.7 % (41.0-53.0); Hemoglobin 9.4 g/dL (13.5-17.5); Lymphocytes % (auto) 20.4 % (10.0-50.0); Mean Corpuscular Hemoglobin 32.9 pg (28.0-32.0); Mean Corpuscular Hgb Conc. 33.8 g/dL (32.0-36.0); Mean Corpuscular Volume 97.1 fL (80.0-100.0); Monocytes # (auto) 0.6 10 ^3/uL (0-1.3); Monocytes % (auto) 5.9 % (0.0-12.0); Neutrophils # (auto) 6.8 10 ^3/uL (1.6-8.6); Nucleated Red Blood Cells % 0.1 %; Red Blood Cells 2.85 10^6/uL (4.5-5.90); Red Cell Distribution Width 13.9 % (11.8-14.3); White Blood Cell 9.7 10^3/uL (4.4-10.8)
[2021-06-22] MEDS: SODIUM CHLOR 0.9% PF (SALINE LOCK) 10ML VIAL/SYR IV SCH ×3 (05:45→21:24)
[2021-06-22] MEDS: metroNIDAZOLE 500MG/100ML 100 ML IV SCH ×3 (05:45→21:23)
[2021-06-22 06:04] LABS: Albumin 2.7 g/dL (3.4-5.0); Calcium 7.7 mg/dL (8.5-10.1); Magnesium 2.4 mg/dL (1.6-2.6); Potassium 4.7 mmol/L (3.5-5.1)
[2021-06-22 06:06] LABS: BUN/Creatinine Ratio 28.4
[2021-06-22 06:09] LABS: Bilirubin, Total 0.4 mg/dL (0.2-1.0)
[2021-06-22] MEDS: HYDROcodone-ACET 5/325MG TAB PO PRN ×4 (06:34→23:11)
[2021-06-22] MEDS: InsuLIN REG 1unit/0.01ml Soln (100units/ml) SC SCH ×4 (06:35→21:25)
[2021-06-22] MEDS: ACCU-CHEK COMFORT CURVE STRIP VI SCH ×4 (06:35→21:24)
[2021-06-22 08:27] VITALS: BP 147/72
[2021-06-22] MEDS: PANTOPRAZOLE 40 MG/10 ML VIAL INJ IV SCH ×2 (09:10→21:24)
[2021-06-22] MEDS: FLORASTOR (S. BOULARDII) 250 MG CAP PO SCH ×2 (09:10→21:24)
[2021-06-22] MEDS: cefTRIAXone 1GM/50ML D5W 50 ML IV SCH (09:10)
[2021-06-22 12:52] VITALS: BP 132/69
[2021-06-22 17:04] VITALS: BP 131/69
[2021-06-22] MEDS: ONDANSETRON HCL 4 MG/2 ML VIAL IV PRN (18:48)
[2021-06-22 22:00] VITALS: BP 119/57
[2021-06-22] MEDS ORDERED: dilTIAZem 25 MG/5 ML VIAL IV ONE (22:15)
[2021-06-22] MEDS ORDERED: dilTIAZem HCL 180MG ER CAP PO ONE (23:30)
[2021-06-23] MEDS: HYDROcodone-ACET 5/325MG TAB PO PRN ×2 (03:04→21:27)
[2021-06-23 04:58] VITALS: BP 108/53
[2021-06-23] MEDS: metroNIDAZOLE 500MG/100ML 100 ML IV SCH ×3 (06:02→21:27)
[2021-06-23] MEDS: SODIUM CHLOR 0.9% PF (SALINE LOCK) 10ML VIAL/SYR IV SCH ×3 (06:02→21:26)
[2021-06-23] MEDS: ACCU-CHEK COMFORT CURVE STRIP VI SCH ×4 (06:41→21:26)
[2021-06-23] MEDS: InsuLIN REG 1unit/0.01ml Soln (100units/ml) SC SCH ×4 (06:42→21:26)
[2021-06-23] MEDS: cefTRIAXone 1GM/50ML D5W 50 ML IV SCH (08:22)
[2021-06-23 08:25] VITALS: BP 112/60
[2021-06-23 08:45] LABS: Basophils # (auto) 0.1 10 ^3/uL (0-0.2); Basophils % (auto) 0.9 % (0.0-2.0); Eosinophils # (auto) 0.4 10 ^3/uL (0-0.8); Eosinophils % (auto) 5.1 % (0.0-7.0); Hematocrit 26.5 % (41.0-53.0); Lymphocytes # (auto) 1.5 10 ^3/uL (0.4-5.4); Lymphocytes % (auto) 19.8 % (10.0-50.0); Mean Corpuscular Hemoglobin 33.1 pg (28.0-32.0); Mean Corpuscular Hgb Conc. 33.8 g/dL (32.0-36.0); Mean Corpuscular Volume 97.9 fL (80.0-100.0); Monocytes # (auto) 0.5 10 ^3/uL (0-1.3); Monocytes % (auto) 6.5 % (0.0-12.0); Neutrophils # (auto) 5.1 10 ^3/uL (1.6-8.6); Neutrophils % (auto) 67.7 % (37.0-80.0); Nucleated Red Blood Cells % 0.2 %; Red Blood Cells 2.71 10^6/uL (4.5-5.90); Red Cell Distribution Width 13.8 % (11.8-14.3); White Blood Cell 7.6 10^3/uL (4.4-10.8)
[2021-06-23 08:52] LABS: Calcium 7.6 mg/dL (8.5-10.1); Potassium 4.3 mmol/L (3.5-5.1)
[2021-06-23 08:55] LABS: BUN/Creatinine Ratio 14.7
[2021-06-23 08:59] LABS: INR 1.14 (0.9-1.15)
[2021-06-23] MEDS: FLORASTOR (S. BOULARDII) 250 MG CAP PO SCH ×2 (10:08→21:26)
[2021-06-23] MEDS: dilTIAZem 120MG ER CAP PO SCH (10:08)
[2021-06-23] MEDS: PANTOPRAZOLE 40 MG/10 ML VIAL INJ IV SCH ×2 (10:08→21:27)
[2021-06-23] MEDS ORDERED: METOCLOPRAMIDE HCL 5MG/ml INJ 2ml VIAL IV ONE (10:30)
[2021-06-23 12:41] VITALS: BP 130/63
[2021-06-23 17:05] VITALS: BP 129/70
[2021-06-23 22:00] VITALS: BP 134/60
[2021-06-24 05:00] VITALS: BP 149/66
[2021-06-24 05:34] LABS: Basophils # (auto) 0.1 10 ^3/uL (0-0.2); Basophils % (auto) 0.7 % (0.0-2.0); Eosinophils # (auto) 0.4 10 ^3/uL (0-0.8); Eosinophils % (auto) 4.8 % (0.0-7.0); Hematocrit 28.6 % (41.0-53.0); Hemoglobin 9.7 g/dL (13.5-17.5); Lymphocytes # (auto) 1.7 10 ^3/uL (0.4-5.4); Lymphocytes % (auto) 20.1 % (10.0-50.0); Mean Corpuscular Hemoglobin 33.1 pg (28.0-32.0); Mean Corpuscular Hgb Conc. 33.7 g/dL (32.0-36.0); Monocytes # (auto) 0.6 10 ^3/uL (0-1.3); Monocytes % (auto) 6.7 % (0.0-12.0); Neutrophils # (auto) 5.7 10 ^3/uL (1.6-8.6); Neutrophils % (auto) 67.7 % (37.0-80.0); Nucleated Red Blood Cells % 0.5 %; Red Blood Cells 2.92 10^6/uL (4.5-5.90); Red Cell Distribution Width 13.9 % (11.8-14.3); White Blood Cell 8.4 10^3/uL (4.4-10.8)
[2021-06-24 05:49] LABS: BUN/Creatinine Ratio 9.6; Calcium 7.6 mg/dL (8.5-10.1); Magnesium 2.5 mg/dL (1.6-2.6)
[2021-06-24] MEDS: ACCU-CHEK COMFORT CURVE STRIP VI SCH ×4 (06:07→21:35)
[2021-06-24] MEDS: InsuLIN REG 1unit/0.01ml Soln (100units/ml) SC SCH ×4 (06:07→21:41)
[2021-06-24] MEDS: SODIUM CHLOR 0.9% PF (SALINE LOCK) 10ML VIAL/SYR IV SCH ×3 (07:00→21:53)
[2021-06-24] MEDS: metroNIDAZOLE 500MG/100ML 100 ML IV SCH ×3 (07:01→21:53)
[2021-06-24 07:30] VITALS: BP 150/69
[2021-06-24] MEDS: cefTRIAXone 1GM/50ML D5W 50 ML IV SCH (08:36)
[2021-06-24 09:00] VITALS: BP 150/69
[2021-06-24] MEDS: PANTOPRAZOLE 40 MG/10 ML VIAL INJ IV SCH ×2 (09:08→21:53)
[2021-06-24] MEDS: FLORASTOR (S. BOULARDII) 250 MG CAP PO SCH ×2 (09:08→21:42)
[2021-06-24] MEDS: dilTIAZem 120MG ER CAP PO SCH (09:08)
[2021-06-24 13:00] VITALS: BP 132/62
[2021-06-24 16:54] VITALS: BP 116/61
[2021-06-24 22:00] VITALS: BP 137/64
[2021-06-24] MEDS ORDERED: ATORVASTATIN 20 MG TAB PO SCH (22:00)
[2021-06-25] MEDS: HYDROcodone-ACET 5/325MG TAB PO PRN (00:26)
[2021-06-25 05:16] LABS: Basophils # (auto) 0 10 ^3/uL (0-0.2); Basophils % (auto) 0.5 % (0.0-2.0); Eosinophils # (auto) 0.4 10 ^3/uL (0-0.8); Eosinophils % (auto) 4.1 % (0.0-7.0); Hemoglobin 9.5 g/dL (13.5-17.5); Lymphocytes # (auto) 1.6 10 ^3/uL (0.4-5.4); Lymphocytes % (auto) 17.9 % (10.0-50.0); Mean Corpuscular Hemoglobin 33.4 pg (28.0-32.0); Mean Corpuscular Hgb Conc. 34.1 g/dL (32.0-36.0); Mean Corpuscular Volume 97.9 fL (80.0-100.0); Monocytes # (auto) 0.6 10 ^3/uL (0-1.3); Monocytes % (auto) 6.7 % (0.0-12.0); Neutrophils # (auto) 6.5 10 ^3/uL (1.6-8.6); Neutrophils % (auto) 70.8 % (37.0-80.0); Nucleated Red Blood Cells % 0.3 %; Red Blood Cells 2.86 10^6/uL (4.5-5.90); Red Cell Distribution Width 13.9 % (11.8-14.3); White Blood Cell 9.2 10^3/uL (4.4-10.8)
[2021-06-25] MEDS: SODIUM CHLOR 0.9% PF (SALINE LOCK) 10ML VIAL/SYR IV SCH ×2 (05:26→12:56)
[2021-06-25] MEDS: ACCU-CHEK COMFORT CURVE STRIP VI SCH ×3 (05:44→17:00)
[2021-06-25] MEDS: InsuLIN REG 1unit/0.01ml Soln (100units/ml) SC SCH ×3 (05:53→17:00)
[2021-06-25] MEDS: metroNIDAZOLE 500MG/100ML 100 ML IV SCH (06:08)
[2021-06-25] MEDS: cefTRIAXone 1GM/50ML D5W 50 ML IV SCH (08:24)
[2021-06-25 08:25] VITALS: BP 139/69
[2021-06-25 09:00] VITALS: BP 134/69
[2021-06-25] MEDS ORDERED: LIDOCAINE VISCOUS 2% 15ML UD ONE (09:13)
[2021-06-25] MEDS ORDERED: SODIUM CHLORIDE LOCK 10 ML ONE (09:13)
[2021-06-25] MEDS ORDERED: EPINEPHrine HCL 1 MG/10 ML SYRG ONE (09:14)
[2021-06-25] MEDS: PANTOPRAZOLE 40 MG/10 ML VIAL INJ IV SCH (09:56)
[2021-06-25] MEDS: diphenhdrAMINE HCL 50 MG/1 ML VL ONE ×2 (11:23→11:26)
[2021-06-25] MEDS: MIDAZOLAM HCL 5 MG/ML-1ML VIAL ONE ×2 (11:23→11:26)
[2021-06-25] MEDS: fentaNYL CITRATE 100 MCG/2 ML VL ONE ×2 (11:23→11:26)
[2021-06-25] MEDS: FLORASTOR (S. BOULARDII) 250 MG CAP PO SCH (12:51)
[2021-06-25] MEDS: dilTIAZem 120MG ER CAP PO SCH (12:52)
[2021-06-25 15:22] VITALS: BP 132/87
[2021-06-25] MEDS ORDERED: CLOPIDOGREL BISULFATE 75 MG TAB PO ONE (15:30)
[2021-06-25 17:00] VITALS: BP 137/82
[2021-06-25] MEDS ORDERED: SUCRALFATE 1 GM/10 ML ORAL SUSP PO SCH (17:00)
[2021-06-26] MEDS ORDERED: CLOPIDOGREL BISULFATE 75 MG TAB PO SCH (10:00)
== END 2021-06-25 17:35 | disposition home or self-care (01) | DRG 378 ==
LOC: EDBD 14:59 → ER 14:59 → OVERFLOW 06-21 03:38 → CENTRAL 06-21 20:34 → TELE-CENTR 06-22 23:14
PROVIDERS: ADMIT Nurse Practitioner Family; ATTEND Internal Medicine
PROC: 0DB88ZX Excision of Small Intestine, Via Natural or Artificial Opening Endoscopic, Diagnostic (ICD-10-PCS; 2021-06-25)
PROC: 0DB68ZX Excision of Stomach, Via Natural or Artificial Opening Endoscopic, Diagnostic (ICD-10-PCS; 2021-06-25)
PROC: 0DB38ZX Excision of Lower Esophagus, Via Natural or Artificial Opening Endoscopic, Diagnostic (ICD-10-PCS; principal; 2021-06-25 11:20)
DX: K25.4 Chronic or unspecified gastric ulcer with hemorrhage (principal); I42.9 Cardiomyopathy, unspecified; R55 Syncope and collapse; D72.829 Elevated white blood cell count, unspecified; E11.65 Type 2 diabetes mellitus with hyperglycemia; E88.09 Other disorders of plasma-protein metabolism, not elsewhere classified; D64.9 Anemia, unspecified; E78.5 Hyperlipidemia, unspecified; E89.0 Postprocedural hypothyroidism; I10 Essential (primary) hypertension; I25.10 Atherosclerotic heart disease of native coronary artery without angina pectoris; K44.9 Diaphragmatic hernia without obstruction or gangrene; W18.39XA Other fall on same level, initial encounter; Y93.01 Activity, walking, marching and hiking; K21.9 Gastro-esophageal reflux disease without esophagitis; E66.01 Morbid (severe) obesity due to excess calories; J44.9 Chronic obstructive pulmonary disease, unspecified; K29.81 Duodenitis with bleeding; N28.9 Disorder of kidney and ureter, unspecified; Z20.822 Contact with and (suspected) exposure to COVID-19; Z95.5 Presence of coronary angioplasty implant and graft; Z83.3 Family history of diabetes mellitus; Z95.1 Presence of aortocoronary bypass graft; Z90.49 Acquired absence of other specified parts of digestive tract; Z79.02 Long term (current) use of antithrombotics/antiplatelets; Z79.82 Long term (current) use of aspirin; Y92.091 Bathroom in other non-institutional residence as the place of occurrence of the external cause; Y99.8 Other external cause status; Z68.36 Body mass index [BMI] 36.0-36.9, adult
CPT/HCPCS: 36415; 43239; 70450; 71045; 73080; 80048; 80053; 80061; 81001; 82270; 82962; 83735; 83880; 84484; 85025; 85610; 85730; 86850; 86900; 86901; 87426; 93005; 96374; 96375; C9113; G0378; J0696; J1815; J2250; J2405; J3490

== ENCOUNTER → 2021-09-12 | Outpatient (CLI) | payer OTHER | END | disposition home or self-care (01) | LOC: XY 08:33 | PROVIDERS: ATTEND Internal Medicine | DX: I73.9 Peripheral vascular disease, unspecified (principal) | CPT/HCPCS: 93925 ==

== ENCOUNTER → 2022-04-07 | Outpatient (CLI) | payer OTHER ==
[2022-04-07 10:21] LABS: Potassium 4.6 mmol/L (3.5-5.1)
[2022-04-07 10:23] LABS: BUN/Creatinine Ratio 10.6; Calcium 8.2 mg/dL (8.5-10.1)
== END | disposition home or self-care (01) ==
LOC: LAB 09:26
PROVIDERS: ATTEND Nurse Practitioner Family
DX: R07.89 Other chest pain (principal); I10 Essential (primary) hypertension
CPT/HCPCS: 36415; 80048; 85379

== ENCOUNTER → 2022-10-28 | Outpatient (CLI) | payer OTHER | END | disposition home or self-care (01) | LOC: XYW 08:30 | PROVIDERS: ATTEND Internal Medicine | DX: I70.8 Atherosclerosis of other arteries (principal) | CPT/HCPCS: 93925 ==

== ENCOUNTER → 2022-11-11 | Outpatient (CLI) | payer OTHER ==
[~2022-11-11] VITALS: Ht 177.8 cm; Wt 110.2 kg
[~2022-11-11] MED LIST changes: +ADENOSINE 93 MG in GIVE UN-DILUTED 0 ML IV STA
[2022-11-11 08:50] VITALS: BP 141/66
== END | disposition home or self-care (01) ==
LOC: XYW 07:48
PROVIDERS: ATTEND Internal Medicine
DX: I25.10 Atherosclerotic heart disease of native coronary artery without angina pectoris (principal); I10 Essential (primary) hypertension; E78.5 Hyperlipidemia, unspecified; M79.604 Pain in right leg; M79.605 Pain in left leg
CPT/HCPCS: 78452; 93017; A9500; J0153

== ENCOUNTER 2022-12-06 19:38 | Inpatient (IN) | payer OTHER ==
[~2022-12-06] VITALS: Ht 175.3 cm; Wt 220.0 kg
[~2022-12-06 19:38] MED LIST changes: -ADENOSINE 93 MG in GIVE UN-DILUTED 0 ML IV STA
[2022-12-06] MEDS ORDERED: ACETAMINOPHEN 500 MG TAB PO ONE (21:15)
[2022-12-06 21:37] LABS: Basophils # (auto) 0.1 10 ^3/uL (0-0.2); Basophils % (auto) 0.6 % (0.0-2.0); Eosinophils # (auto) 0.1 10 ^3/uL (0-0.8); Eosinophils % (auto) 1.5 % (0.0-7.0); Hematocrit 42.9 % (41.0-53.0); Hemoglobin 14.4 g/dL (13.5-17.5); Lymphocytes # (auto) 1.8 10 ^3/uL (0.4-5.4); Lymphocytes % (auto) 20.1 % (10.0-50.0); Mean Corpuscular Hemoglobin 31.9 pg (28.0-32.0); Mean Corpuscular Hgb Conc. 33.7 g/dL (32.0-36.0); Mean Corpuscular Volume 94.6 fL (80.0-100.0); Monocytes # (auto) 0.7 10 ^3/uL (0-1.3); Monocytes % (auto) 7.5 % (0.0-12.0); Neutrophils # (auto) 6.3 10 ^3/uL (1.6-8.6); Neutrophils % (auto) 70.3 % (37.0-80.0); Red Blood Cells 4.53 10^6/uL (4.5-5.90); Red Cell Distribution Width 13.5 % (11.8-14.3); White Blood Cell 8.9 10^3/uL (4.4-10.8)
[2022-12-06 21:55] LABS: Albumin 3.5 g/dL (3.4-5.0); Calcium 8.5 mg/dL (8.5-10.1); Potassium 4.4 mmol/L (3.5-5.1)
[2022-12-06 21:57] LABS: INR 1.1 (0.9-1.15)
[2022-12-06 21:59] LABS: BUN/Creatinine Ratio 16.4 (10.0-20.0); Bilirubin, Total 0.6 mg/dL (0.2-1.0); Total Protein 6.8 g/dL (6.4-8.2)
[2022-12-07] MEDS ORDERED: DOCUSATE SOD 100 MG CAP PO PRN (01:00)
[2022-12-07] MEDS ORDERED: ONDANSETRON HCL 4 MG/2 ML VIAL IV PRN (01:00)
[2022-12-07] MEDS ORDERED: HYDROcodone-ACET 5/325MG TAB PO PRN (01:00)
[2022-12-07] MEDS ORDERED: ACETAMINOPHEN 325 MG TAB PO PRN (01:00)
[2022-12-07] MEDS ORDERED: DEXTROSE (50%) 50ML SYRG IV PRN (01:00)
[2022-12-07] MEDS ORDERED: hydrALAZINE HCL 20 MG/ML VL IV PRN (01:00)
[2022-12-07] MEDS ORDERED: HYDROcodone-ACET 10/325MG TAB PO ONE (01:15)
[2022-12-07] MEDS: SODIUM CHLOR 0.9% PF (SALINE LOCK) 10ML VIAL/SYR IV SCH ×3 (06:06→22:54)
[2022-12-07 06:32] LABS: Basophils # (auto) 0 10 ^3/uL (0-0.2); Basophils % (auto) 0.6 % (0.0-2.0); Eosinophils # (auto) 0.1 10 ^3/uL (0-0.8); Eosinophils % (auto) 1.9 % (0.0-7.0); Hematocrit 42.1 % (41.0-53.0); Hemoglobin 14.3 g/dL (13.5-17.5); Lymphocytes # (auto) 1.3 10 ^3/uL (0.4-5.4); Lymphocytes % (auto) 17.8 % (10.0-50.0); Mean Corpuscular Hemoglobin 32.5 pg (28.0-32.0); Mean Corpuscular Hgb Conc. 33.9 g/dL (32.0-36.0); Mean Corpuscular Volume 95.9 fL (80.0-100.0); Monocytes # (auto) 0.6 10 ^3/uL (0-1.3); Monocytes % (auto) 7.8 % (0.0-12.0); Neutrophils # (auto) 5.3 10 ^3/uL (1.6-8.6); Neutrophils % (auto) 71.9 % (37.0-80.0); Nucleated Red Blood Cells % 0.1 %; Red Blood Cells 4.38 10^6/uL (4.5-5.90); Red Cell Distribution Width 13.5 % (11.8-14.3); White Blood Cell 7.4 10^3/uL (4.4-10.8)
[2022-12-07 06:48] LABS: Albumin 3.4 g/dL (3.4-5.0); Calcium 8.5 mg/dL (8.5-10.1); Potassium 4.3 mmol/L (3.5-5.1)
[2022-12-07] MEDS: InsuLIN REG 1unit/0.01ml Soln (100units/ml) SC SCH ×4 (06:49→23:00)
[2022-12-07] MEDS: ACCU-CHEK COMFORT CURVE STRIP VI SCH ×4 (06:49→22:54)
[2022-12-07 06:55] LABS: BUN/Creatinine Ratio 15.9 (10.0-20.0); Bilirubin, Total 0.7 mg/dL (0.2-1.0); Total Protein 6.8 g/dL (6.4-8.2)
[2022-12-07] MEDS ORDERED: NITROGLYCERIN 0.4 MG SL TAB SL PRN (07:30)
[2022-12-07] MEDS ORDERED: MORPHINE SULFATE INJ 2 MG/ml SYRG IV PRN (07:30)
[2022-12-07] MEDS: LISINOPRIL 10 MG TAB PO SCH (10:10)
[2022-12-07] MEDS: dilTIAZem HCL 180MG ER CAP PO SCH (10:10)
[2022-12-07] MEDS: ASPirin 81 mg TAB PO SCH (10:10)
[2022-12-07] MEDS: MORPHINE SULFATE INJ 2 MG/ml SYRG IV PRN (22:53)
[2022-12-08 06:21] LABS: Potassium 4.6 mmol/L (3.5-5.1)
[2022-12-08 06:28] LABS: Albumin 3.3 g/dL (3.4-5.0); BUN/Creatinine Ratio 16.1 (10.0-20.0); Bilirubin, Total 0.5 mg/dL (0.2-1.0); Calcium 8.6 mg/dL (8.5-10.1); Total Protein 6.4 g/dL (6.4-8.2)
[2022-12-08] MEDS: SODIUM CHLOR 0.9% PF (SALINE LOCK) 10ML VIAL/SYR IV SCH (06:38)
[2022-12-08 06:39] LABS: Basophils # (auto) 0 10 ^3/uL (0-0.2); Basophils % (auto) 0.3 % (0.0-2.0); Eosinophils # (auto) 0.3 10 ^3/uL (0-0.8); Eosinophils % (auto) 3.7 % (0.0-7.0); Hematocrit 42.9 % (41.0-53.0); Hemoglobin 14.3 g/dL (13.5-17.5); Lymphocytes # (auto) 1.3 10 ^3/uL (0.4-5.4); Mean Corpuscular Hemoglobin 32.1 pg (28.0-32.0); Mean Corpuscular Hgb Conc. 33.3 g/dL (32.0-36.0); Mean Corpuscular Volume 96.3 fL (80.0-100.0); Monocytes # (auto) 0.8 10 ^3/uL (0-1.3); Monocytes % (auto) 8.5 % (0.0-12.0); Neutrophils # (auto) 6.9 10 ^3/uL (1.6-8.6); Neutrophils % (auto) 73.5 % (37.0-80.0); Nucleated Red Blood Cells % 0.1 %; Red Blood Cells 4.46 10^6/uL (4.5-5.90); Red Cell Distribution Width 13.8 % (11.8-14.3); White Blood Cell 9.4 10^3/uL (4.4-10.8)
[2022-12-08] MEDS: ACCU-CHEK COMFORT CURVE STRIP VI SCH ×2 (06:49→11:55)
[2022-12-08] MEDS: InsuLIN REG 1unit/0.01ml Soln (100units/ml) SC SCH ×2 (06:50→11:55)
[2022-12-08] MEDS: MORPHINE SULFATE INJ 2 MG/ml SYRG IV PRN (09:46)
[2022-12-08] MEDS: ASPirin 81 mg TAB PO SCH (09:47)
[2022-12-08] MEDS: dilTIAZem HCL 180MG ER CAP PO SCH (09:48)
[2022-12-08] MEDS: LISINOPRIL 10 MG TAB PO SCH (09:50)
[2022-12-08] MEDS ORDERED: HYDR-4798 PO (11:15)
[2022-12-08 11:43] VITALS: BP 154/88
== END 2022-12-08 11:55 | disposition home or self-care (01) | DRG 281 ==
LOC: EDBD 19:38 → ER 19:38 → TELE 12-07 07:33
PROVIDERS: ADMIT Nurse Practitioner Family; ATTEND Nurse Practitioner Acute Care
DX: I21.4 Non-ST elevation (NSTEMI) myocardial infarction (principal); N17.9 Acute kidney failure, unspecified; Z68.45 Body mass index [BMI] 70 or greater, adult; E11.9 Type 2 diabetes mellitus without complications; E66.9 Obesity, unspecified; E78.5 Hyperlipidemia, unspecified; E89.0 Postprocedural hypothyroidism; I11.0 Hypertensive heart disease with heart failure; I16.0 Hypertensive urgency; G89.29 Other chronic pain; M54.9 Dorsalgia, unspecified; K21.9 Gastro-esophageal reflux disease without esophagitis; I25.10 Atherosclerotic heart disease of native coronary artery without angina pectoris; I48.91 Unspecified atrial fibrillation; I50.9 Heart failure, unspecified; M47.816 Spondylosis without myelopathy or radiculopathy, lumbar region; M16.0 Bilateral primary osteoarthritis of hip; Z95.1 Presence of aortocoronary bypass graft; Z79.82 Long term (current) use of aspirin; Z79.899 Other long term (current) drug therapy
CPT/HCPCS: 36415; 72131; 72192; 73090; 80053; 82962; 83036; 85025; 85610; 93005; G0378; J2405

== ENCOUNTER → 2023-10-19 | Outpatient (CLI) | payer OTHER ==
[~2023-10-19] MED LIST changes: +HYDR-4798 PO
[2023-10-19 09:45] LABS: Basophils # (auto) 0.1 10 ^3/uL (0-0.2); Eosinophils # (auto) 0.4 10 ^3/uL (0-0.8); Eosinophils % (auto) 5.3 % (0.0-7.0); Hematocrit 47.1 % (41.0-53.0); Hemoglobin 15.7 g/dL (13.5-17.5); Lymphocytes # (auto) 1.9 10 ^3/uL (0.4-5.4); Lymphocytes % (auto) 26.4 % (10.0-50.0); Mean Corpuscular Hgb Conc. 33.4 g/dL (32.0-36.0); Mean Corpuscular Volume 95.9 fL (80.0-100.0); Monocytes # (auto) 0.7 10 ^3/uL (0-1.3); Monocytes % (auto) 9.2 % (0.0-12.0); Neutrophils # (auto) 4.2 10 ^3/uL (1.6-8.6); Neutrophils % (auto) 58.1 % (37.0-80.0); Red Cell Distribution Width 13.4 % (11.8-14.3); White Blood Cell 7.1 10^3/uL (4.4-10.8)
[2023-10-19 09:51] LABS: Urine Bacteria NONE SEEN /hpf (None Seen); Urine Blood Negative /uL (Negative); Urine Clarity Clear (Clear); Urine Color Yellow (Yellow); Urine Protein, UAD Negative (Negative); Urine Specific Gravity 1.021 (1.001-1.035); Urine Urobilinogen Normal (Negative); Urine WBC 5 /hpf (0 - 3); Urine pH 5.5 (5.0-8.0)
[2023-10-19 10:25] LABS: Alanine Aminotransferase 16 U/L (7-40); Alkaline Phosphatase 39 U/L (46-116); Anion Gap 5 (5-15); BUN/Creatinine Ratio 12.1 (10.0-20.0); Blood Urea Nitrogen 15 mg/dL (9-23); Calcium 9.3 mg/dL (8.5-10.1); Carbon Dioxide 28 mmol/L (20-30); Chloride 106 mmol/L (98-107); Glucose 115 mg/dL (74-106); Potassium 4.8 mmol/L (3.5-5.1); Sodium 139 mmol/L (136-145); Triglycerides 243 mg/dL (< 150)
[2023-10-19 10:26] LABS: LDL Cholesterol 80 mg/dL (< 100)
[2023-10-19 10:27] LABS: Albumin 4.4 g/dL (3.2-4.8); Aspartate Aminotransferase 21 U/L (13-40); Bilirubin, Total 0.6 mg/dL (0.2-1.0); Cholesterol 155 mg/dL (< 200); Creatinine, Urine 115.25 mg/dL (30.0-125.0); HDL Cholesterol 36 mg/dL (40-59); Total Protein 6.6 g/dL (5.7-8.2)
[2023-10-19 10:29] LABS: Micro Albumin < 3.0 mg/L (<30.0)
== END | disposition home or self-care (01) ==
LOC: LAB 09:03
PROVIDERS: ATTEND Nurse Practitioner
DX: I10 Essential (primary) hypertension (principal); E11.9 Type 2 diabetes mellitus without complications; E78.5 Hyperlipidemia, unspecified
CPT/HCPCS: 36415; 80053; 80061; 81001; 82043; 82570; 83036; 84443; 85025

== ENCOUNTER 2023-12-11 23:05 | Inpatient (IN) | payer OTHER ==
[~2023-12-11] VITALS: Ht 177.8 cm; Wt 108.0 kg
[2023-12-11 23:33] VITALS: PULSE 95; RESP 15; O2SAT 95
[2023-12-11 23:44] LABS: Basophils # (auto) 0 10 ^3/uL (0-0.2); Basophils % (auto) 0.5 % (0.0-2.0); Eosinophils # (auto) 0.3 10 ^3/uL (0-0.8); Eosinophils % (auto) 3.9 % (0.0-7.0); Hematocrit 44.5 % (41.0-53.0); Hemoglobin 14.8 g/dL (13.5-17.5); Lymphocytes # (auto) 2.7 10 ^3/uL (0.4-5.4); Lymphocytes % (auto) 31.7 % (10.0-50.0); Mean Corpuscular Hemoglobin 31.9 pg (28.0-32.0); Mean Corpuscular Hgb Conc. 33.2 g/dL (32.0-36.0); Mean Corpuscular Volume 95.8 fL (80.0-100.0); Monocytes # (auto) 0.7 10 ^3/uL (0-1.3); Monocytes % (auto) 8.3 % (0.0-12.0); Neutrophils # (auto) 4.7 10 ^3/uL (1.6-8.6); Neutrophils % (auto) 55.6 % (37.0-80.0); Nucleated Red Blood Cells % 0.1 %; Red Blood Cells 4.64 10^6/uL (4.5-5.90); Red Cell Distribution Width 13.9 % (11.8-14.3); White Blood Cell 8.4 10^3/uL (4.4-10.8)
[2023-12-11 23:52] LABS: Urine Bacteria None Seen /hpf (None Seen)
[2023-12-11 23:57] LABS: Alanine Aminotransferase 19 U/L (7-40); Alkaline Phosphatase 50 U/L (46-116); Anion Gap 12 (5-15); Aspartate Aminotransferase 23 U/L (13-40); BUN/Creatinine Ratio 11.1 (10.0-20.0); Bilirubin, Total 0.4 mg/dL (0.2-1.0); Blood Urea Nitrogen 13 mg/dL (9-23); Calcium 8.9 mg/dL (8.7-10.4); Carbon Dioxide 20 mmol/L (20-30); Chloride 107 mmol/L (98-107); Glucose 126 mg/dL (74-106); Potassium 4.3 mmol/L (3.5-5.1); Sodium 139 mmol/L (136-145); Total Protein 6.4 g/dL (5.7-8.2)
[2023-12-11 23:58] LABS: INR 1.07 (0.9-1.15); Partial Thromboplastin Time 25.3 SEC (24.5-34.5); Prothrombin Time 11.3 sec (9.3-11.8)
[2023-12-12] VITALS (8 sets, daily range): BP systolic 118–167; BP diastolic 75–82; PULSE 66–79; RESP 14–21; TEMP 97.5–98.4; O2SAT 93–98
[2023-12-12 00:01] LABS: Urine Blood Negative /uL (Negative); Urine Clarity Clear (Clear); Urine Color Light-Yellow (Yellow); Urine Protein, UAD Negative (Negative); Urine Specific Gravity 1.013 (1.001-1.035); Urine Urobilinogen Normal (Negative); Urine WBC <1 /hpf (0 - 3); Urine pH 6.5 (5.0-9.0)
[2023-12-12 00:05] LABS: Amphetamine Screen, Urine Neg (NEGATIVE); Barbiturate Scree,Urine Neg (NEGATIVE); Benzodiazephine Screen, Urine Neg (NEGATIVE); Cocaine Screen, Urine Neg (NEGATIVE)
[2023-12-12 00:06] LABS: Cannabinoid Screen, Urine Neg (NEGATIVE); Opiate Scree,Urine Neg (NEGATIVE); Phencyclidine Screen, Urine Neg (NEGATIVE)
[2023-12-12] MEDS ORDERED: hydrALAZINE HCL 20 MG/ML VL IV PRN ×2 (03:00→03:15)
[2023-12-12] MEDS ORDERED: HYDROcodone-ACET 5/325MG TAB PO PRN (03:00)
[2023-12-12] MEDS ORDERED: NITROGLYCERIN 0.4 MG SL TAB SL PRN ×2 (03:00→03:15)
[2023-12-12] MEDS ORDERED: MORPHINE SULFATE INJ 2 MG/ml SYRG IV PRN ×2 (03:00→03:15)
[2023-12-12] MEDS ORDERED: DOCUSATE SOD 100 MG CAP PO PRN ×2 (03:00→03:15)
[2023-12-12] MEDS ORDERED: ONDANSETRON HCL 4 MG/2 ML VIAL IV PRN ×2 (03:00→03:15)
[2023-12-12] MEDS ORDERED: ACETAMINOPHEN 325 MG TAB PO PRN ×2 (03:00→03:15)
[2023-12-12] MEDS ORDERED: DEXTROSE (50%) 50ML SYRG IV PRN ×2 (03:00→03:15)
[2023-12-12 05:03] LABS: Alanine Aminotransferase 20 U/L (7-40); Alkaline Phosphatase 38 U/L (46-116); Anion Gap 7 (5-15); Aspartate Aminotransferase 19 U/L (13-40); BUN/Creatinine Ratio 16.8 (10.0-20.0); Blood Urea Nitrogen 19 mg/dL (9-23); Carbon Dioxide 24 mmol/L (20-30); Chloride 108 mmol/L (98-107); Glucose 113 mg/dL (74-106); Potassium 5.1 mmol/L (3.5-5.1); Sodium 139 mmol/L (136-145)
[2023-12-12 05:04] LABS: Bilirubin, Total 0.4 mg/dL (0.2-1.0); Total Protein 6.1 g/dL (5.7-8.2)
[2023-12-12 05:22] LABS: Basophils # (auto) 0.1 10 ^3/uL (0-0.2); Basophils % (auto) 0.6 % (0.0-2.0); Eosinophils # (auto) 0.2 10 ^3/uL (0-0.8); Eosinophils % (auto) 2.3 % (0.0-7.0); Hematocrit 42.8 % (41.0-53.0); Hemoglobin 14.3 g/dL (13.5-17.5); Lymphocytes # (auto) 1.8 10 ^3/uL (0.4-5.4); Lymphocytes % (auto) 21.2 % (10.0-50.0); Mean Corpuscular Hemoglobin 31.7 pg (28.0-32.0); Mean Corpuscular Hgb Conc. 33.3 g/dL (32.0-36.0); Mean Corpuscular Volume 95.1 fL (80.0-100.0); Monocytes # (auto) 0.7 10 ^3/uL (0-1.3); Monocytes % (auto) 7.6 % (0.0-12.0); Neutrophils % (auto) 68.3 % (37.0-80.0); Nucleated Red Blood Cells % 0.1 %; Red Cell Distribution Width 13.4 % (11.8-14.3); White Blood Cell 8.7 10^3/uL (4.4-10.8)
[2023-12-12] MEDS ORDERED: SODIUM CHLOR 0.9% PF (SALINE LOCK) 10ML VIAL/SYR IV SCH (06:00)
[2023-12-12] MEDS: SODIUM CHLOR 0.9% PF (SALINE LOCK) 10ML VIAL/SYR IV SCH (06:20)
[2023-12-12] MEDS: InsuLIN REG 1unit/0.01ml Soln (100units/ml) SC SCH ×2 (06:30→22:00)
[2023-12-12] MEDS: ACCU-CHEK COMFORT CURVE STRIP VI SCH (06:30)
[2023-12-12] MEDS ORDERED: InsuLIN REG 1unit/0.01ml Soln (100units/ml) SC SCH ×2 (07:00→22:00)
[2023-12-12] MEDS ORDERED: ACCU-CHEK COMFORT CURVE STRIP VI SCH (07:00)
[2023-12-12] MEDS ORDERED: ASPirin 81 mg TAB PO SCH (10:00)
[2023-12-12] MEDS ORDERED: LISINOPRIL 5 MG TAB PO SCH (10:00)
[2023-12-12] MEDS ORDERED: dilTIAZem HCL 180MG ER CAP PO SCH (10:00)
[2023-12-12] MEDS: LISINOPRIL 5 MG TAB PO SCH (12:13)
[2023-12-12] MEDS: ASPirin 81 mg TAB PO SCH (12:13)
[2023-12-12] MEDS: dilTIAZem HCL 180MG ER CAP PO SCH (12:14)
[2023-12-12] MEDS: METOPROLOL TARTRATE 1MG/1ML-5ML VIAL IV ONE ×3 (13:05→13:11)
[2023-12-12] MEDS: SODIUM CHLORIDE 0.9% 250 ML IV ONE ×2 (13:26→13:45)
[2023-12-12] MEDS: CLOPIDOGREL BISULFATE 75 MG TAB PO SCH (18:48)
[2023-12-13] VITALS (9 sets, daily range): BP systolic 115–153; BP diastolic 53–91; PULSE 54–86; RESP 14–20; TEMP 97.7–98.7; O2SAT 93–98
[2023-12-13] MEDS ORDERED: CLOP75TA70 PO (01:39)
[2023-12-13] MEDS ORDERED: ASPI-543 PO (01:39)
[2023-12-13] MEDS ORDERED: LISI20TA56 PO (01:39)
[2023-12-13 06:11] LABS: Basophils # (auto) 0 10 ^3/uL (0-0.2); Basophils % (auto) 0.5 % (0.0-2.0); Eosinophils # (auto) 0.3 10 ^3/uL (0-0.8); Eosinophils % (auto) 3.3 % (0.0-7.0); Hematocrit 41.1 % (41.0-53.0); Hemoglobin 13.9 g/dL (13.5-17.5); Lymphocytes % (auto) 24.1 % (10.0-50.0); Mean Corpuscular Hemoglobin 32.3 pg (28.0-32.0); Mean Corpuscular Hgb Conc. 33.8 g/dL (32.0-36.0); Mean Corpuscular Volume 95.5 fL (80.0-100.0); Monocytes # (auto) 0.7 10 ^3/uL (0-1.3); Monocytes % (auto) 8.1 % (0.0-12.0); Neutrophils # (auto) 5.3 10 ^3/uL (1.6-8.6); Nucleated Red Blood Cells % 0.1 %; Red Blood Cells 4.31 10^6/uL (4.5-5.90); Red Cell Distribution Width 13.5 % (11.8-14.3); White Blood Cell 8.3 10^3/uL (4.4-10.8)
[2023-12-13 06:13] LABS: Albumin 3.8 g/dL (3.2-4.8); Alkaline Phosphatase 33 U/L (46-116); Anion Gap 7 (5-15); Aspartate Aminotransferase 17 U/L (13-40); BUN/Creatinine Ratio 13.1 (10.0-20.0); Blood Urea Nitrogen 16 mg/dL (9-23); Calcium 8.8 mg/dL (8.7-10.4); Carbon Dioxide 23 mmol/L (20-30); Chloride 108 mmol/L (98-107); Glucose 108 mg/dL (74-106); Magnesium 2.1 mg/dL (1.6-2.6); Potassium 4.4 mmol/L (3.5-5.1); Sodium 138 mmol/L (136-145)
[2023-12-13 06:14] LABS: Bilirubin, Total 0.6 mg/dL (0.2-1.0); Total Protein 6.1 g/dL (5.7-8.2)
[2023-12-13 06:18] LABS: Alanine Aminotransferase 18 U/L (7-40)
[2023-12-13 07:08] LABS: Cholesterol 148 mg/dL (< 200); HDL Cholesterol 31 mg/dL (40-59); LDL Cholesterol 81 mg/dL (< 100); Triglycerides 191 mg/dL (< 150)
[2023-12-13] MEDS: HYDROcodone-ACET 5/325MG TAB PO PRN (09:42)
[2023-12-14] MEDS: HYDROcodone-ACET 5/325MG TAB PO ONE (00:30)
[2023-12-14 05:00] VITALS: BP 124/62; PULSE 61; RESP 17; TEMP 97.9; O2SAT 95
[2023-12-14 08:00] VITALS: PULSE 55
[2023-12-14 09:00] VITALS: BP 152/83; PULSE 71; RESP 16; TEMP 98.1; O2SAT 98
[2023-12-14 11:43] VITALS: BP 124/60; PULSE 62; RESP 18; TEMP 97.8; O2SAT 98
[2023-12-14 17:02] VITALS: BP 152/83; PULSE 71; TEMP 36.6
== END 2023-12-14 17:20 | disposition home or self-care (01) | DRG 310 ==
LOC: EDBD 23:05 → ER 23:05 → TELE 12-12 03:01 → TELE-WESTW 12-12 08:54
PROVIDERS: ADMIT Internal Medicine; ATTEND Internal Medicine
DX: I47.10 Supraventricular tachycardia, unspecified (principal); I25.10 Atherosclerotic heart disease of native coronary artery without angina pectoris; I16.0 Hypertensive urgency; J44.9 Chronic obstructive pulmonary disease, unspecified; E66.01 Morbid (severe) obesity due to excess calories; E11.9 Type 2 diabetes mellitus without complications; I11.0 Hypertensive heart disease with heart failure; I50.9 Heart failure, unspecified; E78.00 Pure hypercholesterolemia, unspecified; K21.9 Gastro-esophageal reflux disease without esophagitis; E89.0 Postprocedural hypothyroidism; Z90.49 Acquired absence of other specified parts of digestive tract; Z95.1 Presence of aortocoronary bypass graft; Z98.61 Coronary angioplasty status; Z84.1 Family history of disorders of kidney and ureter; Z80.9 Family history of malignant neoplasm, unspecified; Z83.3 Family history of diabetes mellitus; Z68.34 Body mass index [BMI] 34.0-34.9, adult
CPT/HCPCS: 36415; 80053; 80061; 80307; 81001; 82962; 83735; 83880; 84443; 84484; 85025; 85379; 85610; 85730; 93005; 93306; 93970; G0378; J1815

== ENCOUNTER 2024-01-03 12:48 | Inpatient (IN) | payer OTHER ==
[~2024-01-03] VITALS: Ht 182.9 cm; Wt 94.2 kg
[~2024-01-03 12:48] MED LIST changes: -ASPI-378 PO; +ASPI-543 PO; +CLOP75TA70 PO; -LIS10T PO; +LISI20TA56 PO; -TIZA4CAP PO
[2024-01-03 13:01] LABS: Basophils # (auto) 0.1 10 ^3/uL (0-0.2); Basophils % (auto) 0.7 % (0.0-2.0); Eosinophils # (auto) 0.1 10 ^3/uL (0-0.8); Eosinophils % (auto) 1.2 % (0.0-7.0); Hematocrit 44.8 % (41.0-53.0); Hemoglobin 15.3 g/dL (13.5-17.5); Lymphocytes # (auto) 1.7 10 ^3/uL (0.4-5.4); Lymphocytes % (auto) 15.2 % (10.0-50.0); Mean Corpuscular Hemoglobin 32.1 pg (28.0-32.0); Mean Corpuscular Hgb Conc. 34.1 g/dL (32.0-36.0); Monocytes # (auto) 0.7 10 ^3/uL (0-1.3); Monocytes % (auto) 6.1 % (0.0-12.0); Neutrophils # (auto) 8.4 10 ^3/uL (1.6-8.6); Neutrophils % (auto) 76.8 % (37.0-80.0); Nucleated Red Blood Cells % 0.1 %; Red Blood Cells 4.77 10^6/uL (4.5-5.90); Red Cell Distribution Width 13.4 % (11.8-14.3); White Blood Cell 10.9 10^3/uL (4.4-10.8)
[2024-01-03 13:10] VITALS: PULSE 72; RESP 14; O2SAT 95
[2024-01-03 13:17] LABS: INR 1.08 (0.9-1.15); Partial Thromboplastin Time 24.6 SEC (24.5-34.5); Prothrombin Time 11.4 sec (9.3-11.8)
[2024-01-03 13:20] LABS: Alanine Aminotransferase 20 U/L (7-40); Albumin 4.5 g/dL (3.2-4.8); Alkaline Phosphatase 46 U/L (46-116); Anion Gap 7 (5-15); Aspartate Aminotransferase 19 U/L (13-40); BUN/Creatinine Ratio 11.9 (10.0-20.0); Blood Urea Nitrogen 23 mg/dL (9-23); Calcium 8.8 mg/dL (8.5-10.1); Carbon Dioxide 21 mmol/L (20-30); Chloride 104 mmol/L (98-107); Glucose 184 mg/dL (74-106); Potassium 5.2 mmol/L (3.5-5.1); Sodium 132 mmol/L (136-145); Total Protein 7.1 g/dL (5.7-8.2)
[2024-01-03] MEDS: ASPirin 81 mg TAB PO ONE (13:55)
[2024-01-03] MEDS ORDERED: HYDROcodone-ACET 10/325MG TAB PO PRN (14:30)
[2024-01-03] MEDS ORDERED: ACETAMINOPHEN 325 MG TAB PO PRN (15:00)
[2024-01-03] MEDS ORDERED: NITROGLYCERIN 0.4 MG SL TAB SL PRN (15:00)
[2024-01-03] MEDS ORDERED: MORPHINE SULFATE INJ 2 MG/ml SYRG IV PRN (15:00)
[2024-01-03] MEDS: SODIUM CHLORIDE 0.9% 1,000 ML IV SCH (15:34)
[2024-01-03] MEDS ORDERED: DEXTROSE (50%) 50ML SYRG IV PRN (15:45)
[2024-01-03 17:16] LABS: Urine Bacteria FEW /hpf (None Seen); Urine Blood Negative /uL (Negative); Urine Clarity Turbid (Clear); Urine Color Yellow (Yellow); Urine Hyaline Cast MANY /lpf (0 - 2); Urine Mucus MODERATE (None Seen); Urine Protein, UAD 1+ (Negative); Urine Specific Gravity 1.027 (1.001-1.035); Urine Urobilinogen 2 mg/dL (Negative); Urine WBC 23 /hpf (0 - 3); Urine pH 5.5 (5.0-9.0)
[2024-01-03] MEDS: InsuLIN REG 1unit/0.01ml Soln (100units/ml) SC SCH (18:23)
[2024-01-03] MEDS: ACCU-CHEK COMFORT CURVE STRIP VI SCH (18:23)
[2024-01-03 19:25] VITALS: PULSE 77; RESP 16; O2SAT 92
[2024-01-03 22:45] VITALS: BP 119/57; PULSE 75; RESP 16; TEMP 97.6; O2SAT 94
[2024-01-04] VITALS (8 sets, daily range): BP systolic 110–142; BP diastolic 48–73; PULSE 16–96; RESP 16–72; TEMP 97.2–98.4; O2SAT 92–97
[2024-01-04 06:46] LABS: Alanine Aminotransferase 17 U/L (7-40); Albumin 3.9 g/dL (3.2-4.8); Alkaline Phosphatase 40 U/L (46-116); Anion Gap 4 (5-15); Aspartate Aminotransferase 15 U/L (13-40); Bilirubin, Total 0.7 mg/dL (0.2-1.0); Blood Urea Nitrogen 23 mg/dL (9-23); Calcium 8.4 mg/dL (8.7-10.4); Carbon Dioxide 23 mmol/L (20-30); Chloride 107 mmol/L (98-107); Glucose 107 mg/dL (74-106); Potassium 4.5 mmol/L (3.5-5.1); Sodium 134 mmol/L (136-145); Total Protein 6.4 g/dL (5.7-8.2)
[2024-01-04 06:53] LABS: Basophils # (auto) 0 10 ^3/uL (0-0.2); Basophils % (auto) 0.3 % (0.0-2.0); Eosinophils # (auto) 0.2 10 ^3/uL (0-0.8); Eosinophils % (auto) 1.8 % (0.0-7.0); Hematocrit 42.4 % (41.0-53.0); Hemoglobin 14.4 g/dL (13.5-17.5); Lymphocytes % (auto) 17.7 % (10.0-50.0); Mean Corpuscular Hemoglobin 32.2 pg (28.0-32.0); Mean Corpuscular Hgb Conc. 33.8 g/dL (32.0-36.0); Monocytes # (auto) 0.9 10 ^3/uL (0-1.3); Monocytes % (auto) 7.6 % (0.0-12.0); Neutrophils # (auto) 8.2 10 ^3/uL (1.6-8.6); Neutrophils % (auto) 72.6 % (37.0-80.0); Nucleated Red Blood Cells % 0.2 %; Red Blood Cells 4.47 10^6/uL (4.5-5.90); Red Cell Distribution Width 13.7 % (11.8-14.3); White Blood Cell 11.3 10^3/uL (4.4-10.8)
[2024-01-04] MEDS ORDERED: LISINOPRIL 20 MG TAB PO SCH (10:00)
[2024-01-04] MEDS: DILTIAZEM HCL COATED BEADS PO SCH (10:00)
[2024-01-04] MEDS ORDERED: ASPirin 81 mg TAB PO SCH (10:00)
[2024-01-04] MEDS: ASPirin-EC 81 mg tab PO SCH (10:25)
[2024-01-04] MEDS: CLOPIDOGREL BISULFATE 75 MG TAB PO SCH (10:26)
[2024-01-04 11:33] LABS: Free T3 3.4 pg/mL (2.3-4.2)
[2024-01-04 11:34] LABS: Free T4 (Free Thyroxine) 0.93 ng/dL (0.89-1.76)
[2024-01-04] MEDS: dilTIAZem HCL 180MG ER CAP PO ONE (14:30)
[2024-01-04] MEDS: cefTRIAXone 1GM/50ML D5W 50 ML IV ONE (15:31)
[2024-01-05] VITALS (9 sets, daily range): BP systolic 104–142; BP diastolic 51–71; PULSE 71–89; RESP 14–22; TEMP 97.5–98.8; O2SAT 94–99
[2024-01-05 09:50] LABS: Chloride 106 mmol/L (98-107); Potassium 4.3 mmol/L (3.5-5.1); Sodium 135 mmol/L (136-145)
[2024-01-05 09:51] LABS: Anion Gap 4 (5-15); Carbon Dioxide 25 mmol/L (20-30)
[2024-01-05 09:52] LABS: Calcium 8.5 mg/dL (8.5-10.1)
[2024-01-05 09:57] LABS: Basophils # (auto) 0 10 ^3/uL (0-0.2); Basophils % (auto) 0.5 % (0.0-2.0); Eosinophils # (auto) 0.3 10 ^3/uL (0-0.8); Eosinophils % (auto) 3.1 % (0.0-7.0); Glucose 128 mg/dL (74-106); Hematocrit 43.1 % (41.0-53.0); Hemoglobin 14.4 g/dL (13.5-17.5); Lymphocytes # (auto) 1.5 10 ^3/uL (0.4-5.4); Lymphocytes % (auto) 18.2 % (10.0-50.0); Mean Corpuscular Hemoglobin 31.6 pg (28.0-32.0); Mean Corpuscular Hgb Conc. 33.4 g/dL (32.0-36.0); Mean Corpuscular Volume 94.8 fL (80.0-100.0); Monocytes # (auto) 0.7 10 ^3/uL (0-1.3); Monocytes % (auto) 8.2 % (0.0-12.0); Neutrophils # (auto) 5.6 10 ^3/uL (1.6-8.6); Nucleated Red Blood Cells % 0.2 %; Red Blood Cells 4.55 10^6/uL (4.5-5.90); Red Cell Distribution Width 13.1 % (11.8-14.3)
[2024-01-05] MEDS: cefTRIAXone 1GM/50ML D5W 50 ML IV SCH (09:59)
[2024-01-05] MEDS ORDERED: dilTIAZem HCL 180MG ER CAP PO SCH (10:00)
[2024-01-05] MEDS: dilTIAZem HCL 180MG ER CAP PO SCH (10:00)
[2024-01-05 10:52] LABS: BUN/Creatinine Ratio 12.4 (10.0-20.0); Blood Urea Nitrogen 15 mg/dL (9-23)
[2024-01-05 11:52] LABS: Giant Platelets Few; Platelet Estimate Decreased
[2024-01-06] VITALS (11 sets, daily range): BP systolic 102–151; BP diastolic 52–76; PULSE 66–89; RESP 13–22; TEMP 97.4–98.8; O2SAT 93–100
[2024-01-06] MEDS: HYDROcodone-ACET 5/325MG TAB PO PRN (01:21)
[2024-01-06 06:59] LABS: Basophils # (auto) 0 10 ^3/uL (0-0.2); Basophils % (auto) 0.5 % (0.0-2.0); Eosinophils # (auto) 0.3 10 ^3/uL (0-0.8); Eosinophils % (auto) 3.6 % (0.0-7.0); Hematocrit 42.7 % (41.0-53.0); Hemoglobin 14.5 g/dL (13.5-17.5); Lymphocytes # (auto) 1.9 10 ^3/uL (0.4-5.4); Lymphocytes % (auto) 21.6 % (10.0-50.0); Mean Corpuscular Hgb Conc. 33.9 g/dL (32.0-36.0); Mean Corpuscular Volume 94.3 fL (80.0-100.0); Monocytes # (auto) 0.8 10 ^3/uL (0-1.3); Monocytes % (auto) 9.4 % (0.0-12.0); Neutrophils # (auto) 5.8 10 ^3/uL (1.6-8.6); Neutrophils % (auto) 64.9 % (37.0-80.0); Nucleated Red Blood Cells % 0.1 %; Red Blood Cells 4.53 10^6/uL (4.5-5.90); Red Cell Distribution Width 13.6 % (11.8-14.3); White Blood Cell 8.9 10^3/uL (4.4-10.8)
[2024-01-06 07:11] LABS: Chloride 108 mmol/L (98-107); Potassium 4.4 mmol/L (3.5-5.1); Sodium 136 mmol/L (136-145)
[2024-01-06 07:12] LABS: Anion Gap 3 (5-15); Carbon Dioxide 25 mmol/L (20-30)
[2024-01-06 07:13] LABS: Calcium 8.6 mg/dL (8.5-10.1)
[2024-01-06 07:17] LABS: BUN/Creatinine Ratio 12.1 (10.0-20.0); Blood Urea Nitrogen 15 mg/dL (9-23); Glucose 95 mg/dL (74-106); INR 1.03 (0.9-1.15); Partial Thromboplastin Time 26.2 SEC (24.5-34.5); Prothrombin Time 10.9 sec (9.3-11.8)
[2024-01-06] MEDS: HEPARIN SODIUM (PORCINE) 5000 UNITS/ML 1ML VIAL ONE (15:38)
[2024-01-06] MEDS: ANGIOMAX 250 MG VIAL IV ONE ×2 (15:38→16:42)
[2024-01-06] MEDS: VERAPAMIL 2.5MG/ML INJ 2ML VIAL IV ONE (15:38)
[2024-01-06] MEDS: SODIUM CHL 0.9% 50 ML ONE ×2 (15:39→16:42)
[2024-01-06] MEDS: LIDOCAINE 2%HCL (LOCAL ANESTH.) INJ 20ML MDV ONE (15:39)
[2024-01-06] MEDS: fentaNYL CITRATE 100 MCG/2 ML VL ONE ×2 (15:39→17:20)
[2024-01-06] MEDS: MIDAZOLAM HCL 2MG/2ML 2ml VIAL (1mg/ml) ONE ×2 (15:39→17:20)
[2024-01-06] MEDS: IODIXANOL 320MG/ML 100ML BTL IV ONE ×3 (15:40→17:20)
[2024-01-06] MEDS: HYDROmorphone HCL 2 MG/ML VL/or syr ONE (16:04)
[2024-01-06] MEDS: hydrALAZINE HCL 20 MG/ML VL ONE (16:21)
[2024-01-06] MEDS: ONDANSETRON HCL 4 MG/2 ML VIAL ONE (17:20)
[2024-01-06] MEDS: SODIUM CHLORIDE 0.9% 250 ML IV ONE (17:45)
[2024-01-06] MEDS ORDERED: HYDR-4902 PO (17:50)
[2024-01-06] MEDS ORDERED: NIFE1TAB30 PO (17:51)
[2024-01-06] MEDS ORDERED: ONDANSETRON HCL 4 MG/2 ML VIAL IV PRN (22:30)
[2024-01-07 01:00] VITALS: BP 130/67; PULSE 77; RESP 20; TEMP 98; O2SAT 98
[2024-01-07 05:00] VITALS: BP 169/81; PULSE 91; RESP 22; TEMP 98.4; O2SAT 96
[2024-01-07 08:00] VITALS: PULSE 79; PULSE 80; RESP 18; O2SAT 96
[2024-01-07 08:55] VITALS: BP 125/72; PULSE 70; RESP 16; TEMP 98.3; O2SAT 95
[2024-01-07] MEDS: dilTIAZem HCL 180MG ER CAP PO SCH (09:13)
[2024-01-07] MEDS: NIFEdipine ER 30 MG TAB PO SCH (09:15)
[2024-01-07 09:17] LABS: Basophils # (auto) 0 10 ^3/uL (0-0.2); Basophils % (auto) 0.3 % (0.0-2.0); Eosinophils # (auto) 0.1 10 ^3/uL (0-0.8); Eosinophils % (auto) 0.4 % (0.0-7.0); Hematocrit 44.9 % (41.0-53.0); Hemoglobin 14.9 g/dL (13.5-17.5); Lymphocytes # (auto) 1.5 10 ^3/uL (0.4-5.4); Lymphocytes % (auto) 11.8 % (10.0-50.0); Mean Corpuscular Hemoglobin 31.6 pg (28.0-32.0); Mean Corpuscular Hgb Conc. 33.3 g/dL (32.0-36.0); Mean Corpuscular Volume 94.9 fL (80.0-100.0); Monocytes # (auto) 0.9 10 ^3/uL (0-1.3); Monocytes % (auto) 7.4 % (0.0-12.0); Neutrophils # (auto) 10.1 10 ^3/uL (1.6-8.6); Neutrophils % (auto) 80.1 % (37.0-80.0); Nucleated Red Blood Cells % 0.1 %; Red Blood Cells 4.73 10^6/uL (4.5-5.90); Red Cell Distribution Width 13.5 % (11.8-14.3); White Blood Cell 12.6 10^3/uL (4.4-10.8)
[2024-01-07] MEDS ORDERED: ATOR20TA50 PO (09:45)
[2024-01-07 10:59] LABS: Chloride 106 mmol/L (98-107); Potassium 4.4 mmol/L (3.5-5.1); Sodium 136 mmol/L (136-145)
[2024-01-07 11:00] LABS: Anion Gap 6 (5-15); Carbon Dioxide 24 mmol/L (20-30)
[2024-01-07 11:05] LABS: BUN/Creatinine Ratio 12.7 (10.0-20.0); Blood Urea Nitrogen 14 mg/dL (9-23); Glucose 115 mg/dL (74-106)
[2024-01-07 12:05] VITALS: BP 134/58; PULSE 81; RESP 16; TEMP 98.3; O2SAT 95
[2024-01-07 12:35] VITALS: BP 125/72; PULSE 70; TEMP 36.8
[2024-01-07] MEDS ORDERED: ATORVASTATIN 20 MG TAB PO SCH (22:00)
== END 2024-01-07 14:00 | disposition home or self-care (01) | DRG 321 ==
LOC: EDBD 12:48 → ER 12:48 → TELE 14:52 → TELE-EAST 22:30
PROVIDERS: ADMIT Internal Medicine Geriatric Medicine; ATTEND Emergency Medicine
PROC: 4A023N7 Measurement of Cardiac Sampling and Pressure, Left Heart, Percutaneous Approach (ICD-10-PCS; principal; 2024-01-06)
PROC: 027034Z Dilation of Coronary Artery, One Artery with Drug-eluting Intraluminal Device, Percutaneous Approach (ICD-10-PCS; 2024-01-06)
PROC: 02C03Z7 Extirpation of Matter from Coronary Artery, One Artery, Orbital Atherectomy Technique, Percutaneous Approach (ICD-10-PCS; 2024-01-06)
PROC: B211YZZ Fluoroscopy of Multiple Coronary Arteries using Other Contrast (ICD-10-PCS; 2024-01-06)
PROC: B215YZZ Fluoroscopy of Left Heart using Other Contrast (ICD-10-PCS; 2024-01-06)
PROC: B218YZZ Fluoroscopy of Left Internal Mammary Bypass Graft using Other Contrast (ICD-10-PCS; 2024-01-06)
PROC: 3E03317 Introduction of Other Thrombolytic into Peripheral Vein, Percutaneous Approach (ICD-10-PCS; 2024-01-06)
DX: I25.10 Atherosclerotic heart disease of native coronary artery without angina pectoris (principal); N17.0 Acute kidney failure with tubular necrosis; I13.0 Hypertensive heart and chronic kidney disease with heart failure and stage 1 through stage 4 chronic kidney disease, or unspecified chronic kidney disease; E87.1 Hypo-osmolality and hyponatremia; N39.0 Urinary tract infection, site not specified; E11.22 Type 2 diabetes mellitus with diabetic chronic kidney disease; E11.65 Type 2 diabetes mellitus with hyperglycemia; E66.01 Morbid (severe) obesity due to excess calories; E78.5 Hyperlipidemia, unspecified; E87.5 Hyperkalemia; E03.9 Hypothyroidism, unspecified; J44.9 Chronic obstructive pulmonary disease, unspecified; K21.9 Gastro-esophageal reflux disease without esophagitis; N18.9 Chronic kidney disease, unspecified; Z95.1 Presence of aortocoronary bypass graft; Z90.49 Acquired absence of other specified parts of digestive tract; Z79.891 Long term (current) use of opiate analgesic; Z79.899 Other long term (current) drug therapy; Z79.82 Long term (current) use of aspirin; Z68.28 Body mass index [BMI] 28.0-28.9, adult; Z83.3 Family history of diabetes mellitus
CPT/HCPCS: 36415; 71045; 80048; 80053; 81001; 82962; 83880; 84439; 84481; 84484; 85025; 85610; 85730; 86850; 86900; 86901; 87086; 93005; 96360; 99152; C1724; C1874; C1887; G0378; J1815; J2250; J2405; Q9967

== ENCOUNTER 2024-01-16 22:16 | Emergency (ER) | payer OTHER ==
[~2024-01-16] VITALS: Ht 182.9 cm; Wt 118.0 kg
[~2024-01-16 22:16] MED LIST changes: +ATOR20TA50 PO; -HYDR-4798 PO; +HYDR-4902 PO; +NIFE1TAB30 PO
[2024-01-16 23:27] VITALS: TEMP 97.9; O2SAT 96
[2024-01-16 23:50] VITALS: BP 125/51; PULSE 82; RESP 18
[2024-01-16] MEDS: MORPHINE SULFATE 4 MG/ML SYR/VIAL IM ONE (23:50)
[2024-01-16] MEDS: ONDANSETRON HCL 4 MG/2 ML VIAL IM ONE (23:51)
[2024-01-16] MEDS: CYCLOBENZAPRINE HCL 10 MG TAB PO ONE (23:52)
== END 2024-01-17 00:56 | disposition home or self-care (01) ==
LOC: ER 22:16 → EDBD 22:16 → ER 01-17 00:15
DX: G89.29 Other chronic pain (principal); M54.59 Other low back pain; I10 Essential (primary) hypertension; E11.9 Type 2 diabetes mellitus without complications; E78.5 Hyperlipidemia, unspecified; K21.9 Gastro-esophageal reflux disease without esophagitis; I25.10 Atherosclerotic heart disease of native coronary artery without angina pectoris; Z98.890 Other specified postprocedural states; Z79.899 Other long term (current) drug therapy
CPT/HCPCS: 93005; 96372; 99284; J2270; J2405

== ENCOUNTER 2024-02-17 09:44 | Emergency (ER) | payer OTHER ==
[~2024-02-17] VITALS: Ht 177.8 cm; Wt 104.6 kg
[2024-02-17 13:11] VITALS: BP 96/62; PULSE 75; RESP 16; TEMP 97.7; O2SAT 96
== END 2024-02-17 13:18 | disposition home or self-care (01) ==
LOC: ER 09:44
DX: M79.89 Other specified soft tissue disorders (principal); E11.9 Type 2 diabetes mellitus without complications; K21.9 Gastro-esophageal reflux disease without esophagitis; E78.5 Hyperlipidemia, unspecified; I10 Essential (primary) hypertension; E03.9 Hypothyroidism, unspecified; Z79.82 Long term (current) use of aspirin; Z79.84 Long term (current) use of oral hypoglycemic drugs; Z79.899 Other long term (current) drug therapy; Z86.73 Personal history of transient ischemic attack (TIA), and cerebral infarction without residual deficits; Z90.49 Acquired absence of other specified parts of digestive tract; Z90.89 Acquired absence of other organs; Z98.890 Other specified postprocedural states
CPT/HCPCS: 93971

== ENCOUNTER → 2024-02-17 | Outpatient (CLI) | payer OTHER ==
[2024-02-17 14:12] LABS: Chloride 107 mmol/L (98-107); Potassium 5.3 mmol/L (3.5-5.1); Sodium 136 mmol/L (136-145)
[2024-02-17 14:13] LABS: Anion Gap 5 (5-15); Carbon Dioxide 24 mmol/L (20-30)
[2024-02-17 14:14] LABS: Calcium 9.4 mg/dL (8.7-10.4)
[2024-02-17 14:18] LABS: Glucose 116 mg/dL (74-106)
[2024-02-17 14:19] LABS: BUN/Creatinine Ratio 14.8 (10.0-20.0); Blood Urea Nitrogen 21 mg/dL (9-23)
== END | disposition home or self-care (01) ==
LOC: LAB 13:30
PROVIDERS: ATTEND Internal Medicine
DX: I10 Essential (primary) hypertension (principal); I25.810 Atherosclerosis of coronary artery bypass graft(s) without angina pectoris; R60.0 Localized edema
CPT/HCPCS: 36415; 80048; 83880

== ENCOUNTER → 2024-03-04 | Outpatient (CLI) | payer OTHER ==
[2024-03-04 09:30] LABS: Alanine Aminotransferase 20 U/L (7-40); Alkaline Phosphatase 44 U/L (46-116); Anion Gap 7 (5-15); BUN/Creatinine Ratio 14.1 (10.0-20.0); Blood Urea Nitrogen 19 mg/dL (9-23); Calcium 9.2 mg/dL (8.7-10.4); Carbon Dioxide 24 mmol/L (20-30); Chloride 104 mmol/L (98-107); Glucose 129 mg/dL (74-106); Potassium 4.5 mmol/L (3.5-5.1); Sodium 135 mmol/L (136-145)
[2024-03-04 09:31] LABS: Albumin 4.4 g/dL (3.2-4.8); Aspartate Aminotransferase 14 U/L (13-40); Bilirubin, Total 0.8 mg/dL (0.2-1.0); Total Protein 6.7 g/dL (5.7-8.2)
== END | disposition home or self-care (01) ==
LOC: LAB 08:36
PROVIDERS: ATTEND Internal Medicine
DX: I13.0 Hypertensive heart and chronic kidney disease with heart failure and stage 1 through stage 4 chronic kidney disease, or unspecified chronic kidney disease (principal); I50.9 Heart failure, unspecified; N18.9 Chronic kidney disease, unspecified; I47.10 Supraventricular tachycardia, unspecified; M79.89 Other specified soft tissue disorders; I25.810 Atherosclerosis of coronary artery bypass graft(s) without angina pectoris
CPT/HCPCS: 36415; 80053

== ENCOUNTER 2024-03-23 14:27 | Inpatient (IN) | payer OTHER ==
[~2024-03-23] VITALS: Ht 180.3 cm; Wt 105.2 kg
[2024-03-23 15:12] LABS: Basophils # (auto) 0.1 10 ^3/uL (0-0.2); Basophils % (auto) 0.6 % (0.0-2.0); Eosinophils # (auto) 0.4 10 ^3/uL (0-0.8); Eosinophils % (auto) 4.3 % (0.0-7.0); Hemoglobin 14.1 g/dL (13.5-17.5); Lymphocytes # (auto) 1.6 10 ^3/uL (0.4-5.4); Lymphocytes % (auto) 16.5 % (10.0-50.0); Mean Corpuscular Hemoglobin 32.6 pg (28.0-32.0); Mean Corpuscular Hgb Conc. 34.3 g/dL (32.0-36.0); Monocytes # (auto) 0.7 10 ^3/uL (0-1.3); Monocytes % (auto) 7.2 % (0.0-12.0); Neutrophils % (auto) 71.4 % (37.0-80.0); Nucleated Red Blood Cells % 0.1 %; Red Blood Cells 4.32 10^6/uL (4.5-5.90); Red Cell Distribution Width 13.8 % (11.8-14.3); White Blood Cell 9.8 10^3/uL (4.4-10.8)
[2024-03-23 15:27] LABS: Chloride 106 mmol/L (98-107); Potassium 4.9 mmol/L (3.5-5.1); Sodium 138 mmol/L (136-145)
[2024-03-23 15:28] LABS: Anion Gap 9 (5-15); Carbon Dioxide 23 mmol/L (20-30)
[2024-03-23 15:29] LABS: Calcium 9.4 mg/dL (8.7-10.4)
[2024-03-23 15:33] LABS: BUN/Creatinine Ratio 15.5 (10.0-20.0); Blood Urea Nitrogen 22 mg/dL (9-23); Glucose 137 mg/dL (74-106)
[2024-03-23] MEDS: FUROSEMIDE 40 MG/4 ML VIAL IV ONE (15:40)
[2024-03-23 15:51] VITALS: PULSE 91; RESP 18; O2SAT 98
[2024-03-23] MEDS ORDERED: ONDANSETRON HCL 4 MG/2 ML VIAL IV PRN (16:00)
[2024-03-23] MEDS ORDERED: ACETAMINOPHEN 325 MG TAB PO PRN (16:00)
[2024-03-23] MEDS ORDERED: DOCUSATE SOD 100 MG CAP PO PRN (16:00)
[2024-03-23] MEDS: HYDROcodone-ACET 5/325MG TAB PO PRN (20:23)
[2024-03-23] MEDS: HYDROcodone-ACET 10/325MG TAB PO PRN (21:03)
[2024-03-23 21:06] LABS: COVID19 ANTIGEN SOFIA FIA NEGATIVE (NEGATIVE)
[2024-03-23] MEDS: SODIUM CHLOR 0.9% PF (SALINE LOCK) 10ML VIAL/SYR IV SCH (21:48)
[2024-03-23 22:42] VITALS: BP_SYST 116; BP_DIAS 44; BP_DIAS 49; PULSE 59; PULSE 70; RESP 17; RESP 18; TEMP 97.8; O2SAT 95; O2SAT 98
[2024-03-24 00:59] VITALS: BP 128/68; PULSE 59; RESP 18; TEMP 98.2; O2SAT 93
[2024-03-24 05:00] VITALS: BP 111/60; PULSE 67; RESP 16; TEMP 97.8; O2SAT 93
[2024-03-24 09:00] VITALS: BP 127/63; PULSE 61; RESP 18; TEMP 97.6; O2SAT 94
[2024-03-24 11:04] LABS: Alanine Aminotransferase 28 U/L (7-40); Albumin 4.3 g/dL (3.2-4.8); Alkaline Phosphatase 43 U/L (46-116); Anion Gap 8 (5-15); Aspartate Aminotransferase 20 U/L (13-40); Basophils # (auto) 0 10 ^3/uL (0-0.2); Basophils % (auto) 0.3 % (0.0-2.0); Blood Urea Nitrogen 23 mg/dL (9-23); Calcium 8.9 mg/dL (8.7-10.4); Carbon Dioxide 24 mmol/L (20-30); Chloride 105 mmol/L (98-107); Eosinophils # (auto) 0.4 10 ^3/uL (0-0.8); Glucose 146 mg/dL (74-106); Hematocrit 39.1 % (41.0-53.0); Hemoglobin 13.2 g/dL (13.5-17.5); Lymphocytes # (auto) 1.4 10 ^3/uL (0.4-5.4); Mean Corpuscular Hemoglobin 32.3 pg (28.0-32.0); Mean Corpuscular Hgb Conc. 33.8 g/dL (32.0-36.0); Mean Corpuscular Volume 95.5 fL (80.0-100.0); Monocytes # (auto) 0.9 10 ^3/uL (0-1.3); Monocytes % (auto) 7.9 % (0.0-12.0); Neutrophils # (auto) 8.5 10 ^3/uL (1.6-8.6); Neutrophils % (auto) 75.8 % (37.0-80.0); Phosphorus 3.8 mg/dL (2.4-5.1); Potassium 4.2 mmol/L (3.5-5.1); Red Cell Distribution Width 13.8 % (11.8-14.3); Sodium 137 mmol/L (136-145); Total Protein 6.5 g/dL (5.7-8.2); White Blood Cell 11.3 10^3/uL (4.4-10.8)
[2024-03-24 11:05] LABS: INR 1.09 (0.9-1.15); Partial Thromboplastin Time 26.2 SEC (24.5-34.5); Prothrombin Time 11.5 sec (9.3-11.8)
[2024-03-24] MEDS: FUROSEMIDE 20 MG/2 ML VIAL IV SCH (11:08)
[2024-03-24] MEDS: ENOXAPARIN SOD 40 MG/0.4 ML SYRINGE SC SCH (11:08)
[2024-03-24] MEDS: dilTIAZem HCL 180MG ER CAP PO SCH (11:09)
[2024-03-24] MEDS: LISINOPRIL 5 MG TAB PO SCH (11:10)
[2024-03-24] MEDS: CLOPIDOGREL BISULFATE 75 MG TAB PO SCH (11:10)
[2024-03-24] MEDS: ASPirin 81 mg TAB PO SCH (11:10)
[2024-03-24 12:03] LABS: Urine Bacteria None Seen /hpf (None Seen)
[2024-03-24 12:11] LABS: Bilirubin, Total 0.6 mg/dL (0.2-1.0)
[2024-03-24 12:22] LABS: Sodium Urine 112 mmol/L (40-220)
[2024-03-24 12:27] LABS: Protein, Urine < 6.0 mg/dL (0.0-11.9)
[2024-03-24 12:28] LABS: Amphetamine Screen, Urine Neg (NEGATIVE)
[2024-03-24 12:29] LABS: Barbiturate Scree,Urine Neg (NEGATIVE); Benzodiazephine Screen, Urine Neg (NEGATIVE); Cannabinoid Screen, Urine Neg (NEGATIVE); Cocaine Screen, Urine Neg (NEGATIVE); Creatinine, Urine 47.98 mg/dL (30.0-125.0); Opiate Scree,Urine Neg (NEGATIVE); Phencyclidine Screen, Urine Neg (NEGATIVE)
[2024-03-24 12:32] LABS: Micro Albumin < 3.0 mg/L (<30.0); Urine Blood Negative /uL (Negative); Urine Clarity Clear (Clear); Urine Color Light-Yellow (Yellow); Urine Protein, UAD Negative (Negative); Urine Specific Gravity 1.012 (1.001-1.035); Urine Urobilinogen Normal (Negative); Urine WBC 1 /hpf (0 - 3); Urine pH 6.5 (5.0-9.0)
[2024-03-24 13:00] VITALS: BP 152/77; PULSE 80; RESP 18; TEMP 97.6; O2SAT 95
[2024-03-24 14:10] LABS: Free T3 3.43 pg/mL (2.3-4.2); Free T4 (Free Thyroxine) 0.96 ng/dL (0.89-1.76)
[2024-03-24] MEDS: FUROSEMIDE 20 MG/2 ML VIAL IV ONE (14:15)
[2024-03-24 16:35] LABS: Rapid Influenza A Negative (Negative); Rapid Influenza B Negative (Negative)
[2024-03-24 16:38] VITALS: BP 102/53; PULSE 69; RESP 18; TEMP 97.6; O2SAT 95
[2024-03-24 21:00] VITALS: BP 103/57; PULSE 68; RESP 20; TEMP 97.4; O2SAT 94
[2024-03-24] MEDS: ATORVASTATIN 20 MG TAB PO SCH (21:24)
[2024-03-25 01:00] VITALS: BP 113/63; PULSE 72; RESP 18; TEMP 98; O2SAT 94
[2024-03-25 05:00] VITALS: BP 103/57; PULSE 71; RESP 20; TEMP 97.7; O2SAT 96
[2024-03-25 06:22] LABS: LDL Cholesterol 27 mg/dL (< 100); Triglycerides 133 mg/dL (< 150)
[2024-03-25 06:23] LABS: Cholesterol 82 mg/dL (< 200)
[2024-03-25 06:24] LABS: HDL Cholesterol 29 mg/dL (40-59)
[2024-03-25 07:30] VITALS: BP 107/64; PULSE 67; RESP 19; TEMP 97.9; O2SAT 96
[2024-03-25 07:42] LABS: Chloride 105 mmol/L (98-107); Potassium 4.6 mmol/L (3.5-5.1); Sodium 136 mmol/L (136-145)
[2024-03-25 07:43] LABS: Anion Gap 4 (5-15); Basophils # (auto) 0 10 ^3/uL (0-0.2); Basophils % (auto) 0.5 % (0.0-2.0); Calcium 8.7 mg/dL (8.7-10.4); Carbon Dioxide 27 mmol/L (20-30); Eosinophils # (auto) 0.5 10 ^3/uL (0-0.8); Eosinophils % (auto) 4.7 % (0.0-7.0); Hematocrit 40.2 % (41.0-53.0); Hemoglobin 13.5 g/dL (13.5-17.5); Lymphocytes # (auto) 1.5 10 ^3/uL (0.4-5.4); Lymphocytes % (auto) 15.4 % (10.0-50.0); Mean Corpuscular Hemoglobin 31.9 pg (28.0-32.0); Mean Corpuscular Hgb Conc. 33.6 g/dL (32.0-36.0); Mean Corpuscular Volume 94.9 fL (80.0-100.0); Monocytes # (auto) 0.7 10 ^3/uL (0-1.3); Monocytes % (auto) 6.5 % (0.0-12.0); Neutrophils # (auto) 7.3 10 ^3/uL (1.6-8.6); Neutrophils % (auto) 72.9 % (37.0-80.0); Nucleated Red Blood Cells % 0.2 %; Red Blood Cells 4.24 10^6/uL (4.5-5.90); Red Cell Distribution Width 13.8 % (11.8-14.3)
[2024-03-25 07:48] LABS: BUN/Creatinine Ratio 21.5 (10.0-20.0); Blood Urea Nitrogen 26 mg/dL (9-23); Glucose 105 mg/dL (74-106)
[2024-03-25] MEDS: FUROSEMIDE 40 MG/4 ML VIAL IV SCH (10:00)
[2024-03-25] MEDS: NIFEdipine ER 30 MG TAB PO SCH (10:47)
[2024-03-25] MEDS: LISINOPRIL 20 MG TAB PO SCH (10:48)
[2024-03-25 12:30] VITALS: BP 141/61; PULSE 55; RESP 19; TEMP 98.1; O2SAT 92
[2024-03-25] MEDS ORDERED: LEVO50TA7 PO (14:32)
[2024-03-25 16:04] VITALS: BP 107/64; PULSE 81; TEMP 36.7
== END 2024-03-25 16:33 | disposition home or self-care (01) | DRG 291 ==
LOC: ER 14:27 → EDBD 14:27 → OVERFLOW 15:55 → WEST WING 22:26
PROVIDERS: ADMIT Student in an Organized Health Care Education/Training Program; ATTEND Student in an Organized Health Care Education/Training Program
DX: I13.0 Hypertensive heart and chronic kidney disease with heart failure and stage 1 through stage 4 chronic kidney disease, or unspecified chronic kidney disease (principal); I50.33 Acute on chronic diastolic (congestive) heart failure; J96.01 Acute respiratory failure with hypoxia; N17.9 Acute kidney failure, unspecified; Z20.822 Contact with and (suspected) exposure to COVID-19; I25.10 Atherosclerotic heart disease of native coronary artery without angina pectoris; K21.9 Gastro-esophageal reflux disease without esophagitis; E78.5 Hyperlipidemia, unspecified; E89.0 Postprocedural hypothyroidism; N28.89 Other specified disorders of kidney and ureter; E11.22 Type 2 diabetes mellitus with diabetic chronic kidney disease; N18.31 Chronic kidney disease, stage 3a; Z90.49 Acquired absence of other specified parts of digestive tract; Z98.61 Coronary angioplasty status; Z83.3 Family history of diabetes mellitus; Z95.1 Presence of aortocoronary bypass graft; Z79.84 Long term (current) use of oral hypoglycemic drugs; Z79.02 Long term (current) use of antithrombotics/antiplatelets; Z79.899 Other long term (current) drug therapy
CPT/HCPCS: 36415; 71045; 74178; 76775; 78582; 80048; 80053; 80061; 80307; 81001; 82043; 82306; 82570; 82607; 83036; 83735; 83880; 83930; 83935; 84100; 84133; 84156; 84300; 84439; 84443; 84481; 84484; 85025; 85379; 85610; 85730; 87426; 87804; 93005; 93970; 96374; G0378

== ENCOUNTER → 2024-04-06 | Outpatient (CLI) | payer OTHER ==
[~2024-04-06] MED LIST changes: +LEVO50TA7 PO
[2024-04-06 10:33] LABS: Chloride 101 mmol/L (98-107); Potassium 4.4 mmol/L (3.5-5.1); Sodium 131 mmol/L (136-145)
[2024-04-06 10:34] LABS: Anion Gap 4 (5-15); Carbon Dioxide 26 mmol/L (20-30)
[2024-04-06 10:35] LABS: Calcium 8.8 mg/dL (8.7-10.4)
[2024-04-06 10:39] LABS: BUN/Creatinine Ratio 14.9 (10.0-20.0); Blood Urea Nitrogen 30 mg/dL (9-23); Glucose 127 mg/dL (74-106)
== END | disposition home or self-care (01) ==
LOC: LAB 10:10
PROVIDERS: ATTEND Internal Medicine
DX: E11.69 Type 2 diabetes mellitus with other specified complication (principal); N17.9 Acute kidney failure, unspecified
CPT/HCPCS: 36415; 80048

== ENCOUNTER 2024-04-19 11:36 | Inpatient (IN) | payer OTHER ==
[~2024-04-19] VITALS: Ht 177.8 cm; Wt 107.0 kg
[2024-04-19 14:52] LABS: Basophils # (auto) 0 10 ^3/uL (0-0.2); Basophils % (auto) 0.4 % (0.0-2.0); Eosinophils # (auto) 0.3 10 ^3/uL (0-0.8); Eosinophils % (auto) 3.1 % (0.0-7.0); Hematocrit 39.9 % (41.0-53.0); Hemoglobin 13.7 g/dL (13.5-17.5); Lymphocytes # (auto) 1.5 10 ^3/uL (0.4-5.4); Mean Corpuscular Hemoglobin 32.7 pg (28.0-32.0); Mean Corpuscular Hgb Conc. 34.2 g/dL (32.0-36.0); Mean Corpuscular Volume 95.6 fL (80.0-100.0); Monocytes % (auto) 9.2 % (0.0-12.0); Neutrophils % (auto) 73.3 % (37.0-80.0); Nucleated Red Blood Cells % 0.1 %; Platelet Count (auto) 158 10^3/uL (140-450); Red Blood Cells 4.18 10^6/uL (4.5-5.90); White Blood Cell 10.9 10^3/uL (4.4-10.8)
[2024-04-19 15:23] LABS: Alanine Aminotransferase 33 U/L (7-40); Albumin 4.3 g/dL (3.2-4.8); Alkaline Phosphatase 54 U/L (46-116); Anion Gap 10 (5-15); Aspartate Aminotransferase 29 U/L (13-40); BUN/Creatinine Ratio 17.9 (10.0-20.0); Blood Urea Nitrogen 27 mg/dL (9-23); Calcium 8.9 mg/dL (8.7-10.4); Carbon Dioxide 19 mmol/L (20-30); Chloride 105 mmol/L (98-107); Glucose 99 mg/dL (74-106); Potassium 5.5 mmol/L (3.5-5.1); Sodium 134 mmol/L (136-145)
[2024-04-19 15:24] LABS: Total Protein 6.7 g/dL (5.7-8.2)
[2024-04-19] MEDS ORDERED: DEXTROSE (50%) 50ML SYRG IV PRN (18:00)
[2024-04-19] MEDS ORDERED: ONDANSETRON HCL 4 MG/2 ML VIAL IV PRN (18:00)
[2024-04-19] MEDS ORDERED: DOCUSATE SOD 100 MG CAP PO PRN (18:00)
[2024-04-19] MEDS ORDERED: ACETAMINOPHEN 325 MG TAB PO PRN (18:00)
[2024-04-19] MEDS ORDERED: NITROGLYCERIN 0.4 MG SL TAB SL PRN (19:30)
[2024-04-19] MEDS ORDERED: MORPHINE SULFATE INJ 2 MG/ml SYRG IV PRN (19:30)
[2024-04-19] MEDS: SODIUM CHLORIDE 0.9% 1,000 ML IV ONE (21:15)
[2024-04-19] MEDS: ATORVASTATIN 20 MG TAB PO SCH (21:28)
[2024-04-19] MEDS: SODIUM ZIRCONIUM CYCL 10 GM PAK PO ONE (21:28)
[2024-04-19] MEDS: cefTRIAXone 1GM/50ML D5W 50 ML IV ONE (21:28)
[2024-04-19] MEDS: InsuLIN REG 1unit/0.01ml Soln (100units/ml) SC SCH (22:00)
[2024-04-19] MEDS: SODIUM CHLOR 0.9% PF (SALINE LOCK) 10ML VIAL/SYR IV SCH (22:09)
[2024-04-19] MEDS: ACCU-CHEK COMFORT CURVE STRIP VI SCH (22:10)
[2024-04-19 22:26] VITALS: RESP 16; O2SAT 97
[2024-04-20] MEDS ORDERED: FURO40TA4 PO (00:14)
[2024-04-20] MEDS ORDERED: GABA-1250 PO (00:14)
[2024-04-20] MEDS ORDERED: NIFE1TAB30 PO (00:14)
[2024-04-20 01:00] VITALS: BP 112/65; PULSE 98; RESP 20; TEMP 97.7; O2SAT 96
[2024-04-20] MEDS: HYDROcodone-ACET 5/325MG TAB PO PRN (03:06)
[2024-04-20] MEDS: diphenhdrAMINE HCL 25 MG CAP PO ONE (04:51)
[2024-04-20] MEDS: LEVOTHYROXINE SODIUM 50 MCG TAB PO SCH (04:51)
[2024-04-20 05:00] VITALS: BP 113/57; PULSE 86; RESP 18; TEMP 97.8; O2SAT 95
[2024-04-20 07:37] LABS: Basophils # (auto) 0.1 10 ^3/uL (0-0.2); Basophils % (auto) 0.5 % (0.0-2.0); Eosinophils # (auto) 0.5 10 ^3/uL (0-0.8); Eosinophils % (auto) 5.1 % (0.0-7.0); Hematocrit 38.9 % (41.0-53.0); Hemoglobin 13.5 g/dL (13.5-17.5); Lymphocytes % (auto) 18.8 % (10.0-50.0); Mean Corpuscular Hemoglobin 33.4 pg (28.0-32.0); Mean Corpuscular Hgb Conc. 34.6 g/dL (32.0-36.0); Mean Corpuscular Volume 96.5 fL (80.0-100.0); Monocytes # (auto) 0.9 10 ^3/uL (0-1.3); Monocytes % (auto) 8.4 % (0.0-12.0); Neutrophils # (auto) 7.1 10 ^3/uL (1.6-8.6); Neutrophils % (auto) 67.2 % (37.0-80.0); Platelet Count (auto) 138 10^3/uL (140-450); Red Blood Cells 4.03 10^6/uL (4.5-5.90); Red Cell Distribution Width 13.7 % (11.8-14.3); White Blood Cell 10.5 10^3/uL (4.4-10.8)
[2024-04-20 07:43] LABS: Alanine Aminotransferase 34 U/L (7-40); Albumin 4.2 g/dL (3.2-4.8); Alkaline Phosphatase 54 U/L (46-116); Anion Gap 7 (5-15); Aspartate Aminotransferase 25 U/L (13-40); BUN/Creatinine Ratio 15.3 (10.0-20.0); Bilirubin, Total 0.8 mg/dL (0.2-1.0); Blood Urea Nitrogen 19 mg/dL (9-23); Calcium 8.5 mg/dL (8.7-10.4); Carbon Dioxide 23 mmol/L (20-30); Chloride 105 mmol/L (98-107); Glucose 128 mg/dL (74-106); Potassium 4.2 mmol/L (3.5-5.1); Sodium 135 mmol/L (136-145)
[2024-04-20 07:44] LABS: Total Protein 6.8 g/dL (5.7-8.2)
[2024-04-20 08:00] VITALS: PULSE 80
[2024-04-20 09:00] VITALS: BP 117/63; PULSE 80; RESP 18; TEMP 98; O2SAT 95
[2024-04-20] MEDS: ASPirin 81 mg TAB PO SCH (09:17)
[2024-04-20 09:33] LABS: Urine Bacteria None Seen /hpf (None Seen)
[2024-04-20 09:51] LABS: Urine Blood Negative /uL (Negative); Urine Clarity Clear (Clear); Urine Color Colorless (Yellow); Urine Protein, UAD Negative (Negative); Urine Specific Gravity 1.009 (1.001-1.035); Urine Urobilinogen Normal (Negative); Urine WBC 7 /hpf (0 - 3)
[2024-04-20 11:32] LABS: LDL Cholesterol 18 mg/dL (< 100); Triglycerides 104 mg/dL (< 150)
[2024-04-20 11:34] LABS: Cholesterol 72 mg/dL (< 200); HDL Cholesterol 34 mg/dL (40-59)
[2024-04-20 13:00] VITALS: BP 123/64; PULSE 78; RESP 18; TEMP 97.7; O2SAT 95
[2024-04-20] MEDS ORDERED: HYD1TP TOP (13:43)
== END 2024-04-20 14:48 | disposition home or self-care (01) | DRG 948 ==
LOC: ER 11:36 → EDBD 11:36 → TELE 19:22 → TELE-CENTR 19:22
PROVIDERS: ADMIT Internal Medicine; ATTEND Internal Medicine
DX: R53.1 Weakness (principal); N17.9 Acute kidney failure, unspecified; E87.5 Hyperkalemia; D72.829 Elevated white blood cell count, unspecified; K21.9 Gastro-esophageal reflux disease without esophagitis; E78.5 Hyperlipidemia, unspecified; I25.10 Atherosclerotic heart disease of native coronary artery without angina pectoris; E11.9 Type 2 diabetes mellitus without complications; I11.0 Hypertensive heart disease with heart failure; I95.1 Orthostatic hypotension; I50.9 Heart failure, unspecified; R26.2 Difficulty in walking, not elsewhere classified; Z83.3 Family history of diabetes mellitus; Z90.49 Acquired absence of other specified parts of digestive tract; Z95.1 Presence of aortocoronary bypass graft; Z79.4 Long term (current) use of insulin; Z79.899 Other long term (current) drug therapy
CPT/HCPCS: 36415; 70450; 71045; 80053; 80061; 81001; 82962; 83880; 84443; 84484; 85025; 93005; 93886; 97163; G0378

== ENCOUNTER 2024-04-23 02:03 | Inpatient (IN) | payer OTHER ==
[2024-04-23] VITALS (9 sets, daily range): BP systolic 108–130; BP diastolic 62–75; PULSE 63–88; RESP 15–19; TEMP 96.7–98.5; O2SAT 93–98
[~2024-04-23] VITALS: Ht 177.8 cm; Wt 108.7 kg
[~2024-04-23 02:03] MED LIST changes: +FURO40TA4 PO; +GABA-1250 PO; +HYD1TP TOP; -METF-370 PO; -NIFE1TAB30 PO
[2024-04-23] MEDS: LEVOTHYROXINE SODIUM 50 MCG TAB PO ONE (12:34)
[2024-04-23] MEDS: CLOPIDOGREL BISULFATE 75 MG TAB PO ONE (12:35)
[2024-04-23] MEDS: ASPirin 81 mg TAB PO ONE (12:35)
[2024-04-23] MEDS: LISINOPRIL 20 MG TAB PO ONE (12:35)
[2024-04-23] MEDS: dilTIAZem HCL 180MG ER CAP PO ONE (15:28)
[2024-04-23 18:00] LABS: Basophils # (auto) 0.1 10 ^3/uL (0-0.2); Basophils % (auto) 0.6 % (0.0-2.0); Eosinophils # (auto) 0.3 10 ^3/uL (0-0.8); Eosinophils % (auto) 3.5 % (0.0-7.0); Hematocrit 38.4 % (41.0-53.0); Hemoglobin 13.2 g/dL (13.5-17.5); Lymphocytes # (auto) 1.3 10 ^3/uL (0.4-5.4); Lymphocytes % (auto) 15.5 % (10.0-50.0); Mean Corpuscular Hemoglobin 33.3 pg (28.0-32.0); Mean Corpuscular Hgb Conc. 34.5 g/dL (32.0-36.0); Mean Corpuscular Volume 96.5 fL (80.0-100.0); Monocytes # (auto) 0.7 10 ^3/uL (0-1.3); Monocytes % (auto) 8.4 % (0.0-12.0); Neutrophils # (auto) 6.1 10 ^3/uL (1.6-8.6); Nucleated Red Blood Cells % 0.1 %; Platelet Count (auto) 140 10^3/uL (140-450); Red Blood Cells 3.98 10^6/uL (4.5-5.90); Red Cell Distribution Width 13.6 % (11.8-14.3); White Blood Cell 8.4 10^3/uL (4.4-10.8)
[2024-04-23] MEDS ORDERED: ENOXAPARIN SOD 40 MG/0.4 ML SYRINGE SC ONE (18:30)
[2024-04-23 18:35] LABS: Alanine Aminotransferase 44 U/L (7-40); Albumin 4.1 g/dL (3.2-4.8); Alkaline Phosphatase 49 U/L (46-116); Anion Gap 6 (5-15); Aspartate Aminotransferase 33 U/L (13-40); BUN/Creatinine Ratio 13.6 (10.0-20.0); Bilirubin, Total 0.4 mg/dL (0.2-1.0); Blood Urea Nitrogen 16 mg/dL (9-23); Calcium 8.8 mg/dL (8.7-10.4); Carbon Dioxide 25 mmol/L (20-30); Chloride 108 mmol/L (98-107); Glucose 107 mg/dL (74-106); Magnesium 2.3 mg/dL (1.6-2.6); Phosphorus 3.8 mg/dL (2.4-5.1); Potassium 4.7 mmol/L (3.5-5.1); Sodium 139 mmol/L (136-145); Total Protein 6.5 g/dL (5.7-8.2)
[2024-04-23 22:11] LABS: Urine Bacteria None Seen /hpf (None Seen)
[2024-04-23] MEDS: CLOTRIMAZOLE 1 % CREAM 15GM TOP SCH (22:11)
[2024-04-23] MEDS: ENOXAPARIN SOD 40 MG/0.4 ML SYRINGE SC ONE (22:12)
[2024-04-23] MEDS: ATORVASTATIN 20 MG TAB PO SCH (22:13)
[2024-04-23] MEDS: diphenhdrAMINE HCL 25 MG CAP PO PRN (22:19)
[2024-04-23 22:27] LABS: Urine Blood Negative /uL (Negative); Urine Clarity Clear (Clear); Urine Color Light-Yellow (Yellow); Urine Mucus FEW (None Seen); Urine Protein, UAD Negative (Negative); Urine Specific Gravity 1.024 (1.001-1.035); Urine Urobilinogen Normal (Negative); Urine WBC 1 /hpf (0 - 3); Urine pH 5.5 (5.0-9.0)
[2024-04-23 22:29] LABS: Amphetamine Screen, Urine Neg (NEGATIVE); Barbiturate Scree,Urine Neg (NEGATIVE); Cocaine Screen, Urine Neg (NEGATIVE); Opiate Scree,Urine Neg (NEGATIVE)
[2024-04-23 22:30] LABS: Cannabinoid Screen, Urine Neg (NEGATIVE); Phencyclidine Screen, Urine Neg (NEGATIVE)
[2024-04-23 22:56] LABS: Benzodiazephine Screen, Urine Neg (NEGATIVE)
[2024-04-24] VITALS (8 sets, daily range): BP systolic 108–129; BP diastolic 53–81; PULSE 58–87; RESP 14–18; TEMP 97.8–98.4; O2SAT 95–98
[2024-04-24 01:31] LABS: Rapid Influenza A Negative (Negative); Rapid Influenza B Negative (Negative)
[2024-04-24 01:32] LABS: COVID19 ANTIGEN SOFIA FIA NEGATIVE (NEGATIVE)
[2024-04-24] MEDS: LEVOTHYROXINE SODIUM 50 MCG TAB PO SCH (05:34)
[2024-04-24 08:30] LABS: Basophils # (auto) 0.1 10 ^3/uL (0-0.2); Basophils % (auto) 0.5 % (0.0-2.0); Eosinophils # (auto) 0.5 10 ^3/uL (0-0.8); Hematocrit 41.5 % (41.0-53.0); Hemoglobin 14.2 g/dL (13.5-17.5); Lymphocytes # (auto) 1.7 10 ^3/uL (0.4-5.4); Lymphocytes % (auto) 17.5 % (10.0-50.0); Mean Corpuscular Hemoglobin 32.8 pg (28.0-32.0); Mean Corpuscular Hgb Conc. 34.1 g/dL (32.0-36.0); Mean Corpuscular Volume 96.2 fL (80.0-100.0); Monocytes # (auto) 0.6 10 ^3/uL (0-1.3); Monocytes % (auto) 6.5 % (0.0-12.0); Neutrophils # (auto) 6.7 10 ^3/uL (1.6-8.6); Neutrophils % (auto) 70.5 % (37.0-80.0); Nucleated Red Blood Cells % 0.1 %; Platelet Count (auto) 170 10^3/uL (140-450); Red Blood Cells 4.31 10^6/uL (4.5-5.90); Red Cell Distribution Width 14.1 % (11.8-14.3); White Blood Cell 9.5 10^3/uL (4.4-10.8)
[2024-04-24 08:40] LABS: Chloride 107 mmol/L (98-107); Potassium 4.5 mmol/L (3.5-5.1); Sodium 139 mmol/L (136-145)
[2024-04-24 08:41] LABS: Anion Gap 6 (5-15); Carbon Dioxide 26 mmol/L (20-30)
[2024-04-24 08:42] LABS: Calcium 9.2 mg/dL (8.7-10.4)
[2024-04-24 08:46] LABS: Glucose 113 mg/dL (74-106)
[2024-04-24 08:47] LABS: Blood Urea Nitrogen 16 mg/dL (9-23); Magnesium 2.3 mg/dL (1.6-2.6)
[2024-04-24] MEDS: dilTIAZem HCL 180MG ER CAP PO SCH (10:09)
[2024-04-24] MEDS: CLOPIDOGREL BISULFATE 75 MG TAB PO SCH (10:10)
[2024-04-24] MEDS: ASPirin 81 mg TAB PO SCH (10:10)
[2024-04-24] MEDS: LISINOPRIL 20 MG TAB PO SCH (10:10)
[2024-04-24] MEDS: ENOXAPARIN SOD 40 MG/0.4 ML SYRINGE SC SCH (10:10)
[2024-04-25] VITALS (11 sets, daily range): BP systolic 99–134; BP diastolic 50–73; PULSE 50–89; RESP 16–18; TEMP 36.6; O2SAT 96–98
[2024-04-25] MEDS: HYDROcodone-ACET 7.5/325MG TAB PO PRN (00:53)
[2024-04-25 10:17] LABS: Basophils # (auto) 0 10 ^3/uL (0-0.2); Basophils % (auto) 0.5 % (0.0-2.0); Eosinophils # (auto) 0.4 10 ^3/uL (0-0.8); Eosinophils % (auto) 5.3 % (0.0-7.0); Lymphocytes # (auto) 1.1 10 ^3/uL (0.4-5.4); Lymphocytes % (auto) 14.9 % (10.0-50.0); Mean Corpuscular Hemoglobin 32.7 pg (28.0-32.0); Mean Corpuscular Hgb Conc. 34.1 g/dL (32.0-36.0); Mean Corpuscular Volume 95.7 fL (80.0-100.0); Monocytes # (auto) 0.5 10 ^3/uL (0-1.3); Monocytes % (auto) 6.5 % (0.0-12.0); Neutrophils # (auto) 5.4 10 ^3/uL (1.6-8.6); Neutrophils % (auto) 72.8 % (37.0-80.0); Nucleated Red Blood Cells % 0.4 %; Platelet Count (auto) 140 10^3/uL (140-450); Red Blood Cells 3.97 10^6/uL (4.5-5.90); Red Cell Distribution Width 13.6 % (11.8-14.3); White Blood Cell 7.4 10^3/uL (4.4-10.8)
[2024-04-25 10:44] LABS: Anion Gap 7 (5-15); Calcium 8.8 mg/dL (8.7-10.4); Carbon Dioxide 25 mmol/L (20-30); Chloride 107 mmol/L (98-107); Potassium 4.2 mmol/L (3.5-5.1); Sodium 139 mmol/L (136-145)
[2024-04-25 10:50] LABS: BUN/Creatinine Ratio 14.3 (10.0-20.0); Blood Urea Nitrogen 16 mg/dL (9-23); Glucose 140 mg/dL (74-106)
[2024-04-25 10:51] LABS: Magnesium 2.2 mg/dL (1.6-2.6)
== END 2024-04-25 18:30 | disposition home or self-care (01) | DRG 74 ==
LOC: TELE-WESTW 02:03
PROVIDERS: ADMIT Internal Medicine; ATTEND Internal Medicine
DX: G90.4 Autonomic dysreflexia (principal); I50.32 Chronic diastolic (congestive) heart failure; I95.1 Orthostatic hypotension; I16.0 Hypertensive urgency; E11.9 Type 2 diabetes mellitus without complications; E66.9 Obesity, unspecified; I11.0 Hypertensive heart disease with heart failure; J44.9 Chronic obstructive pulmonary disease, unspecified; E78.5 Hyperlipidemia, unspecified; I25.10 Atherosclerotic heart disease of native coronary artery without angina pectoris; I49.3 Ventricular premature depolarization; E03.9 Hypothyroidism, unspecified; B35.4 Tinea corporis; I08.1 Rheumatic disorders of both mitral and tricuspid valves; T50.995A Adverse effect of other drugs, medicaments and biological substances, initial encounter; Z95.1 Presence of aortocoronary bypass graft; Z83.3 Family history of diabetes mellitus; Z79.4 Long term (current) use of insulin; Y92.89 Other specified places as the place of occurrence of the external cause; Z68.32 Body mass index [BMI] 32.0-32.9, adult
CPT/HCPCS: 36415; 70450; 80048; 80053; 80307; 80320; 81001; 82533; 83735; 83880; 84100; 84484; 85025; 87081; 87426; 87804; 93005; 93306; 97110; 97116; 97163; 97530; G0378

== ENCOUNTER → 2024-05-30 | Outpatient (CLI) | payer OTHER ==
[~2024-05-30] MED LIST changes: -FURO40TA4 PO; -GABA-1250 PO; -HYD1TP TOP
[2024-05-30 07:27] LABS: Basophils # (auto) 0 10 ^3/uL (0-0.2); Basophils % (auto) 0.1 % (0.0-2.0); Eosinophils # (auto) 0 10 ^3/uL (0-0.8); Hematocrit 42.6 % (41.0-53.0); Hemoglobin 14.4 g/dL (13.5-17.5); Lymphocytes # (auto) 1.1 10 ^3/uL (0.4-5.4); Lymphocytes % (auto) 6.7 % (10.0-50.0); Mean Corpuscular Hemoglobin 33.1 pg (28.0-32.0); Mean Corpuscular Hgb Conc. 33.9 g/dL (32.0-36.0); Mean Corpuscular Volume 97.6 fL (80.0-100.0); Monocytes # (auto) 0.8 10 ^3/uL (0-1.3); Monocytes % (auto) 5.3 % (0.0-12.0); Neutrophils # (auto) 13.9 10 ^3/uL (1.6-8.6); Neutrophils % (auto) 87.9 % (37.0-80.0); Platelet Count (auto) 151 10^3/uL (140-450); Red Blood Cells 4.36 10^6/uL (4.5-5.90); Red Cell Distribution Width 13.6 % (11.8-14.3); White Blood Cell 15.8 10^3/uL (4.4-10.8)
[2024-05-30 07:59] LABS: Alanine Aminotransferase 41 U/L (7-40); Albumin 4.2 g/dL (3.2-4.8); Alkaline Phosphatase 57 U/L (46-116); Anion Gap 6 (5-15); Aspartate Aminotransferase 28 U/L (13-40); BUN/Creatinine Ratio 18.7 (10.0-20.0); Bilirubin, Total 0.5 mg/dL (0.2-1.0); Blood Urea Nitrogen 23 mg/dL (9-23); Calcium 9.1 mg/dL (8.7-10.4); Carbon Dioxide 26 mmol/L (20-31); Chloride 107 mmol/L (98-107); Glucose 179 mg/dL (74-106); Potassium 4.6 mmol/L (3.5-5.1); Sodium 139 mmol/L (136-145); Total Protein 6.5 g/dL (5.7-8.2)
== END | disposition home or self-care (01) ==
LOC: LAB 06:41
PROVIDERS: ATTEND Internal Medicine
DX: I13.0 Hypertensive heart and chronic kidney disease with heart failure and stage 1 through stage 4 chronic kidney disease, or unspecified chronic kidney disease (principal); E11.22 Type 2 diabetes mellitus with diabetic chronic kidney disease; N18.32 Chronic kidney disease, stage 3b; I50.9 Heart failure, unspecified; D69.6 Thrombocytopenia, unspecified; R60.0 Localized edema
CPT/HCPCS: 36415; 80053; 85025

== ENCOUNTER → 2024-06-03 | Outpatient (CLI) | payer OTHER ==
[2024-06-03 08:11] LABS: Hematocrit 45.7 % (41.0-53.0); Hemoglobin 15.3 g/dL (13.5-17.5); Mean Corpuscular Hemoglobin 32.5 pg (28.0-32.0); Mean Corpuscular Hgb Conc. 33.6 g/dL (32.0-36.0); Platelet Count (auto) 149 10^3/uL (140-450); Red Blood Cells 4.71 10^6/uL (4.5-5.90); Red Cell Distribution Width 13.9 % (11.8-14.3); White Blood Cell 13.3 10^3/uL (4.4-10.8)
[2024-06-03 08:16] LABS: Basophils % (manual) 0 (0.0-2.0); Blast Cells 0; Metamyelocytes % 0; Myelocytes % 0; Promyelocytes % 0; Reactive Lymphocytes 0
[2024-06-03 08:30] LABS: Band Neutrophils % (manual) 4; Eosinophils % (manual) 2 (0-7); Lymphocytes % (manual) 18 (10.0-50.0); Monocytes % (manual) 7 (0-12); Platelet Estimate Adequate; RBC Morphology Normal
[2024-06-03 08:37] LABS: Alanine Aminotransferase 44 U/L (7-40); Albumin 3.9 g/dL (3.2-4.8); Alkaline Phosphatase 48 U/L (46-116); Anion Gap 3 (5-15); Aspartate Aminotransferase 22 U/L (13-40); BUN/Creatinine Ratio 15.7 (10.0-20.0); Blood Urea Nitrogen 20 mg/dL (9-23); Calcium 8.9 mg/dL (8.7-10.4); Carbon Dioxide 30 mmol/L (20-31); Chloride 107 mmol/L (98-107); Glucose 119 mg/dL (74-106); Potassium 4.5 mmol/L (3.5-5.1); Sodium 140 mmol/L (136-145)
[2024-06-03 08:38] LABS: Bilirubin, Total 0.5 mg/dL (0.2-1.0); Total Protein 6.2 g/dL (5.7-8.2)
== END | disposition home or self-care (01) ==
LOC: LAB 07:52
PROVIDERS: ATTEND Internal Medicine
DX: I50.32 Chronic diastolic (congestive) heart failure (principal)
CPT/HCPCS: 36415; 80053; 85007; 85027

== ENCOUNTER → 2024-12-09 | Outpatient (CLI) | payer OTHER ==
[~2024-12-09] MED LIST changes: +DILT360C37 PO
[2024-12-09 06:23] LABS: Urine Bacteria None Seen /hpf (None Seen)
[2024-12-09 06:56] LABS: Basophils # (auto) 0 10 ^3/uL (0-0.2); Basophils % (auto) 0.6 % (0.0-2.0); Eosinophils # (auto) 0.4 10 ^3/uL (0-0.8); Hematocrit 46.6 % (41.0-53.0); Hemoglobin 15.4 g/dL (13.5-17.5); Lymphocytes # (auto) 1.8 10 ^3/uL (0.4-5.4); Lymphocytes % (auto) 24.4 % (10.0-50.0); Mean Corpuscular Hemoglobin 31.5 pg (28.0-32.0); Mean Corpuscular Hgb Conc. 33.1 g/dL (32.0-36.0); Mean Corpuscular Volume 95.1 fL (80.0-100.0); Monocytes # (auto) 0.6 10 ^3/uL (0-1.3); Monocytes % (auto) 8.4 % (0.0-12.0); Neutrophils # (auto) 4.6 10 ^3/uL (1.6-8.6); Neutrophils % (auto) 61.6 % (37.0-80.0); Nucleated Red Blood Cells % 0.2 %; Platelet Count (auto) 125 10^3/uL (140-450); Red Cell Distribution Width 14.6 % (11.8-14.3); White Blood Cell 7.5 10^3/uL (4.4-10.8)
[2024-12-09 07:00] LABS: Urine Blood Negative /uL (Negative); Urine Clarity Clear (Clear); Urine Color Light-Yellow (Yellow); Urine Protein, UAD Negative (Negative); Urine Specific Gravity 1.018 (1.001-1.035); Urine Squamous Epithelial Cell FEW /hpf (<5); Urine Urobilinogen Normal (Negative); Urine WBC 1 /HPF (0-3)
[2024-12-09 07:33] LABS: Alanine Aminotransferase 34 U/L (7-40); Albumin 4.6 g/dL (3.2-4.8); Alkaline Phosphatase 49 U/L (46-116); Anion Gap 7 (5-15); Aspartate Aminotransferase 36 U/L (13-40); BUN/Creatinine Ratio 10.1 (10.0-20.0); Bilirubin, Total 0.5 mg/dL (0.2-1.0); Blood Urea Nitrogen 14 mg/dL (9-23); Calcium 9.2 mg/dL (8.7-10.4); Carbon Dioxide 28 mmol/L (20-31); Chloride 104 mmol/L (98-107); Cholesterol 93 mg/dL (< 200); HDL Cholesterol 42 mg/dL (40-59); LDL Cholesterol 31 mg/dL (< 100); Potassium 4.9 mmol/L (3.5-5.1); Sodium 139 mmol/L (136-145); Triglycerides 112 mg/dL (< 150)
[2024-12-09 07:34] LABS: Prostate Specific Antigen 0.85 ng/mL (0.0-4.0)
[2024-12-09 07:35] LABS: Glucose 134 mg/dL (74-106)
== END | disposition home or self-care (01) ==
LOC: LAB 06:05
PROVIDERS: ATTEND Internal Medicine
DX: Z12.5 Encounter for screening for malignant neoplasm of prostate (principal); Z13.1 Encounter for screening for diabetes mellitus; I25.810 Atherosclerosis of coronary artery bypass graft(s) without angina pectoris; I11.0 Hypertensive heart disease with heart failure; I50.9 Heart failure, unspecified; E78.5 Hyperlipidemia, unspecified; D72.828 Other elevated white blood cell count; R94.4 Abnormal results of kidney function studies; R74.01 Elevation of levels of liver transaminase levels; Z00.01 Encounter for general adult medical examination with abnormal findings
CPT/HCPCS: 36415; 80053; 80061; 81001; 83036; 84153; 84439; 84443; 85025